=== PATIENT | female | born 1985 | race Caucasian/White ===

== ENCOUNTER 2023-04-14 19:31 | Observation (INO) ==
--- OUTSIDE RECORDS SUMMARY | 2023-04-14 19:37 | External Medical Summary | Continuity of Care Document ---
Author Name Unknown Organization [facility] [address] Address [address] [place] [id number] Care Team Providers Care Department Supervisor Name Role Phone Chiara Fortune Primary Care Physician [phone] [id number] Date[facility]s): 03/18/23 - 03/18/23 [facility] [address] [facility] [address] [place] [address], [address] [place] [address] [phone] Encounter Diagnosis 34 weeks gestation of (Discharge Diagnosis) - 03/18/23 Discharge Disposition: Home or Self Care Attending Physician: RYAN Hung Amy L Referring Physician: MD Tricia, Phong Gilbert Allergies, Adverse Reactions, Alerts No Known Allergies Immunizations Given and Recorded Vaccine Date Status Refusal Reason tetanus/diphtheria/pertuss, acel (Tdap) 02/07/23 G iven SARS-CoV-2 mRNA-1273 (6y+ bivalent) 02/06/22 Recor ded influenza virus vaccine, inactivated 02/02/21 Colt rded SARS-CoV-2 (COVID-19) mRNA BNT-162b2 vax 1 06/21/20 Recorded SARS-CoV-2 (COVID-19) mRNA BNT-162b2 vax 2 05/31/20 Recorded 1Result Comment: 2021-02-13: Historical information-source unspecified 2Result Comment: 2021-02-13: Historical information-source unspecified Medications aspirin 81 mg oral delayed release tablet Start: 03/18/23 13:25:00 EST, 1 tab, PO, Daily Start Date: 03/18/23 Status: Ordered enoxaparin 60 mg/0.6 mL injectable solution Start: 08/22/22 8:26:00 EDT, 60 mg =, subQ, q12h, Disp# 180 pen_needle, Refills: 3, Pharmacy: [facility] Start Date: 08/22/22 Stop Date: 08/17/23 Status: Ordered Flagyl 250 mg oral tablet Start: 03/07/23 15:05:00 EST, 2 tab, PO, q12h, Disp# 28, Pharmacy: [id number] Start Date: 03/07/23 Stop Date: 03/14/23 Status: Ordered Lasix 20 mg oral tablet Start: 12/20/22 15:11:00 EDT, 0.5 tab, PO, Daily, Disp# 30 tab, Refills: 3, Pharmacy: [id number] Start Date: 12/20/22 Status: Ordered Metoprolol Succinate ER 25 mg oral tablet, extended release Start: 02/09/23 12:15:00 EDT, See Instructions, Disp# 180 tab, Refills: 3, Take 1.5 tablets by mouth every evening (37.5 mg PO qPM), Pharmacy: [id number] Start Date: 02/09/23 Status: Ordered 1 Plus 1 oral tablet Start: 11/16/20 8:14:00 EDT, 1 tab, PO, Daily Start Date: 11/16/20 Status: Ordered Vitamin D2 Start: 12/10/18 15:57:00 EDT, 2 gummies, PO, Daily Start Date: 12/10/18 Status: Ordered Problem List Condition Confirmation Course Effective Dates Status H ealth Status Informant Junctional rhythm Confirmed Active Pacemaker Confirmed Active Cardiomyopathy Confirmed Active Complete heart block Confirmed Active History of complete heart block Confirmed Active History of TIA (transient ischemic attack) Confirmed Active Urine frequency Confirmed Active Iron deficiency anemia due to chronic blood loss Confirmed Active 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 Chronic anticoagulation Confirmed Active Spontaneous Confirmed Active Advanced maternal age in multigravida Confirmed Active Paroxysmal atrial fibrillation Confirmed Active Preop examination Confirmed Active Encounter for preconception consultation Confirmed Active Anticoagulation management encounter Confirmed Active Confirmed 07/22/22 Active Pulmonary hypertension Confirmed Active Right ventricular dilation Confirmed Active 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 Confirmed Active Urgency of urination Confirmed Active Septate uterus Confirmed Active PVC (premature ventricular contraction) Confirmed Active Diagnosis Diagnosis Type Effective Dates Health Status Cl inical Service Informant 34 weeks gestation of Discharge Diagnosis 03/18/23 Procedures Procedure Date Related Diagnosis Body Site Status Shave biopsy 1 09/15/20 Completed Cardioversion 2 10/01/19 Completed Pacemaker catheter, device 05/2019 Completed D&C - Dilatation and curettage 12/21/17 Completed 12/11/17 Completed [place] tooth extraction 2007 C ompleted uterine septum removal Co mpleted 1pelvic abdomen 2Underlying rhythm Afib with V Pacing Attempted CV with 200 joules x3 in sync biphasic mode without nondenominational of NSR Procedure aborted after three attempts Social History Social History Type Response Smoking Status Never smoked cigaret petra Sex Female Implantable Device List Procedure Provider Procedure Date Device Type Site Unknown Unknown 03/16/20 Unknown Unknown Device Identifier Serial Number Lot or Batch Number Manufacturing Date Expiration Date Distinct Identification Code MRI Safety Implantable Status Assigning Authority Unknown Unknown [id number] Unknown 02/20/22 Unknown Unknown Active Edink roderick Note * MD Stan, Livia Phillips: VERIFY, PERFORM Event Display: Report Authored Date: SERVICE(S) PROVIDED: Limited 97750 INDICATIONS: 34 weeks gestation of Z3A.34 Maternal cardiac disease growth restriction [employer] MANAGER: Technique: N/A EVALUATION: Num Of Fetuses: 1 Heart Rate(bpm): 138 Cardiac Activity: Present Presentation: Cephalic Placenta: Posterior Amniotic Fluid GUILLERMO FV: Within normal limits Largest Pocket(cm) 7.2 GESTATIONAL AGE: LMP: 34w 1d Date: 07/22/22 EVY: 04/28/23 Best: 34w 1d Det. By: LMP (07/22/22) EVY: 04/28/23 CERVIX UTERUS ADNEXA: Cervix Poorly seen due to late gestational age Uterus Previoiusly described uterine synechia not appreciated today. IMPRESSION: Reviewed: Normal AFV. Livia Pierce MD Electronically Signed Final Report 03/18/2023 12:20 pm Patient Care team information Care Team Personnel Name: MD Vishal, Vipin Rodríguez Position: Physician Member Role: Lifetime Relationship Address: Address: [address] [place] [id number] [place] Name: DO Fortune Kristen M Position: Physician - Family Med Member Role: Primary Care Provider Address: Address: [address] [place] [address] [place] Name: RYAN Bergman Stacey L Position: Nurse Pract - Cardiology Member Role: Lifetime Relationship Address: Address: [address] [place] [address] [place] Name: MD Bhatt Jansie Position: Physician - Anesthesiologist Member Role: Lifetime Relationship Address: Address: [address] [place] [id number] [place] Care Team Related Persons Name: REGINA LARRY Name: RACHEL DAVIES
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
--- OUTSIDE RECORDS SUMMARY | 2023-04-14 19:37 | External Medical Summary | Continuity of Care Document ---
Author Name Unknown Organization [place] [id number] [address] Address [address] [place] [address] [address] [place] [phone] Care Team Providers Care Divinity Professor Name Role Phone Chiara Fortune Primary Care Physician [phone] [facility] [id number] Date(s): 02/07/23 - [facility]07/23 [facility] [facility] Obstetrics and Gynecology [address] [place] [address], [address] [place] [address] [phone] Encounter Diagnosis Vaginal discharge in (Discharge Diagnosis) - 02/07/23 28 weeks gestation of (Discharge Diagnosis) - 02/07/23 Cardiomyopathy(Discharge Diagnosis) - 02/07/23 Discharge Disposition: Home or Self Care Attending Physician: MD Pierce Lauren A Referring Physician: MD Tricia, Phong Gilbert Allergies, Adverse Reactions, Alerts No Known Allergies Assessment and Plan Extracted from: Title:MFM Clinic Note Author:MD Sunil, Elias Ferraro Date:02/07/23 Patient is a 37yo at 28w4d with complicated by LV noncompaction cardiomyopathy, severe tricuspid regurgitation 1. 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 Repeat monthly - [employer] genetic testing in 2019 showed LMNA 2.Junctional rhythm with underlying atrial fibrillation s/p dual chamber pacemaker -Medtronic pacemaker in place, planned interrogation for 02/22/23 3.History ofTIA due to A fib -Continue Lovenox 60 mg BID 4. L subclavian DVT, chronic - Continue Lovenox 60mg BID for therapeutic anticoagulation -Uptitrate as needed according to weight gain in (1mg/kg BID) -On Eliquis outside of 5. History of delivery x 1 -Secondary to malpresentation -Planning for repeat delivery 6. History of GHTN in previous -Continue Aspirin 81 mg daily 7. 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 Iron deficiency anemia, resolved - Following with Dr. Rodgers -Most recently hemoglobin 11.0 02/05/23 9. AMA -Low risk NIPT, XY 10. History of growth restriction in previous -EFW 22% on ultrasound today. Next growth ultrasound scheduled for 03/07/23 11. 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 12. Routine care - 1hr GCT 77 -TDAP administered today GBS: unknown, to be collected at 36-37 weeks gestation Contraception: Levonorgestrel IUD at the time of delivery Delivery planning:Repeat deliveryandMirena IUDat 39 weeks, or sooner if any maternal or indications arise. Plan to stop Lovenox 24h prior to procedure 13. Vaginal discharge -Genital culture pending, will make patient aware of results when available and treat accordingly Extracted from: Title:Cardiology Office Visit Note Author:Vladimir García Amanda Date:02/07/23 Ms. Larry is a 37 yo F w ith a history of noncompaction cardiomyopathy (LMNA mutation of unknown clinical significance)and a junctional heart rhythm s/p dual chamber pacemaker placement who presents for follow up in the Cardio-Obstetrics clinic. She is a at 28+4 weeks' gestation (EVY 04/28/23). Ms. Larry continues to be stable. She had some episodes of NSVT on her cardiac device interrogation that were self limiting. We increased her beta mirlande dose but unfortunately she is not able to tolerate much of a chance due to fatigue and lightheadedness (likely also low BPs at baseline that may be affected by the increase). I discussed the NSVT episodes with Drs. Vega (ACHD/ Cardio-OB), Shane (primary home theater installer), and Tori (EP) and it is the consensus to try the increase in BB and continue monitoring, with another device check scheduled for 02/22. If she has further episodes of NSVT, especially those that would be longer or associated with symptoms of presyncope or syncope, she may require a Life Vest for the remainder of . We also discussed Ms. Larry's case at our monthly high risk Cardio-OB conference on 02/06, and the plan is for her to have an Anesthesia consult, SICU admission, planned CVC and A line, and delivery in the main OR. PACHD will be consulted while she is admitted for L&D. In the interim, we will continue to see her monthly with an echocardiogram ahead of her visit and keep in touch with her closelyto assess any new symptomsor concerns she may have. After delivery, she will need a referral to our Advanced Heart Failure colleagues for discussion of herLMNA mutation, given that she has several phenotypicallyconcordant cardiac features with classiclamin cardiomyopathy, desite her mutation of unknown clinical significance. Plan summary: - Reduce BB to 6.25 mg qAM and 25 mg qPM - If she is unable to tolerate this, stay with 25 mg qPM as previously tolerated - Repeat device interrogation 02/22/23 - Echo and return visit in 1 month. I will need to see her as an add-on 03/07 given that I am on inpatient service at that time - Delivery planning per M team, anticipate 39 weeks I saw an examined the patient today. I spent a total of45 minutes in care for the patient today. This includes review of data, formulation ofand coordination of care plan, and actual care provided to the patient. Greater than 50% of this time was spent in debb-vm-[id number] time with the patient in the clinic visit, where I explained in detail and counseledthe patient regarding his/ her/ theircurrent diagnoses, results of testing done thus far, andmanagement plan. Candy García MD [facility] Vessel Specialistgaming commissioner Adult Congenital Heart Disease and Cardio-Obstetrics Division of Cardiology, [facility] [place] Immunizations Given and Recorded Vaccine Date Status Refusal Reason tetanus/diphtheria/pertuss, acel (Tdap) 02/07/23 G iven SARS-CoV-2 mRNA-1273 (6y+ bivalent) 02/06/22 Recor ded influenza virus vaccine, inactivated 02/02/21 Colt rded SARS-CoV-2 (COVID-19) mRNA BNT-162b2 vax 1 06/21/20 Recorded SARS-CoV-2 (COVID-19) mRNA BNT-162b2 vax 2 05/31/20 Recorded 1Result Comment: 2021-02-13: Historical information-source unspecified 2Result Comment: 2021-02-13: Historical information-source unspecified Medications enoxaparin 60 mg/0.6 mL injectable solution Start: 08/22/22 8:26:00 EDT, 60 mg =, subQ, q12h, Disp# 180 pen_needle, Refills: 3, Pharmacy: [facility] Start Date: 08/22/22 Stop Date: 08/17/23 Status: Ordered Lasix 20 mg oral tablet Start: 12/20/22 15:11:00 EDT, 0.5 tab, PO, Daily, Disp# 30 tab, Refills: 3, Pharmacy: [id number] Start Date: 12/20/22 Status: Ordered Metoprolol Succinate ER 25 mg oral tablet, extended release Start: 02/09/23 12:15:00 EDT, See Instructions, Disp# 180 tab, Refills: 3, Take 1.5 tablets by mouth every evening (37.5 mg PO qPM), Pharmacy: [id number] Start Date: 02/09/23 Status: Ordered 1 Plus 1 oral tablet Start: 11/16/20 8:14:00 EDT, 1 tab, PO, Daily Start Date: 11/16/20 Status: Ordered Vitamin D2 Start: 12/10/18 15:57:00 EDT, See Instructions, 2 gummies daily Start Date: 12/10/18 Status: Ordered Mental Status 02/07/23 Barriers to Learning one year None evide nt Mandatory Health Literacy Documentation Yes Health Literacy Communication Barriers N ever Primary Language Equatorial Guinean Problem List Condition Confirmation Course Effective Dates [...] Diagnosis Diagnosis Type Effective Dates Health Status Clinical Service Informant 28 weeks gestation of Discharge Diagnosis 02/07/23 Vaginal discharge in Discharge Diagnosis 02/07/23 Non-Specified Cardiomyopathy Discharge Diagnosis 02/07/23 Non-Specified Procedures Procedure Date Related Diagnosis Body Site Status Shave biopsy 1 09/15/20 Completed Cardioversion 2 10/01/19 Completed Pacemaker catheter, device 05/2019 Completed D&C - Dilatation and curettage 12/21/17 Completed 12/11/17 Completed [place] tooth extraction 2007 C ompleted uterine septum removal Co mpleted 1pelvic abdomen 2Underlying rhythm Afib with V Pacing Attempted CV with 200 joules x3 in sync biphasic mode without spiritism of NSR Procedure aborted after three attempts Results Laboratory List Name Date Urine Protein/Glucose POC Outpt 02/07/23 Most recent to oldest [Reference Range]: 1 Glucose Urine Dipstick Ref Range [negati ve] (02/07/23 11:16 AM) Protein Urine Dipstick Ref Range [negati ve] (02/07/23 11:16 AM) U Protein Negative 1 (02/07/23 11:16 AM) U Gluc Negative (02/07/23 11:16 AM) 1Result Comment: Performed at: [facility]etrics [facility]necology, [address], [address], [place] [address] Orders for Microbiology Reports Name Date Fungus Culture, Vaginal w Smear (CULTURE ,FUNGUS(VAG)) 02/07/23 Gram Smear Only (GRAM SMEAR ONLY) Microbiology Reports TEST:Fungus.Culture, Vaginal STATUS:Unauthenticated BODY SITE: SOURCE:Vaginal COLLECTED DATE/TIME:02/07/23 6:00 PM Culture NO FUNGUS ISOLATED AFTER 1 DAY TEST:Gram.Smr Only STATUS:Auth (Verified) BODY SITE: SOURCE:Vaginal COLLECTED DATE/TIME:02/07/23 6:00 PM Status FINAL 02/07/2023 Vital Signs Most recent to oldest [Reference Range]: 1 Height 164.4 cm (02/07/23 11:17 AM) Patient Weight 61.0 kg (02/07/23 11:17 AM) Body Mass Index 22.57 kg/m2 (02/07/23 11:17 AM) Blood Pressure 117/77mmHg (02/07/23 11:17 AM) Cuff Pulse Pressure 40 mmHg (02/07/23 11:17 AM) BP Location # 1 Left Arm (02/07/23 11:17 AM) Social History Social History Type Response Smoking Status Never smoked cigaret petra Sex Female Implantable Device List Procedure Provider Procedure Date Device Type Site Unknown Unknown 03/16/20 Unknown Unknown Device Identifier Serial Number Lot or Batch Number Manufacturing Date Expiration Date Distinct Identification Code MRI Safety Implantable Status Assigning Authority Unknown Unknown [id number] Unknown 02/20/22 Unknown Unknown Active Unk nown MFM Outpt Note * MD Stan, Livia Phillips: MODIFY MD Stan, Livia Phillips: MODIFY, MODIFY Event Display: MFM Outpt Note Authored Date: [id number] Chief Complaint Return Cardio-Obstetrics visit at 28w4d History of Present Illness Anjali Larry is a 37 yo at 28w4d by LMP (07/22/22) consistent with 1TUS (performed at 9 weeks gestation)with EVY 04/28/23 who presents today for a routine visit in Cardio-Obstetrics clinic. Overall, she feels well. Reports some drowsiness with her increased dose of Metoprolol. She is currently taking Metoprolol 12.5 mg in the AM and 25 mg at night. Reports that the drowsiness is worse after her morning dose. Otherwise denies shortness of breath, orthopnea or chest pain. Reports intermittent palpitations which she reports is unchanged from previous. She had a repeat echocardiogram yesterday which was stable from previous. Denies regular contractions, vaginal bleeding or leaking of fluid. Reports movement. Reports an increased amount of vaginal discharge over the last week. Reports that it is yellow/green in color. Denies associated pruritus or odor. Denies concern for STIs. issues: 1. 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 h/o TIA due to A fib 4. L subclavian DVT, chronic 5. h/o CS 6. h/o gHTN in G1 7. h/o uterine septum resection 8. Iron deficiency anemia 9. AMA Visit Vital Signs/Measurements Systolic Blood Kcuzxlxo184 mmHg Diastolic Blood Qwbyuays98 mmHg Patient Ajobii49.0 kg Urine POC U ProteinNegative U GlucNegative Review of Systems As above, otherwise negative Physical Exam Vitals & Measurements BP:117/77 HT:164.4cm WT:61.0kg WT:61.000kg(Dosing) BMI:22.57 General: well appearing female in NAD Pulm: breathing comfortably on room air Pelvic: normal appearing external genitalia. Cervix closed appearing with small ectropion. Moderateamount of yellow discharge. Genital culture collected. Ext: symmetric bilaterally, no significant edema Assessment/Plan Patient is a 37yo at 28w4d with complicated by LV noncompaction cardiomyopathy, severe tricuspid regurgitation 1. 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 Repeat monthly - [employer] genetic testing in 2019 showed LMNA 2.Junctional rhythm with underlying atrial fibrillation s/p dual chamber pacemaker -Medtronic pacemaker in place, planned interrogation for 02/22/23 3.History ofTIA due to A fib -Continue Lovenox 60 mg BID 4. L subclavian DVT, chronic - Continue Lovenox 60mg BID for therapeutic anticoagulation -Uptitrate as needed according to weight gain in (1mg/kg BID) -On Eliquis outside of 5. History of delivery x 1 -Secondary to malpresentation -Planning for repeat delivery 6. History of GHTN in previous -Continue Aspirin 81 mg daily 7. 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 Iron deficiency anemia, resolved - Following with Dr. Rodgers -Most recently hemoglobin 11.0 02/05/23 9. AMA -Low risk NIPT, XY 10. History of growth restriction in previous -EFW 22% on ultrasound today. Next growth ultrasound scheduled for 03/07/23 11. 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 12. Routine care - 1hr GCT 77 -TDAP administered today GBS: unknown, to be collected at 36-37 weeks gestation Contraception: Levonorgestrel IUD at the time of delivery Delivery planning:Repeat deliveryandMirena IUDat 39 weeks, or sooner if any maternal or indications arise. Plan to stop Lovenox 24h prior to procedure 13. Vaginal discharge -Genital culture pending, will make patient aware of results when available and treat accordingly Delivery Plan Plan for RLTCS and Levonorgestrel IUD placement at 39 weeks gestation unless a clinical indication arises sooner. Follow Up -Follow up visit 02/18/23 -Follow up visit and growth ultrasound 03/07/23, please TigerText Dr. Candy García when patient is roomed as she plans to come see patient as well The patient was discussed and examined with Dr. Pierec who agrees with the assessment and plan. Lencho Barber MD PGY-6 Maternal- Medicine Fellow attending I saw & evaluated Anjali Larry along with MFM fellow Dr Barber and home theater installer Dr García. Worsening drowsiness/fatigue with the increase in metoprolol, so Dr García recommended AM 6.25 mg and PM 25 mg--if still symptomatic stop AM dose altogether. Continue LDA, LMWH. She can do NSTs in [place] rather than coming here, but we will increase visit frequency to [id number] now. She's getting her flu shot tomorros. LMP/EGA/EVY Gestational Age (EGA) and EVY * Note: EGA calculated as of 02/07/2023 EVY:04/28/2023EGA*:28 weeks 4 days Type:AuthoritativeMethod Date:07/22/2022 Method:Last Menstrual Period(07/22/2022) Confirmation:Confirmed Description:-- Comments:-- Entered by:JUAN LUIS Martinez Christine on 10/16/2022 Other EVY Calculations for this : No additional EVY calculations have been recorded for this OB History History(1,0,1,1) # 1 Baby 1 Outcome Date:2017 Outcome or Result: Gest Age:37 weeks Outcome:Live Sex:FemaleWt:1941 g [facility] Baby 1 Outcome Date:2021 Outcome or Result:Spontaneous Gest Age:-- Outcome: Sex:-- Problem List/Past Medical History Ongoing Advanced maternal age in multigravida Anticoagulation management [...] (05/2019)D&C - Dilatation and curettage (12/21/2017) (12/11/2017) [place] tooth extraction (2007)uterine septum removal Medications acetaminophen, 1000 mg= 2 tab, PO, ONCE, PRN aprepitant(Emend), 40 mg= 1 cap, PO, ONCE enoxaparin(enoxaparin 60 mg/0.6 mL injectable solution), 60 mg, subQ, q12h, 3 refills ergocalciferol(Vitamin D2), See Instructions furosemide(Lasix 20 mg oral tablet), 10 mg= 0.5 tab, PO, Daily, 3 refills metoprolol(Metoprolol Succinate ER 25 mg oral tablet, extended release), 25 mg= 1 tab, PO, bid, 3 refills multivitamin, ( 1 Plus 1 [...] MGM and PGF. Health Status Family Member(s) Electronic Signature on File Electronically Reviewed/Signed by: Lencho Barber MD Author Signature Dt/Tm:02/07/2023 01:04 PM Resident Division of Women's Health Electronically Reviewed/Signed by: Lencho Barber MD Cosigner Signature Dt/Tm: 02/07/2023 01:06 PM Resident Division of Women's Health Electronically Reviewed/Signed by: Livia Pierce MD Cosigner Signature Dt/Tm: 02/07/2023 03:13 PM Division of Maternal Medicine [facility] Cardiology Outpatient Note * MD García Amanda: PERFORM Event Display: Cardiology Outpt Note Authored Date: Primary Care Provider DO Fortune Kristen M Referring Provider MD Clarke William M Reason for Consultation Cardiomyopathy, Chief Complaint return M ob visit & C-OB....28weeks & 4days...boy History of Present Illness Ms. Larry is a 37 yo F with a history of noncompaction cardiomyopathy and a junctional heart rhythm s/p dual chamber pacemaker placement who presents for follow up in the Cardio-Obstetrics clinic. She is a at 28+4 weeks' gestation (EVY 04/28/23). Ms. Larry is a longtime patient of in [place] - please see his initial note from 12/10/2018 for an in- depthreview of her extensive cardiac history. 11/08/22- Wefir saw Ms. Larry in the Cardio-OB clinic, at which time she reported feeling overall well with only complaints of some occasional palpitations that improved with routine exercise.Her echo showed a drop in her EF from 60 to 50% with some increased RA and RV dilation which was presumed due to HD effects of on top of her existing LVNC. We made no changes to her plan and asked for her to self monitor for symptoms closely and follow up in 1 month with another echo. 12/06/22- She returned for a second visit, at which point she reported feeling slightly more fatigued and that she had stopped running for exercise. She attributed her fatigue to FARIBA - getting IV ironinfusions. She also reported slightly more palpitations and her metoprolol was increased from 12.5 to 25qPM prior to that visit. 12/11/22- We discussed Ms. Larry in our PACHD surgical conference with Dr. Lynn joining. Etiology of her HF thought to be potentially severe TR/ RV dysfunction leading to LV dysfunction vs. beginning of dilated CM. Recommended discussion with AHF andICU level admission for delivery (for CVC and invasive hemodynamic monitoring).I spoke to Dr. Bruner after this conference call, and hewasmore suspicious of anLV cardiomyopathy etiology, perhaps related to her LMNA mutation. He was in agreement with close surveillance and careful medical management throughout , with full AHFconsultation after delivery. At this time, the group did not feel strongly that she needs to move down closer to [place] in the late second/ early third trimester or have any MCS on standby (e.g., delivery in a hybrid OR, pre-emptive cannulation for ECMO) for her delivery as long as she continues to do well clinically for the remainder of her leading up to delivery 12/20/22- Saw Dr. Lynn locally in [place], noted some leg swelling, was prescribed lasix 10 mg daily and advised to try compression stockings. She was also referred back to device clinic to see if increasing the sensitivity of her device would help with some of her exertional symptoms.She went to [place] for a work trip shortly after this, early December. In the interim since I last saw her, Ms. Larry had a device interrogation which showed two self-limited episodes of NSVT. Her EP physician, Dr. Valle, recommended increasing her BB and we increased her from metoprolol succinate 25 mg qPM to 25 mg BID. Unfortunately, she could not tolerate this due to fatigue and dizziness, so we reduced her to metop succinate 12.5 qAM and 25 qPM. She reports she is doing "just okay" on this dose. She is still slightly fatigued and lightheaded though has nothad any presyncopal or syncopal episodes. She denies significant palpitations, CP, SOB, VELASQUEZ, orthopnea/ PND or leg swelling. She is still working and plans to work up until her delivery. She stopped r unning but mostly because of discomfort with her growing abdomen- she is still walking a lot and onher feet all day without much difficulty. She had a echo done last month which was normal. Pastmedical history: 1. Accelerated hypertension in the third trimester of her first . 2. Cardiac MRI concerning for ventricular noncompaction (preserved LV function), although her right ventricle is markedly dilated with severe tricuspid regurgitation of unclear etiology. - Genetic testing 05/2019with LMNA gene variant of unknown significance: [id number] ([id number]) 3. Junctional rhythm with underlying atrial fibrillation status post dual- chamber pacemaker (Medtronic MRI compatible) 05/2019. 4. TIA secondary to underlying atrial fibrillation. 5. Significantly abnormal right ventricle, right atrium and left atrium with severe tricuspid regurgitation secondary to mal-coaptation and prominent trabeculation of the RV and LV. 6. Status post emergency for at the time what was thought to be pre- eclampsia. 7. Status post surgery for a septated uterus and placement of an IUD 02/2020 to reduce her LOOM INSPECTOR bleeding. 8. Significant anemia secondary to LOOM INSPECTOR bleeding and secondary iron deficiency. 9. Findings consistent with a partially recanalized chronic DVT involving the left subclavian, 02/09/20, at the site of her pacemaker [1] Social history: denies smoking,ETOH, drug use. 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 Physical Exam Vitals & Measurements BP:117/77 HT:164.4cm WT:61.0kg WT:61.000kg(Dosing) BMI:22.57 General: Well appearing female sitting in examination room in no acute distress. Sheis awake, alert, and oriented. HEENT:Extraocular muscles are intact bilateral.Neck is supple.No masses.No carotid bruits were appreciated on auscultation. Lungs:Clear to auscultation bilateral without focal wheezes or crackles. Cardiovascular:Regular rate and rhythm.There are no rubs orgallops.Soft systolic murmurLSB.Normal sounding S2. Jugular venous pulsation is observed at level of neck with patient sitting upright. Abdomen:Gravid Extremities:No clubbing, cyanosis, or edema.Radial pulses are 2+ bilateral. Skin:No rashes, excoriations, ulcerations, wounds. Musculoskeletal: Normal gait, hand air twist operator +5/5 bilaterally. Neuro:Cranial nerves II-XII grossly intact.No focal deficits were noted. Psychiatric:Normal mood and affect. Diagnostic Results Echocardiogram 02/06/23 1. Mildly dilated left ventricle for BSA. 2. Normal LV systolic function with no regional wall motion abnormalities. 3. Ejection fraction as calculated by Biplane Simpsons method is 55-60%. 4. Global endocardial peak longitudinal strain is -20%. 5. LV septal flattening in diastole consistent with right heart volume overload. 6. No left ventricular hypertrophy. 7. Heavily trabeculated left ventricle consistent with LV non-compaction. 8. Severely dilated left atrium. 9. Moderately dilated right ventricle with normal systolic function. 10. Markedly dilated right atrium. 11. Malcoaptation of the tricuspid valve leaflets secondary to annular dilation. 12. Severe tricuspid regurgitation with hepatic vein systolic flow reversal. 13. Moderate mitral regurgitation. 14. Mildly elevated pulmonary artery pressures, estimated PASP is 39 mmHg. 15. Estimated pulmonary arterial mean pressure is elevated (32 mmHg). 16. Compared to the prior study of a month ago, there is no change. [2] Echocardiogram 01/07/23 Summary 1. Mildly dilated left ventricle. 2. Normal LV systolic function with no regional wall motion abnormalities. 3. Ejection fraction as calculated by Biplane Simpsons method is 55%. 4. Global endocardial peak longitudinal strain is -19%. 5. LV septal flattening in diastole c/w right heart volume overload. 6. No left ventricular hypertrophy. 7. Heavily trabeculated left ventricle, consistent with LV non-compaction. 8. Moderately dilated right ventricle. 9. TAPSE is normal, 1.7 cm. Normal RV function. 10. Severely dilated left atrium. 11. Markedly dilated right atrium. 12. Moderate mitral regurgitation. 13. Malcoaptation of the tricuspid valve leaflets secondary to annular dilation. 14. Severe tricuspid regurgitation. 15. Hepatic vein systolic flow reversal, secondary to severe tricuspid valve regurgitation. 16. Normal estimated pulmonary artery pressures, estimated PASP is 27 mmHg. 17. Estimated pulmonary arterial mean pressure is elevated (30 mmHg). 18. Compared to the previous study performed 12/03/2022, the RV may be slightly larger but otherwise there is no significant change. [2] Echocardiogram 11/29/2022 1. Normal left ventricular size. 2. Mild global LV hypokinesis with mildly reduced LV systolic function. 3. Ejection fraction as calculated by Biplane Simpsons method is 50%. 4. Abnormal septal motion with flattening is systole and diastole c/w RV pressure and volume overload. 5. No left ventricular hypertrophy. 6. Heavily trabeculated left ventricle, consistent with LV non-compaction. 7. Normal E/e' ratio (8). 8. Moderately dilated right ventricle with preserved systolic function. 9. TAPSE is normal, 2.0 cm. 10. Severely dilated left atrium. 11. Markedly dilated right atrium. 12. Moderate mitral regurgitation. 13. Malcoaptation of the tricuspid valve leaflets secondary to annular dilation. 14. Severe tricuspid regurgitation. 15. Normal estimated pulmonary artery pressures, estimated PASP 32 mmHg. 16. Estimated pulmonary arterial mean pressure 33 mmHg. 17. Compared to the previous study performed 11/02/2022, there is no significant change. [2] Echocardiogram 11/02/2022 Summary 1. Normal left ventricular size. 2. Abnormal septal motion with flattening is systole and diastole c/w RV pressure and Volume overload. 3. Mild global LV hypokinesis with mildly reduced LV systolic function. 4. Ejection fraction as calculated by Biplane Simpsons method is 50%. 5. No left ventricular hypertrophy. 6. Heavily trabeculated left ventricle, consistent with LV non-compaction. 7. Normal E/e' ratio (8). 8. Moderately dilated right ventricle with normal systolic function. 9. TAPSE is normal, 1.8 cm. 10. Device lead noted in right ventricle. 11. Moderately dilated left atrium. 12. Markedly dilated right atrium. 13. Mild to moderate mitral regurgitation. 14. Malcoaptation of the tricuspid valve leaflets secondary to annular dilation. 15. Severe tricuspid regurgitation. 16. Normal estimated pulmonary artery pressures, estimated PASP 26 mmHg. 17. Estimated pulmonary arterial mean pressure 24 mmHg. 18. Compared to the previous study performed 08/03/2020, the LV ejection fraction has slightly worsened and the right ventricle (RV 4C 4.3 cm to 5.0 cm) and right atrium are more dilated. [1] Echocardiogram 08/03/2020 Normal LV size and systolic function with no regional wall motion abnormalities. Abnormal septal motion, consistent with pacemaker. Biplane ejection fraction is 60%. No left ventricular hypertrophy. Heavily trabeculated left ventricle, consistent with LV non-compaction. Normal E/e' ratio (7). Moderately dilated left atrium. Dilated right atrium. Dilate right ventricle with normal systolic function. TAPSE is 1.9 cm. Pacemaker lead visualized in the RV attached to the ventricular septum. Normal inferior vena cava dimensions and inspiratory collapse. Severe tricuspid regurgitation. Mild pulmonary hypertension (PASP is 36 mmHg). Mild mitral regurgitation. Compared to the previous study performed 10/16/2019, there is no significant change. [2] [1] (12/03/2022 16:51 EDT Echo TransTHORacic TTE Complete) Cardiac MRI 03/31/2019 SUMMARY: 1.Mild LV dilation with normal wall motion and mass; the EF is 72%. There is noncompaction present. There is increased T2 signal compatible with edema. There is no evidence of fibrosis. 2.Severe RV dilation with normal wall motion and wall thickness; the EF is 60%. 3.Biatrial dilation. 4.Findings compatible with significant tricuspid regurgitation. 5.Splenic masses as described (cysts?) 6.Bradycardia [1] (01/07/2023 10:33 EDT Echo TransTHORacic TTE Complete) [2] (02/06/2023 09:36 EDT Echo TransTHORacic TTE Complete) Assessment/Plan Ms. 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 She is a at 28+4 weeks' gestation (EVY 04/28/23). Ms. Larry continues to be stable. She had some episodes of NSVT on her cardiac device interrogation that were self limiting. We increased her beta mirlande dose but unfortunately she is not able to tolerate much of a chance due to fatigue and lightheadedness (likely also low BPs at baseline that may be affected by the increase). I discussed the NSVT episodes with Drs. Vega (ACHD/ Cardio-OB), Shane (primary home theater installer), and Tori (EP) and it is the consensus to try the increase in BBand continue monitoring, with another device check scheduled for 02/22. If she has further episodes of NSVT, especially those that would be longer or associated with symptoms of presyncope or syncope,she may require a Life Vest for the remainder of . We also discussed Ms. Larry's case at our monthly high risk Cardio-OB conference on 02/06, and the plan is for her to have an Anesthesia consult, SICU admission, planned CVC and A line, and delivery in the main OR. PACHD will be consulted while she is admitted for L&D. In the interim, we will continue to see her monthly with an ec hocardiogram ahead of her visit and keep in touch with her closelyto assess any new symptomsor concerns she may have. After delivery, she will need a referral to our Advanced Heart Failure colleagues for discussion of herLMNA mutation, given that she has several phenotypicallyconcordant cardiac features with classiclamin cardiomyopathy, desite her mutation of unknown clinical significance. Plan summary: - Reduce BB to 6.25 mg qAM and 25 mg qPM - If she is unable to tolerate this, stay with 25 mg qPM as previously tolerated - Repeat device interrogation 02/22/23 - Echo and return visit in 1 month. I will need to see her as an add-on 03/07 given that I am on inpatient service at that time - Delivery planning per [facility] team, anticipate 39 weeks I saw an examined the patient today. I spent a total of45 minutes in care for the patient today. This includes review of data, formulation ofand coordination of care plan, and actual care provided to the patient. Greater than 50% of this time was spent in [id number] time with the patient in the clinic visit, where I explained in detail and counseledthe patient regarding his/ her/ theircurrent diagnoses, results of testing done thus far, andmanagement plan. Candy García MD [facility] Vessel Specialistgaming commissioner Adult Congenital Heart Disease and Cardio-Obstetrics Division of Cardiology, [facility] [place] Problem List/Past Medical History Ongoing Advanced maternal age in multigravida Anticoagulation management [...] (05/2019)D&C - Dilatation and curettage (12/21/2017) (12/11/2017) [place] tooth extraction (2007)uterine septum removal Medications acetaminophen, 1000 mg= 2 tab, PO, ONCE, PRN aprepitant(Emend), 40 mg= 1 cap, PO, ONCE enoxaparin(enoxaparin 60 mg/0.6 mL injectable solution), 60 mg, subQ, q12h, 3 refills ergocalciferol(Vitamin D2), See Instructions furosemide(Lasix 20 mg oral tablet), 10 mg= 0.5 tab, PO, Daily, 3 refills metoprolol(Metoprolol Succinate ER 25 mg oral tablet, extended release), 25 mg= 1 tab, PO, bid, 3 refills multivitamin, ( 1 Plus 1 [...] MGM and PGF. Health Status Family Member(s) [1]Cardiology Office Visit Note; MD García Amanda 01/10/2023 17:29 EDT [2]Cardiology Office Visit Note; MD García Amanda 01/10/2023 17:29 EDT Electronic Signature on File Electronically Reviewed/Signed by: Candy García M.D. Author Signature Dt/Tm:02/09/2023 12:12 PM [facility] [place] AC Note * MD Tricia, Phong Gilbert: VERIFY, PERFORM Event Display: Report Authored Date: [id number] SERVICE(S) PROVIDED: Follow-up, single fetus [id number] INDICATIONS: 28 weeks gestation of Z3A.28 For growth Maternal heart condition FGR in prior Polyhydramnios in the third trimester 02-07- [id number] 23 SAP BODS DEVELOPER: Technique: N/A EVALUATION: Num Of Fetuses: 1 Heart Rate(bpm): 160 Cardiac Activity: Present Presentation: Breech Placenta: Posterior, fundal Amniotic Fluid GUILLERMO FV: Mild Polyhydramnios (8-11.9 cm) Largest Pocket(cm) 8.9 Comment: 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 Age: 28w 4d 37 % CI: 70.98 % 70 - 86 FL/HC: 18.0 % 19.6 - 20.8 HC: 268.9 mm G. Age: 29w 2d 40 % HC/AC: 1.08 0.99 - 1.21 AC: 248.2 mm G. Age: 29w 0d 58 % FL/BPD: 68.2 % 71 - 87 FL: 48.5 mm G. Age: 26w 2d 1.3 % FL/AC: 19.5 % 20 - 24 HUM: 49.1 mm G. Age: 29w 0d 50 % Est. FW: 1177 gm 2 lb 10 oz 22 % GESTATIONAL AGE: LMP: 28w 4d Date: 07/22/22 EVY: 01/07/24 U/S Today: 28w 2d EVY: 04/30/23 Best: 28w 4d Det. By: LMP (07/22/22) EVY: 04/28/23 -------- ANATOMY: -------- Cranium: Appears WNL Stomach: On left, appears WNL Ventricles: Appears WNL Kidneys: Appear WNL Heart: [place] to left Bladder: Appears WNL Diaphragm: Appears WNL CERVIX UTERUS ADNEXA: Cervix Poorly seen due to late gestational age IMPRESSION: The estimated weight of 1177 grams is at the 22 %ile. There is polyhydramnios with a deepest vertical pocket of 8.9 . The estimated weight of 1177 grams is at the 22 %ile. 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 The patient has a visit in Cardio-Ob clinic to follow. Phong Clarke MD Electronically Signed Final Report 02/07/2023 10:55 am Patient Care team information Care Team Personnel Name: MD Vishal, Vipin Rodríguez Position: Physician Member Role: Lifetime Relationship Address: Address: [address] [place] [address] Name: DO Fortune Kristen M Position: Physician - Family Med Member Role: Primary Care Provider Address: Address: [address] [address] [place] Name: RYAN Bergman Stacey L Position: Nurse Pract - Cardiology Member Role: Lifetime Relationship Address: Address: [address] [place] [address] [place] Name: MD Bhatt Jansie Position: Physician - Anesthesiologist Member Role: Lifetime Relationship Address: Address: [address] [place] [address] [place] Care Team Related Persons Name: REGINA LARRY Name: RACHEL DAVIES
--- OUTSIDE RECORDS SUMMARY | 2023-04-14 19:37 | External Medical Summary | Continuity of Care Document ---
Author Name Unknown Organization [facility] Address [address] [place] [id number] Care Team Providers Care Hotbed Transfer Operator Name Role Phone Devika Chiara M Primary Care Physician [phone] Encounter [facility] [id number] Date(s): 03/25/23 - 03/25/23 [facility] [place] [facility] [address] [facility] [address] [place] [phone] Encounter Diagnosis Iron deficiency anemia(Discharge Diagnosis) - 03/25/23 Discharge Disposition: Home or Self Care Attending Physician: MD Rodgers Peter H Referring Physician: MD Rodgers Peter H Allergies, Adverse Reactions, Alerts No Known Allergies Functional Status 03/25/23 Gait Steady Immunizations Given and Recorded Vaccine Date Status [...] Disp# 180 pen_needle, Refills: 3, [facility]acy: [facility] Start Date: 08/22/22 Stop Date: 08/17/23 Status: Ordered Lasix 20 mg oral tablet Start: 12/20/22 15:11:00 EDT, 0.5 tab, PO, Daily, Disp# 30 tab, Refills: 3, PRN ONLY, Pharmacy: [id number] Start Date: 12/20/22 Status: Ordered Metoprolol Succinate ER 25 mg oral tablet, extended release Start: 02/09/23 12:15:00 EDT, See Instructions, Disp# 180 tab, Refills: 3, Take 1.5 tablets by mouth every evening (37.5 mg PO qPM), Pharmacy: [id number] Start Date: 02/09/23 Status: Ordered 1 Plus 1 oral tablet Start: 11/16/20 8:14:00 EDT, 1 tab, PO, Daily Start Date: 11/16/20 Status: Ordered Vitamin B12 Start: 03/22/23 14:56:00 EST Start Date: 03/22/23 Status: Ordered Vitamin D2 Start: 12/10/18 15:57:00 EDT, 2 gummies, PO, Daily Start Date: 12/10/18 Status: Ordered Mental Status 03/25/23 Barriers to Learning one year None evide nt Mandatory Health Literacy Documentation Yes Communication Barrier Present No Health Literacy Communication Barriers N ever Primary Language Belarusian Problem List Condition Confirmation Course Effective Dates [...] Effective Dates Health Status Clinical Service Informant Iron deficiency anemia Discharge Diagnosis 03/25/23 Non-Specified Procedures Procedure Date Related Diagnosis Body Site Status Shave biopsy 1 09/15/20 Completed Cardioversion 2 10/01/19 Completed Pacemaker catheter, device 05/2019 Completed D&C - Dilatation and curettage 12/21/17 Completed 12/11/17 Completed [place] tooth extraction 2007 C ompleted uterine septum removal Co mpleted 1pelvic abdomen 2Underlying rhythm Afib with V Pacing Attempted CV with 200 joules x3 in sync biphasic mode without jew of NSR Procedure aborted after three attempts Vital Signs Most recent to oldest [Reference Range]: 1 2 Patient Weight 63.3 kg (03/25/23 8:40 AM) Temperature [36.5-37.9 DegC] 36.8 DegC (03/25/23 11:00 AM) 36.0 DegC *LOW* (03/25/23 8:40 AM) Heart Rate 60 bpm (03/25/23 11:00 AM) 89 bpm (03/25/23 8:40 AM) Respiratory Rate 18 br/min (03/25/23 11:00 AM) 18 br/min (03/25/23 8:40 AM) Blood Pressure 125/87mmHg (03/25/23 11:00 AM) 120/82mmHg (03/25/23 8:40 AM) BP Location # 1 Left Arm (03/25/23 8:40 AM) Social History Social History Type Response Smoking Status Never smoked cigaret petra Sex Female Implantable Device List Procedure Provider Procedure Date Device Type Site Unknown Unknown 03/16/20 Unknown Unknown Device Identifier Serial Number Lot or Batch Number Manufacturing Date Expiration Date Distinct Identification Code MRI Safety Implantable Status Assigning Authority Unknown Unknown [id number] Unknown 02/20/22 Unknown Unknown Active Unk antionen Patient Care team information Care Team Personnel Name: MD Vishal, Vipin Rodríguez Position: Physician Member Role: Lifetime Relationship Address: Address: [address] [place] [address] [place] Name: Murtaza Grubbs Kimberly Position: Pharmacist BCMA Member Role: Pharmacy - Lifetime Address: Address: [place] [address] [place] Name: DO Fortune Kristen M Position: Physician - Family Med Member Role: Primary Care Provider Address: Address: [address] [facility] [address] [place] [address] [place] Name: RYAN Bergman Stacey L Position: Nurse Pract - Cardiology Member Role: Lifetime Relationship Address: Address: [address] [place] [address] [place] Name: MD Bhatt Jansie Position: Physician - Anesthesiologist Member Role: Lifetime Relationship Address: Address: [address] [place] [address] [place] [address] [place] Care Team Related Persons Name: REGINA LARRY Name: RACHEL DAVIES
--- OUTSIDE RECORDS SUMMARY | 2023-04-14 19:37 | External Medical Summary | Continuity of Care Document ---
Author Name Unknown Organization [facility] [address] Address [address] [facility] [address] [place] [id number] Care Team Providers Care Deicer Tester Name Role Phone Chiara Fortune Primary Care Physician [phone] [id number]/18/23 - 03/18/23 [facility] [address] [facility] [address] [place] [address], [address] [place] [address] [phone] Encounter Diagnosis 34 weeks gestation of (Discharge [...] 2 tab, PO, q12h, Disp# 28, Pharmacy: [id number] Start Date: 03/07/23 Stop Date: 03/14/23 Status: Ordered Lasix 20 mg oral tablet Start: 12/20/22 15:11:00 EDT, 0.5 tab, PO, Daily, Disp# 30 tab, Refills: 3, Pharmacy: [id number] Start Date: 12/20/22 Status: Ordered Metoprolol Succinate ER 25 mg oral tablet, extended release Start: 02/09/23 12:15:00 EDT, See Instructions, Disp# 180 tab, Refills: 3, Take 1.5 tablets by mouth every evening (37.5 mg PO qPM), Pharmacy: [id number] Start Date: 02/09/23 Status: Ordered 1 Plus 1 oral tablet Start: 11/16/20 8:14:00 EDT, 1 tab, PO, Daily Start Date: 11/16/20 Status: Ordered Vitamin D2 Start: 12/10/18 15:57:00 EDT, 2 gummies, PO, Daily Start Date: 12/10/18 Status: Ordered Mental Status 03/18/23 Barriers to Learning one year None evide nt Mandatory Health Literacy Documentation Yes Health Literacy Communication Barriers N ever Primary Language French Problem List Condition Confirmation Course Effective Dates [...] Dilatation and curettage 12/21/17 Completed 12/11/17 Completed [place] tooth extraction 2007 C ompleted uterine septum removal Co mpleted 1pelvic abdomen 2Underlying rhythm Afib with V Pacing Attempted CV with 200 joules x3 in sync biphasic mode without shinto of NSR Procedure aborted after three attempts Vital Signs Most recent to oldest [Reference Range]: 1 Patient Weight 63.2 kg (03/18/23 11:14 AM) Blood Pressure 124/81mmHg (03/18/23 11:14 AM) Social History Social History Type Response Smoking Status Never smoked cigaret petra Sex Female Implantable Device List Procedure Provider Procedure Date Device Type Site Unknown Unknown 03/16/20 Unknown Unknown Device Identifier Serial Number Lot or Batch Number Manufacturing Date Expiration Date Distinct Identification Code MRI Safety Implantable Status Assigning Authority Unknown Unknown [id number] Unknown 02/20/22 Unknown Unknown Active Unk nown Patient Care team information Care Team Personnel Name: MD Vishal, Vipin Rodríguez Position: Physician Member Role: Lifetime Relationship Address: Address: [address] [place] [address] [place] Name: DO Fortune Kristen M Position: Physician - Family Med Member Role: Primary Care Provider Address: Address: [address] [place] [address] [place] Name: RYAN Bergman Stacey L Position: Nurse Pract - Cardiology Member Role: Lifetime Relationship Address: Address: [address] [place] [address] [place] Name: MD Bhatt Jansie Position: Physician - Anesthesiologist Member Role: Lifetime Relationship Address: Address: [address] [place] [address] [place] Care Team Related Persons Name: REGINA LARRY Name: RACHEL DAVIES
--- OUTSIDE RECORDS SUMMARY | 2023-04-14 19:37 | External Medical Summary | Continuity of Care Document ---
Author Name Unknown Organization [facility] [address] [place] [address] [place] [phone] Care Team Providers Care Store Grocery Merchandiser Name Role Phone Chiara Fortune Primary Care Physician [phone] [facility] [id number] Date(s): 02/22/23 - 02/22/23 [facility] [address] [facility] [place] - [facility] [address], [address] [place] [address] [phone] Discharge Disposition: Home or Self Care Attending Physician: MD Tori, Rose Gilbert Allergies, Adverse Reactions, Alerts No Known [...] Daily, Disp# 30 tab, Refills: 3, Pharmacy: [id number] Start Date: 12/20/22 Status: Ordered Metoprolol Succinate ER 25 mg oral tablet, extended release Start: 02/09/23 12:15:00 EDT, See Instructions, Disp# 180 tab, Refills: 3, Take 1.5 tablets by mouth every evening (37.5 mg PO qPM), Pharmacy: [id number] Start Date: 02/09/23 Status: Ordered 1 Plus 1 oral tablet Start: 11/16/20 8:14:00 EDT, 1 tab, PO, Daily Start Date: 11/16/20 Status: Ordered Vitamin D2 Start: 12/10/18 15:57:00 EDT, See Instructions, 2 gummies daily Start Date: 12/10/18 Status: Ordered Problem List [...] Active PVC (premature ventricular contraction) Confirmed Active Procedures Procedure Date Related Diagnosis Body Site Status Shave biopsy 1 09/15/20 Completed Cardioversion 2 10/01/19 Completed Pacemaker catheter, device 05/2019 Completed D&C - Dilatation and curettage 12/21/17 Completed 12/11/17 Completed [place] tooth extraction 2007 C ompleted uterine septum removal Co mpleted 1pelvic abdomen 2Underlying rhythm Afib with V Pacing Attempted CV with 200 joules x3 in sync biphasic mode without mandaen of NSR Procedure aborted after three attempts Social History Social History Type Response Smoking Status Never smoked cigaret petra Sex Female Implantable Device List Procedure Provider Procedure Date Device Type Site Unknown Unknown 03/16/20 Unknown Unknown Device Identifier Serial Number Lot or Batch Number Manufacturing Date Expiration Date Distinct Identification Code MRI Safety Implantable Status Assigning Authority Unknown Unknown [id number] Unknown 02/20/22 Unknown Unknown Active Edink roderick Patient Care team information Care Team Personnel Name: MD Rodgers Peter H Position: Physician Member Role: Lifetime Relationship Address: Address: [address] [place] [id number] [place] Name: DO Fortune Kristen M Position: Physician - Family Med Member Role: Primary Care Provider Address: Address: [address] [place] [address] [place] Name: RYAN Bergman Stacey L Position: Nurse Pract - Cardiology Member Role: Lifetime Relationship Address: Address: [address] [place] [address] [place] Name: MD Bhatt Jansie Position: Physician - Anesthesiologist Member Role: Lifetime Relationship Address: Address: [address] [place] [address] [place] Care Team Related Persons Name: REGINA LARRY Name: RACHEL DAVIES
--- OUTSIDE RECORDS SUMMARY | 2023-04-14 19:37 | External Medical Summary | Continuity of Care Document ---
Author Name Unknown Organization [place] [address] [address] K Address [address] [place], [place] [id number] Care Team Providers Care Wire Winding Machine Tender Name Role Phone Chiara Fortune Primary Care Physician [phone] Encounter [facility] [id number] Date(s): 02/06/23 - 02/06/[address], [address] [place] [address] [phone] Discharge Disposition: Home or Self Care Attending Physician: MD García Amanda Referring Physician: MD García Amanda Allergies, Adverse Reactions, Alerts No Known Allergies [...] Daily, Disp# 30 tab, Refills: 3, Pharmacy: [id number] Start Date: 12/20/22 Status: Ordered Metoprolol Succinate ER 25 mg oral tablet, extended release Start: 01/24/23 12:55:00 EDT, 1 tab, PO, bid, Disp# 180 tab, Refills: 3, take half tab in the AM and 1 tab in the evening, Pharmacy: [id number] Start Date: 01/24/23 Status: Ordered 1 Plus 1 oral tablet [...] Dilatation and curettage 12/21/17 Completed 12/11/17 Completed [place] tooth extraction 2007 C ompleted uterine septum removal Co mpleted 1pelvic abdomen 2Underlying rhythm Afib with V Pacing Attempted CV with 200 joules x3 in sync biphasic mode without jain of NSR Procedure aborted after three attempts Results Radiology Reports * Exam Date Time Procedure Performing Provider Status 02/06/23 9:36 AM Echo TransTHORacic TTE Complete Steel e, Liza; Final Notes: (Echo TransTHORacic TTE Complete) Reason For Exam: LV non compaction cardiomyopathy, Echo TransTHORacic TTE Complete Report Signatures Finalized by Dr. Sai Lynn MD on 02/06/2023 12:44 PM [place] Act 112: Yes - Discussed with patient Summary 1. Mildly dilated left ventricle for BSA. [...] a month ago, there is no change. Patient Info Name: CINDY LARRY Age: 37 years : 1985 Gender: Female Ht: 160 cm Wt: 59 kg BSA: 1.63 m2 HR: 87 bpm BP: 112 / 60 mmHg Heart Rhythm: Sinus Rhythm Technical Quality: Excellent Exam Date: 02/06/2023 8:57 AM Exam Location: [facility] Patient Status: Outpatient Staff Ordering Physician: Candy García Invas Tech: Liza Alejandra RDCS, RVT Attending Physician: Candy García (acai) Study Info CPT 08398 - 73969 - Indications - - LV Non-compaction I429 - Cardiomyopathy, unspecified Procedure(s) * A complete two-dimensional, color flow and Doppler transthoracic echocardiogram was performed. * Strain Imaging was added to further interrogate the severity of disease. Exam Type: Cardiac Basic Left Atrium Severely dilated left atrium. Right Atrium Markedly dilated right atrium. Device lead noted in RA. Atrial Septum Appears intact (negative bubble study performed 01/12/2019). Hepatic Veins Hepatic vein systolic flow reversal, secondary to severe tricuspid valve regurgitation. Pericardium/Pleural No pericardial effusion. Inferior Vena Cava Dilated IVC with reduced (less than 50%) collapse. Estimated right atrial pressure is 15 mmHg. Aorta Normal aortic root, ascending aorta and aortic arch. Left Ventricular Outflow Tract Name Value Normal LVOT 2D LVOT Diameter 1.9 cm LVOT Doppler LVOT Peak Velocity 1.08 m/s LVOT Peak Gradient 5 mmHg LVOT Mean Gradient 2 mmHg LVOT VTI 17.35 cm LVOT Stroke Volume 49.57 ml LVOT Stroke Volume Index 0.03 l/m2 LVOT Cardiac Output 4.31 l/min LVOT Cardiac Index 2.65 L/min/m2 Pulmonic Valve Name Value Normal PV 2D RVOT Diameter (2D) 2.2 cm 1.7-2.7 RVOT Doppler RVOT Peak Velocity 0.57 m/s RVOT Peak Gradient 1 mmHg PV Doppler PV Peak Gradient 3 mmHg PV Regurgitation Doppler OK Peak Velocity 2.08 m/s Mitral Valve Name Value Normal MV Doppler MV PHT 62 ms MV Diastolic Function MV E Peak Velocity 0.89 m/s <=0.50 MV A Peak Velocity 0.44 m/s MV E/A 2.02 <=0.80 MV Decel Time 215 ms MV Annular TDI MV Septal s' Velocity 6.57 cm/s MV Septal e' Velocity 7.62 cm/s >=7.00 MV E/e' (Septal) 11.7 <=8.0 MV Lateral s' Velocity 11.69 cm/s MV Lateral e' Velocity 23.25 cm/s >=10.00 MV E/e' (Lateral) 3.84 <=8.00 MV e' Average 15.44 MV E/e' (Average) 7.77 <=14.00 Tricuspid Valve Name Value Normal TV Regurgitation Doppler TR Peak Velocity 2.45 m/s <=2.80 TR Peak Gradient 24 mmHg Estimated PAP/RSVP RA Pressure 15 mmHg <=5 PA Systolic Pressure 39 mmHg <40 PA Mean Pressure (OK Velocity) 32 mmHg TV Diastolic Function TV E Peak Velocity 0.77 m/s TV A Peak Velocity 0.56 m/s TV E/A 1.36 0.80-2.00 TV Decel Time 148 ms >=120 TV Annular TDI TV Lateral Crissy s' Velocity 11.9 cm/s 9.5-18.7 TV Lateral Crissy e' Velocity 13.6 cm/s <7.8 TV E/e' 5.64 2.00-6.00 Aorta Name Value Normal Ascending Aorta Sinus of Valsalva Diameter 3.0 cm 2.7-3.3 Sinus of Valsalva Index 1.86 cm/m2 1.60-2.00 Prox Asc Ao Diameter 2.5 cm 2.3-3.1 Prox Asc Ao Diameter Index 1.52 cm/m2 1.30-1.90 Thoracic Aorta Ao Arch Diameter 2.5 cm Desc Ao Peak Velocity 1.45 m/s Desc Ao Peak Gradient 8 mmHg Venous Name Value Normal IVC/SVC IVC Diameter (Insp 2D) 2.0 cm IVC Diameter (Exp 2D) 2.6 cm <=2.1 IVC Diameter Percent Change (2D) 25 % >=50 Aortic Valve Name Value Normal AV Doppler AV Peak Velocity 1.61 m/s <2.00 AV Peak Gradient 10 mmHg AV Area (Cont Eq Eleuterio) 1.9 cm2 AV Area Index (Cont Eq Eleuterio) 1.18 cm2/m2 AV V1/V2 Ratio 0.67 AV Regurgitation 2D LVOT Area 2.9 cm2 Ventricles Name Value Normal LV Dimensions 2D/MM IVS Diastolic Thickness (2D) 0.9 cm 0.6-0.9 LVID Diastole (2D) 4.7 cm 3.3-5.1 LVIW Diastolic Thickness (2D) 0.9 cm 0.6-0.9 LVID Systole (2D) 3.5 cm 2.2-3.5 LVOT Diameter 1.9 cm LV Mass (2D Cubed) 147.24 g 67.00-162.00 LV Mass Index (2D Cubed) 0.01 g/cm2 0.00-0.01 Relative Wall Thickness (2D) 0.39 LV Fractional Shortening/Ejection Fraction 2D/MM LV Fractional Shortening (2D) 25 % 27-45 LV Diastolic Volume (4C MOD) 93 ml LV Diastolic Volume (2C MOD) 118 ml LV Diastolic Volume (BP MOD) 104 ml 46-106 LV Diastolic Volume Index (BP MOD) 64.01 ml/m2 29.00-61.00 LV Systolic Volume (BP MOD) 44 ml 14-42 LV Systolic Volume Index (BP MOD) 26.95 ml/m2 8.00-24.00 LV EF (BP MOD) 60 % 58-69 LV SV (BP MOD) 60.24 ml RV Dimensions 2D/MM RV Basal Diastolic Dimension 5.1 cm 2.5-4.1 RV Mid-Cavity Diastolic Dimension 4.5 cm 1.9-3.5 RV Diastolic Area (4C) 32.7 cm2 8.0-20.0 RV Systolic Area (4C) 18.1 cm2 3.0-11.0 TAPSE 1.5 cm >=1.7 RV Fractional Shortening 2D RV FAC (4C) 44 % >=35 Atria Name Value Normal LA Dimensions LA Area (4C) 25.7 cm2 LA Length (4C) 6.0 cm LA Area (2C) 23.3 cm2 LA Length (2C) 5.8 cm LA Volume (4C A-L) 93.00 ml LA Volume (2C A-L) 79.26 ml LA Volume (BP A-L) 88 ml 22-52 LA Volume Index (BP A-L) 53.87 ml/m2 <=34.00 RA Dimensions RA Area (4C) 29.2 cm2 <=18.0 Left Ventricle Mildly dilated left ventricle for BSA. Normal LV systolic function with no regional wall motion abnormalities. Ejection fraction as calculated by Biplane Simpsons method is 55-60%. Global endocardial peak longitudinal strain is -20%. LV septal flattening in diastole consistent with right heart volume overload. No left ventricular hypertrophy. Heavily trabeculated left ventricle consistent with LV non-compaction. Right Ventricle Moderately dilated right ventricle with normal systolic function. Device lead noted in right ventricle. Aortic Valve Normal, tricuspid aortic valve. Pulmonic Valve Structurally unremarkable pulmonic valve with no significant flow abnormalities. Estimated pulmonary arterial mean pressure is elevated (32 mmHg). Mitral Valve Structurally normal mitral valve. Moderate mitral regurgitation. Tricuspid Valve Malcoaptation of the tricuspid valve leaflets secondary to annular dilation. Severe tricuspid regurgitation with hepatic vein systolic flow reversal. Mildly elevated pulmonary artery pressures, estimated PASP is 39 mmHg. Final Signed by:DO Lynn Jason D Signed (Electronic Signature):02/06/2023 8:57 a Social History Social History Type Response Smoking Status Never smoked cigaret petra Sex Female Implantable Device List Procedure Provider Procedure Date Device Type Site Unknown Unknown 03/16/20 Unknown Unknown Device Identifier Serial Number Lot or Batch Number Manufacturing Date Expiration Date Distinct Identification Code MRI Safety Implantable Status Assigning Authority Unknown Unknown [id number] Unknown 02/20/22 Unknown Unknown Active Jamee vaughn Patient Care team information Care Team Personnel Name: MD Rodgers Peter H Position: Physician Member Role: Lifetime Relationship Address: Address: [address] [place] [address] Name: DO Fortune Kristen M Position: Physician - Family Med Member Role: Primary Care Provider Address: Address: [address] [facility] [address] [place] [address] [place] Name: RYAN Bergman Stacey L Position: Nurse Pract - Cardiology Member Role: Lifetime Relationship Address: Address: [address] [facility] [address] [place], [place] [address] [place] Name: MD Bhatt Jansie Position: Physician - Anesthesiologist Member Role: Lifetime Relationship Address: Address: [address] [place] [address] [place] Care Team Related Persons Name: REGINA LARRY Name: RACHEL DAVIES
--- OUTSIDE RECORDS SUMMARY | 2023-04-14 19:37 | External Medical Summary | Continuity of Care Document ---
Author Name Unknown Organization [address] [place] [address] [place] [address] [address] [place] [id number] Care Team Providers Care Electronic Installer Name Role Phone Chiara Fortune Primary Care Physician [phone] [facility] [id number] Date(s): 04/08/23 - 04/08/[address] [place] [address] [place] [address] [address] [place] [phone] Discharge Disposition: Home or Self Care Attending [...] 30 tab, Refills: 3, PRN ONLY, Pharmacy: [id number] Start Date: 12/20/22 Status: Ordered Metoprolol Succinate ER 25 mg oral tablet, extended release Start: 02/09/23 12:15:00 EDT, See Instructions, Disp# 180 tab, Refills: 3, Take 1.5 tablets by mouth every evening (37.5 mg PO qPM), Pharmacy: [id number] Start Date: 02/09/23 Status: [...] Procedure Date Related Diagnosis Body Site Status DELIVERY ONLY 04/10/23 Co mpleted Shave biopsy 1 09/15/20 Completed Cardioversion 2 10/01/19 Completed Pacemaker catheter, device 05/2019 Completed D&C - Dilatation and curettage 12/21/17 Completed 12/11/17 Completed [place] tooth extraction 2007 C ompleted uterine septum removal Co mpleted 1pelvic abdomen 2Underlying rhythm Afib with V Pacing Attempted CV with 200 joules x3 in sync biphasic mode without taoist of NSR Procedure aborted after three attempts Results Laboratory List Name Date Blood Type/Antibody Screen (for possible transfusion) (TYPE AND SCREEN) 04/08/23 Complete Blood Count (CBC) 04/08/23 Treponemal Ab Screen (TREPONEMAL AB SCRE EN) 04/08/23 Most recent to oldest [Reference Range]: 1 ABO/Rh O POSITIVE *Unknown* (04/08/23 12:23 PM) Antibody Scr NEGATIVE *Unknown* (04/08/23 12:23 PM) Expires at 0600AM on 04/11/2023 *Unknown* (04/08/23 12:23 PM) # Units 2 (04/08/23 12:23 PM) R Number NRQ *Unknown* (04/08/23 12:23 PM) Treponemal Ab Screen [NR] NONREACTIVE *Unknown* (04/08/23 12:23 PM) MPV [9.0-12.2 fL] 12.3 fL *HI* (04/08/23 12:23 PM) RDW [11.5-14.2 %] 15.3 % *HI* (04/08/23 12:23 PM) B Comments Second specimen for ABRH confirmation requested from: Powerchart message 04/08/23 [id number] *Unknown* (04/08/23 12:23 PM) Component RED CELLS *Unknown* (04/08/23 12:23 PM) Hct [35-44 %] 38.0 % (04/08/23 12:23 PM) Hgb [11.7-15.0 g/dL] 12.5 g/dL (04/08/23 12:23 PM) MCH [28-33 pg] 31.4 pg (04/08/23 12:23 PM) MCHC [32-36 g/dL] 32.9 g/dL (04/08/23 12:23 PM) MCV [81-96 fL] 95.5 fL (04/08/23 12:23 PM) Plts [150-350 K/uL] 211 K/uL (04/08/23 12:23 PM) RBC [3.90-5.00 M/uL] 3.98 M/uL (04/08/23 12:23 PM) WBC [4.0-10.4 K/uL] 11.81 K/uL *HI* (04/08/23 12:23 PM) Social History Social History Type Response Smoking Status Never smoked cigaret petra Sex Female Implantable Device List Procedure Provider Procedure Date Device Type Site Unknown Unknown 03/16/20 Unknown Unknown Device Identifier Serial Number Lot or Batch Number Manufacturing Date Expiration Date Distinct Identification Code MRI Safety Implantable Status Assigning Authority Unknown Unknown [id number] Unknown 02/20/22 Unknown Unknown Active Unk nown Patient Care team information Care Team Personnel Name: MD Wendi, Maurilio Position: Resident Member Role: Lifetime Relationship Address: Address: [address] [place] [address] [place] Name: MD Vishal, Vipin Rodríguez Position: Physician Member Role: Lifetime Relationship Address: Address: [address] [place] [address] [place] Name: Murtaza Grubbs Kimberly Position: Pharmacist BCMA Member Role: Pharmacy - Lifetime Address: Address: [address] [address] [place] Name: DO Fortune Kristen M Position: Physician - Family Med Member Role: Primary Care Provider Address: Address: [address] [place] [address] [place] Name: RYAN Bergman Stacey L Position: Nurse Pract - Cardiology Member Role: Lifetime Relationship Address: Address: [address] [place] [address] [place] Name: MD Bhatt Jansie Position: Physician - Anesthesiologist Member Role: Lifetime Relationship Address: Address: [address] [place] [address] [place] Name: MD Farr Sonia J Position: Physician - Anesthesiologist Member Role: Lifetime Relationship Address: Address: [address] [place] [address] [place] Care Team Related Persons Name: DIONTE LARRY Address: home [address] [place], [place] [phone] Name: REGINA LARRY Name: RACHEL DAVIES
--- OUTSIDE RECORDS SUMMARY | 2023-04-14 19:37 | External Medical Summary | Continuity of Care Document ---
Author Name Unknown Organization [place] [address] [address] Address [address] [facility] [address] [place] [id number] Care Team Providers Care Computational Scientist Name Role Phone Chiara Fortune Primary Care Physician [phone] Encounter [facility] [id number] Date(s): 02/26/23 - 02/26/23 [facility] [address] [facility] [address] [place] [address], [address] [place] [address] [phone] Encounter Diagnosis (Discharge Diagnosis) - 02/26/23 Discharge Disposition: Home or Self Care Attending Physician: MD Kathryn, Afia Sheehan Allergies, Adverse Reactions, Alerts No Known Allergies [...] Daily, Disp# 30 tab, Refills: 3, Pharmacy: [id number] Start Date: 12/20/22 Status: Ordered Metoprolol Succinate ER 25 mg oral tablet, extended release Start: 02/09/23 12:15:00 EDT, See Instructions, Disp# 180 tab, Refills: 3, Take 1.5 tablets by mouth every evening (37.5 mg PO qPM), Pharmacy: [id number] Start Date: 02/09/23 [...] Diagnosis Diagnosis Type Effective Dates Health Status Clini cathleen Service Informant Discharge Diagnosis 02/26/23 Non-Specified Procedures Procedure Date Related Diagnosis Body Site Status Shave biopsy 1 09/15/20 Completed Cardioversion 2 10/01/19 Completed Pacemaker catheter, device 05/2019 Completed D&C - Dilatation and curettage 12/21/17 Completed 12/11/17 Completed [place] tooth extraction 2007 C ompleted uterine septum removal Co mpleted 1pelvic abdomen 2Underlying rhythm Afib with V Pacing Attempted CV with 200 joules x3 in sync biphasic mode without religion of NSR Procedure aborted after three attempts Social History Social History Type Response Smoking Status Never smoked cigaret petra Sex Female Implantable Device List Procedure Provider Procedure Date Device Type Site Unknown Unknown 03/16/20 Unknown Unknown Device Identifier Serial Number Lot or Batch Number Manufacturing Date Expiration Date Distinct Identification Code MRI Safety Implantable Status Assigning Authority Unknown Unknown [id number] Unknown 02/20/22 Unknown Unknown Active Unk nown Patient Care team information Care Team Personnel Name: MD Vishal, Vipin Rodríguez Position: Physician Member Role: Lifetime Relationship Address: Address: [address] [place] [address] [place] Name: DO Fortune Kristen M Position: Physician - Family Med Member Role: Primary Care Provider Address: Address: [address] [place] [address] [place] Name: RYAN Bergman Stacey L Position: Nurse Pract - Cardiology Member Role: Lifetime Relationship Address: Address: [address] [place] [address] [place] Name: MD Bhatt Jansie Position: Physician - Anesthesiologist Member Role: Lifetime Relationship Address: Address: [address] [place] [address] [place] Care Team Related Persons Name: REGINA LARRY Name: RACHEL DAVIES
--- OUTSIDE RECORDS SUMMARY | 2023-04-14 19:37 | External Medical Summary | Continuity of Care Document ---
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 Chronic atrial fibrillation 6. Genetic testing with multiple genes of undetermined significance but a concern forLAMINdisease She actually looks well. She appears well-perfused. She does not have any significant shortness of breath with the exception of walking upstairs. She notes she feels significantly better compared to last November when she hadworsening lower extremity edema and VELASQUEZ. As you remember we did increase her heart rate at that pointgiven the fact that her cardiac output is fixed as she ispacemaker dependent. It would appear with a higher heart rate of 80 bpm we have been able to increase her cardiac output and improve her perfusion. She has not needed any doses of diuretics since the summer. Her lower extremity edema has improved. She remains on 37 and half milligrams of Toprol and was intolerant of higher doses due to fatigue and lightheadedness. She has a planned scheduled for April 10. She is being closely followed by maternal- medicine with twice weekly testing due to the baby being small. She continues to be followed by adult congenital heart diseaseand the cardio OB team. She notes she was having some emotional stress around this . I discussed with her the first time around she did not realize how sick she was and this time around she had close monitoring and support in order to get her through this as safely as possible. We discussed that the reason she is delivering at [facility] is that everything that might be necessary for her or the baby is available to keep them both safe. I will see her in 3 months time. I would repeat her echo 3 months after delivery to reassess her right heart. She inquired with regards to whether we should adjust her pacer settings after she delivers and we will have to determine how she feels. Additionally, when she is stable and feeling welland is3 to 6 months out from her delivery, I would have her see the heart failure team or someone who specializes in cardio genetics. I discussed with her that if she has any issues in the interim to let us know. She remains on twice daily dosing of Lovenox given her history of a prior stroke and atrial fibrillation. This is already been scheduled to be held 24 hours prior to her . Immunizations Given and Recorded Vaccine Date Status [...] 30 tab, Refills: 3, PRN ONLY, Pharmacy: [id number] Start Date: 12/20/22 Status: Ordered Metoprolol Succinate ER 25 mg oral tablet, extended release Start: 02/09/23 12:15:00 EDT, See Instructions, Disp# 180 tab, Refills: 3, Take 1.5 tablets by mouth every evening (37.5 mg PO qPM), Pharmacy: [id number] Start Date: 02/09/23 [...] Effective Dates Health Status Clinical Service Informant Left ventricular non-compaction cardiomyopathy Discharge Diagnosis 03/22/23 Paroxysmal atrial fibrillation Discharge Diagnosis 03/22/23 Cardiomyopathy Discharge Diagnosis 03/22/23 Complete heart block Discharge Diagnosis 03/22/23 History of TIA (transient ischemic attack) Discharge Diagnosis 03/22/23 Procedures Procedure Date Related Diagnosis Body Site Status Shave biopsy 1 09/15/20 Completed Cardioversion 2 10/01/19 Completed Pacemaker catheter, device 05/2019 Completed D&C - Dilatation and curettage 12/21/17 Completed 12/11/17 Completed [place] tooth extraction 2007 C ompleted uterine septum [...] Safety Implantable Status Assigning Authority Unknown Unknown [id number] Unknown 02/20/22 Unknown Unknown Active Unk nown Cardiology Outpatient Note * DO Lynn Jason D: PERFORM Event Display: Cardiology Outpt Note Authored Date: [id number] Primary Care Provider DO Fortune Kristen M Chief Complaint 3 month f/u History of Present Illness She is feeling well. She denies any shortness of breath on the flat. She does have shortness ofbreath climbing stairs. She denies any orthopnea. She does note she is having insomnia associated with . With compression stockings her lower extremity edema is improved. She has notneeded any diuretics. She is unaware of any palpitations or fluttering. She denies any orthostatic symptoms or falls. She notes her appetites been very good and she denies significant early satiety. Review of Systems PAST MEDICAL HISTORY: 1. Accelerated hypertension in the third trimester of her first . 2. Cardiac MRI concerning for ventricular noncompaction (preserved LV function), although her right ventricle is markedly dilated with severe tricuspid regurgitation of unclear etiology. 3. 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 8. Significant anemia secondary to MANAGER [employer]ATION[employer] bleeding and secondary iron deficiency. 9. 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 She is in no acute distress. She is awell-appearing female, looks her stated age. She did not appear short of breath talking in sentences. HEENT: 2+ carotid upstrokes, no evidence of carotid bruits. Jugular venous pressure appearednormal. Sclerae was anicteric. Hearing is normal. Lungs: Clear to auscultation bilaterally,no rales, rhonchi or wheezing. Heart: Regular rate and rhythm. No appreciable murmurs or rubs. Extremities: No clubbing or cyanosiswithtrace to mild LE edema with compression stockingsPsychiatric: Affect appeared appropriate. Diagnostic Results Finalized by Dr. Sai Lynn MD on 03/20/2023 Summary 1. Normal LV size and systolic function with no regional wall motion abnormalities. 2. Ejection fraction as calculated by Biplane Simpsons method is 55-60%. 3. Global endocardial peak longitudinal strain is -19%. 4. LV septal flattening in diastole, consistent with right heart volume overload. 5. No left ventricular hypertrophy. 6. Heavily trabeculated left ventricle consistent with LV non-compaction. 7. Moderately dilated right ventricle with normal systolic function. 8. Right ventricular fractional area change is normal, 42 %. 9. Severely dilated left atrium. 10. Markedly dilated right atrium. 11. Mild to moderate mitral regurgitation. 12. Malcoaptation of the tricuspid valve leaflets secondary to annular dilation. 13. Severe tricuspid regurgitation with hepatic vein systolic flow reversal. 14. Mildly to moderately elevated pulmonary artery pressures, estimated PASP is 44 mmHg. 15. Estimated pulmonary arterial mean pressure is elevated (32 mmHg). 16. Compared to the previous study performed 02/06/2023, there is no significant change. Assessment/Plan 1.Cardiomyopathy 2.Complete heart block 3.History of TIA (transient ischemic attack) 4.Left ventricular non-compaction cardiomyopathy 5. Chronic atrial fibrillation 6. Genetic testing with multiple genes of undetermined significance but a concern forLAMINdisease She actually looks well. She appears well-perfused. She does not have any significant shortnessof breath with the exception of walking upstairs. She notes she feels significantly better compared to last November when she hadworsening lower extremity edema and VELASQUEZ. As you remember we did increase her heart rate at that pointgiven the fact that her cardiac output is fixed as she ispacemaker dependent. It would appear with a higher heart rate of 80 bpm we have been able to increase her cardiac output and improve her perfusion. She has not needed any doses of diuretics since the summer. Her lower extremity edema has improved. She remains on 37 and half milligrams of Toprol and was intolerant of higher doses due to fatigue and lightheadedness. She has a planned scheduled for April 10. She is being closely followed by maternal- medicine with twice weekly testing due to the baby being small. She continues to be followedby adult congenital heart diseaseand the cardio OB team. She notes she was having some emotional stress around this . I discussed with her the first time around she did not realize how sick she was and this time around she had close monitoring and support in order to get her through this as safely as possible. We discussed that thereason she is delivering at [facility] is that everything that might be necessary for her or the baby is available to keep them both safe. I will see her in 3 months time. I would repeat her echo 3 months after delivery to reassess her right heart. She inquired with regards to whether we should adjust her pacer settings after she delivers and we will have to determine how she feels. Additionally, when she is stable and feeling we lland is3 to 6 months out from her delivery, I would have her see the heart failure team or someone who specializes in cardio genetics. I discussed with her that if she has any issues in the interim to let us know. She remains on twice daily dosing of Lovenox given her history of a prior stroke and atrial fibrillation. This is already been scheduled to be held 24 hours prior to her . Problem List/Past Medical History Ongoing Advanced maternal [...] (05/2019)D&C - Dilatation and curettage (12/21/2017) (12/11/2017) [place] tooth extraction (2007)uterine septum removal Medications acetaminophen, [...] Status Family Member(s) Electronic Signature on File CC: Chiara Fortune DO [address] [address] CC: Candy García M.D. [address] [facility] [address] [facility] [id number] CC: Mirna Vega [address] [facility] [address] 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 [facility] [place] [address] [facility], [address] [place] [address] JDF Patient Care team information Care Team Personnel Name: MD Vishal, Vipin Rodríguez Position: Physician Member Role: Lifetime Relationship Address: Address: [address] [place] [address] [place] Name: DO Fortune Kristen M Position: Physician - Family Med Member Role: Primary Care Provider Address: Address: [address] [place] [address] [place] Name: RYAN Bergman Stacey L Position: Nurse Pract - Cardiology Member Role: Lifetime Relationship Address: Address: [address] [place] [phone] [place] Name: MD Bhatt Jansie Position: Physician - Anesthesiologist Member Role: Lifetime Relationship Address: Address: [address] [place] [address] [place] Care Team Related Persons Name: REGINA LARRY Name: RACHEL DAVIES
--- OUTSIDE RECORDS SUMMARY | 2023-04-14 19:37 | External Medical Summary | Continuity of Care Document ---
Author Name Unknown Organization [place] [address] [address] Address [address] [place] [phone] Care Team Providers Care Well Services Operator Name Role Phone Chiara Fortune Primary Care Physician [phone] Encounter [facility] [id number] Date(s): 03/19/23 - 03/19/23 [facility] [address], [address] [place] [address] [phone] Discharge Disposition: Home or Self Care Attending [...] Daily, Disp# 30 tab, Refills: 3, Pharmacy: [id number] Start Date: 12/20/22 Status: Ordered Metoprolol Succinate ER 25 mg oral tablet, extended release Start: 02/09/23 12:15:00 EDT, See Instructions, Disp# 180 tab, Refills: 3, Take 1.5 tablets by mouth every evening (37.5 mg PO qPM), Pharmacy: [id number] Start Date: 02/09/23 [...] Dilatation and curettage 12/21/17 Completed 12/11/17 Completed [place] tooth extraction 2007 C ompleted uterine septum removal Co mpleted 1pelvic abdomen 2Underlying rhythm Afib with V Pacing Attempted CV with 200 joules x3 in sync biphasic mode without confucianist of NSR Procedure aborted after three attempts Results Radiology Reports * Exam Date Time Procedure Performing Provider Status 03/19/23 1:47 PM Echo TransTHORacic TTE Complete Liza Butcher; Final Notes: (Echo TransTHORacic TTE Complete) Reason For Exam: cardiomyopathy Echo TransTHORacic TTE Complete Report Signatures Finalized by Dr. Sai Lynn MD on 03/20/2023 06:01 PM [place] Act 112: No-No further action needed Summary 1. Normal LV size and systolic [...] performed 02/06/2023, there is no significant change. Patient Info Name: CINDY LARRY Age: 37 years : 1985 Gender: Female Ht: 160 cm Wt: 61 kg BSA: 1.66 m2 HR: 86 bpm BP: 126 / 76 mmHg Heart Rhythm: Sinus Rhythm Technical Quality: Excellent Exam Date: 03/19/2023 1:15 PM Exam Location: [facility] Patient Status: Outpatient Staff Ordering Physician: Candy García Laborer Road: Liza Alejandra RDCS, RVT Attending Physician: Candy García (acai) Study Info CPT 35115 - Indications I429 - Cardiomyopathy, unspecified Procedure(s) * A complete two-dimensional, color flow and Doppler transthoracic echocardiogram was performed. Exam Type: Cardiac Basic Left Ventricle Normal LV size and systolic function with no regional wall motion abnormalities. Ejection fraction as calculated by Biplane Simpsons method is 55-60%. Global endocardial peak longitudinal strain is -19%. LV septal flattening in diastole, consistent with right heart volume overload. No left ventricular hypertrophy. Heavily trabeculated left ventricle consistent with LV non-compaction. Right Ventricle Moderately dilated right ventricle with normal systolic function. TAPSE is 1.6 cm. Right ventricular fractional area change is normal, 42 %. Device lead noted in right ventricle. Left Atrium Severely dilated left atrium. Right Atrium Markedly dilated right atrium. Device lead noted in RA. Atrial Septum Appears intact (negative bubble study performed 01/12/2019). Aortic Valve Normal, tricuspid aortic valve. Pulmonic Valve Structurally unremarkable pulmonic valve with no significant flow abnormalities. Estimated pulmonary arterial mean pressure is elevated (32 mmHg). Mitral Valve Structurally normal mitral valve. Mild to moderate mitral regurgitation. Tricuspid Valve Malcoaptation of the tricuspid valve leaflets secondary to annular dilation. Severe tricuspid regurgitation with hepatic vein systolic flow reversal. Mildly to moderately elevated pulmonary artery pressures, estimated PASP is 44 mmHg. Hepatic Veins Dilated hepatic veins. Hepatic vein systolic flow reversal, secondary to severe tricuspid valve regurgitation. Pericardium/Pleural No pericardial effusion. Inferior Vena Cava Dilated IVC with reduced (less than 50%) collapse. Estimated right atrial pressure is 15 mmHg. Aorta Normal aortic root, ascending aorta and aortic arch. Left Ventricular Outflow Tract Name Value Normal LVOT 2D LVOT Diameter 2.1 cm LVOT Doppler LVOT Peak Velocity 0.98 m/s LVOT Peak Gradient 4 mmHg LVOT Mean Gradient 2 mmHg LVOT VTI 16.01 cm LVOT Stroke Volume 54.93 ml LVOT Stroke Volume Index 0.03 l/m2 LVOT Cardiac Output 4.72 l/min LVOT Cardiac Index 2.85 L/min/m2 Pulmonic Valve Name Value Normal PV 2D RVOT Diameter (2D) 2.1 cm 1.7-2.7 RVOT Doppler RVOT Peak Velocity 0.60 m/s PV Doppler PV Peak Velocity 0.81 m/s PV Regurgitation Doppler NC Peak Velocity 2.05 m/s Mitral Valve Name Value Normal MV Doppler MV PHT 64 ms MV Diastolic Function MV E Peak Velocity 0.78 m/s <=0.50 MV Decel Time 222 ms MV Annular TDI MV Septal s' Velocity 6.81 cm/s MV Septal e' Velocity 7.54 cm/s >=7.00 MV E/e' (Septal) 10.4 <=8.0 MV Lateral s' Velocity 13.55 cm/s MV Lateral e' Velocity 20.02 cm/s >=10.00 MV E/e' (Lateral) 3.90 <=8.00 MV e' Average 13.78 MV E/e' (Average) 7.13 <=14.00 Tricuspid Valve Name Value Normal TV Regurgitation Doppler TR Peak Velocity 2.70 m/s <=2.80 TR Peak Gradient 21 mmHg Estimated PAP/RSVP RA Pressure 15 mmHg <=5 PA Systolic Pressure 44 mmHg <40 PA Mean Pressure (NC Velocity) 32 mmHg TV Diastolic Function TV E Peak Velocity 0.76 m/s TV A Peak Velocity 0.49 m/s TV E/A 1.55 0.80-2.00 TV Decel Time 137 ms >=120 TV Annular TDI TV Lateral Crissy s' Velocity 11.6 cm/s 9.5-18.7 TV Lateral Crissy e' Velocity 14.8 cm/s <7.8 TV E/e' 5.15 2.00-6.00 Aorta Name Value Normal Ascending Aorta Sinus of Valsalva Diameter 3.0 cm 2.7-3.3 Sinus of Valsalva Index 1.83 cm/m2 1.60-2.00 Prox Asc Ao Diameter 2.8 cm 2.3-3.1 Prox Asc Ao Diameter Index 1.72 cm/m2 1.30-1.90 Thoracic Aorta Ao Arch Diameter 2.5 cm Desc Ao Peak Velocity 1.38 m/s Desc Ao Peak Gradient 8 mmHg Venous Name Value Normal IVC/SVC IVC Diameter (Insp 2D) 1.3 cm IVC Diameter (Exp 2D) 2.3 cm <=2.1 IVC Diameter Percent Change (2D) 43 % >=50 Aortic Valve Name Value Normal AV Doppler AV Peak Velocity 1.48 m/s <2.00 AV Peak Gradient 9 mmHg AV Area (Cont Eq Eleuterio) 2.3 cm2 AV Area Index (Cont Eq Eleuterio) 1.36 cm2/m2 AV V1/V2 Ratio 0.66 AV Regurgitation 2D LVOT Area 3.4 cm2 Ventricles Name Value Normal LV Dimensions 2D/MM IVS Diastolic Thickness (2D) 0.9 cm 0.6-0.9 LVID Diastole (2D) 5.1 cm 3.3-5.1 LVIW Diastolic Thickness (2D) 0.9 cm 0.6-0.9 LVID Systole (2D) 3.9 cm 2.2-3.5 LVOT Diameter 2.1 cm LV Mass (2D Cubed) 170.56 g 67.00-162.00 LV Mass Index (2D Cubed) 0.01 g/cm2 0.00-0.01 Relative Wall Thickness (2D) 0.36 LV Fractional Shortening/Ejection Fraction 2D/MM LV Fractional Shortening (2D) 24 % 27-45 LV Diastolic Volume (4C MOD) 84 ml LV Diastolic Volume (2C MOD) 100 ml LV Diastolic Volume (BP MOD) 90 ml 46-106 LV Diastolic Volume Index (BP MOD) 54.15 ml/m2 29.00-61.00 LV Systolic Volume (BP MOD) 42 ml 14-42 LV Systolic Volume Index (BP MOD) 25.09 ml/m2 8.00-24.00 LV EF (BP MOD) 55 % 58-69 LV SV (BP MOD) 48.19 ml LV End Diastolic Volume (BP A-L) 91.89 ml LV End Systolic Volume (BP A-L) 37.21 ml LV EF (BP A-L) 60 % RV Dimensions 2D/MM RV Basal Diastolic Dimension 5.0 cm 2.5-4.1 RV Mid-Cavity Diastolic Dimension 4.1 cm 1.9-3.5 RV Diastolic Area (4C) 29.7 cm2 8.0-20.0 RV Systolic Area (4C) 17.3 cm2 3.0-11.0 TAPSE 1.6 cm >=1.7 RV Fractional Shortening 2D RV FAC (4C) 42 % >=35 Atria Name Value Normal LA Dimensions LA Area (4C) 24.5 cm2 LA Length (4C) 6.0 cm LA Area (2C) 25.0 cm2 LA Length (2C) 5.9 cm LA Volume (4C A-L) 84.53 ml LA Volume (2C A-L) 90.11 ml LA Volume (BP A-L) 88 ml 22-52 LA Volume Index (BP A-L) 53.23 ml/m2 <=34.00 RA Dimensions RA Area (4C) 28.1 cm2 <=18.0 Final Signed by:DO Lynn Jason D Signed (Electronic Signature):03/19/2023 1:15 p Social History Social History Type Response Smoking Status Never smoked cigaret petra Sex Female Implantable Device List Procedure Provider Procedure Date Device Type Site Unknown Unknown 03/16/20 Unknown Unknown Device Identifier Serial Number Lot or Batch Number Manufacturing Date Expiration Date Distinct Identification Code MRI Safety Implantable Status Assigning Authority Unknown Unknown [id number] Unknown 02/20/22 Unknown Unknown Active Unk nown Patient Care team information Care Team Personnel Name: MD Vishal, Vipin Rodríguez Position: Physician Member Role: Lifetime Relationship Address: Address: [address] [place] [id number] [place] Name: DO Fortune Kristen M Position: Physician - Family Med Member Role: Primary Care Provider Address: Address: [address] [place] [address] [place] Name: RYAN Bergman Stacey L Position: Nurse Pract - Cardiology Member Role: Lifetime Relationship Address: Address: [address] [place] [address] Name: MD Bhatt Jansie Position: Physician - Anesthesiologist Member Role: Lifetime Relationship Address: Address: [address] [place] [address] Care Team Related Persons Name: REGINA LARRY Name: RACHEL DAVIES
--- OUTSIDE RECORDS SUMMARY | 2023-04-14 19:37 | External Medical Summary | Continuity of Care Document ---
Author Name Unknown Organization [facility] [address] Address [address] [place], [place] [id number] Care Team Providers Care Leaf Stripper Name Role Phone Chiara Fortune Primary Care Physician [phone] Encounter [facility] [id number] Date(s): 01/16/23 - 01/16/23 [facility] [address] [facility] [address] [facility] [address] [facility] [address] [place], [place] [phone] Encounter Diagnosis Encounter for general adult medical examination without abnormal findings(Final) - Body mass index [BMI] 20.0-20.9, adult(Final) - 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) - Presence of cardiac pacemaker(Final) - Discharge Disposition: Home or Self Care Attending Physician: DO Fortune Kristen M Referring Physician: DO Fortune Kristen M Allergies, Adverse Reactions, Alerts No Known Allergies Immunizations Given and Recorded Vaccine Date Status Refusal Reason SARS-CoV-2 mRNA-1273 (6y+ bivalent) 02/06/22 Recor ded [...] Daily, Disp# 30 tab, Refills: 3, Pharmacy: [id number] Start Date: 12/20/22 Status: Ordered Metoprolol Succinate ER 25 mg oral tablet, extended release Start: 12/05/22 11:12:00 EDT, 1 tab, PO, Daily, Disp# 30 tab, Refills: 11, Pharmacy: [id number] Start Date: 12/05/22 Status: Ordered 1 Plus 1 oral tablet [...] Dilatation and curettage 12/21/17 Completed 12/11/17 Completed [place] tooth extraction 2007 C ompleted uterine septum removal Co mpleted 1pelvic abdomen 2Underlying rhythm Afib with V Pacing Attempted CV with 200 joules x3 in sync biphasic mode without yarsanism of NSR Procedure aborted after three attempts Results Laboratory List Name Date Occult Blood, Stool, Diagnostic (STOOL O CCULT BLOOD DIAGNOSTIC) 01/16/23 Most recent to oldest [Reference Range]: 1 Occult Bld, Stool, Diagnostic [NEG] NEGA TIVE 1 *Unknown* (01/16/23 9:11 AM) 1Result Comment: Testing Performed By: Dept of Pathology [facility] [address], [address], [place] [address] Social History Social History Type Response Smoking Status Never smoked cigaret petra Sex Female Implantable Device List Procedure Provider Procedure Date Device Type Site Unknown Unknown 03/16/20 Unknown Unknown Device Identifier Serial Number Lot or Batch Number Manufacturing Date Expiration Date Distinct Identification Code MRI Safety Implantable Status Assigning Authority Unknown Unknown [id number] Unknown 02/20/22 Unknown Unknown Active Unk antionen Patient Care team information Care Team Personnel Name: DO Fortune Kristen M Position: Physician - Family Med Member Role: Primary Care Provider Address: Address: [address] [place] [address] [address] [place] [address] [place] Name: RYAN Bergman Stacey L Position: Nurse Pract - Cardiology Member Role: Lifetime Relationship Address: Address: [address] [place] [address] [place] Name: MD Bhatt Jansie Position: Physician - Anesthesiologist Member Role: Lifetime Relationship Address: Address: [address] [place] [address] Care Team Related Persons Name: REGINA LARRY Name: RACHEL DAVIES
--- OUTSIDE RECORDS SUMMARY | 2023-04-14 19:37 | External Medical Summary | Continuity of Care Document ---
Author Name Unknown Organization [facility] [address] Address [address] [facility] [address] [place] [id number] Care Team Providers Care Sap Business [employer] Consultant Name Role Phone Chiara Fortune Primary Care Physician [phone] [id number] Date(s): 03/25/23 - 03/25/23 [facility] [address] [facility] Obstetrics and Gynecology [address] [place] [address], [address] [place] [address] [phone] Encounter Diagnosis 35 weeks gestation of (Discharge Diagnosis) - 03/25/23 Discharge Disposition: Home or [...] q12h, Disp# 180 pen_needle, Refills: 3, Pharmacy: [facility] Start Date: 08/22/22 Stop Date: 08/17/23 Status: Ordered Lasix 20 mg oral tablet Start: 12/20/22 15:11:00 EDT, 0.5 tab, PO, Daily, Disp# 30 tab, Refills: 3, PRN ONLY, Pharmacy: [id number] Start Date: 12/20/22 Status: Ordered Metoprolol Succinate ER 25 mg oral tablet, extended release Start: 02/09/23 12:15:00 EDT, See Instructions, Disp# 180 tab, Refills: 3, Take 1.5 tablets by mouth every evening (37.5 mg PO qPM), Pharmacy: [id number] Start Date: 02/09/23 Status: [...] Literacy Communication Barriers N ever Primary Language Senegalese Problem List Condition Confirmation Course Effective Dates [...] Dates Health Status Cl inical Service Informant 35 weeks gestation of Discharge Diagnosis 03/25/23 Procedures Procedure Date Related Diagnosis Body Site Status Shave biopsy 1 09/15/20 Completed Cardioversion 2 10/01/19 Completed Pacemaker catheter, device 05/2019 Completed D&C - Dilatation and curettage 12/21/17 Completed 12/11/17 Completed [place] tooth extraction 2007 C ompleted uterine septum removal Co mpleted 1pelvic abdomen 2Underlying rhythm Afib with V Pacing Attempted CV with 200 joules x3 in sync biphasic mode without druze of NSR Procedure aborted after three attempts Results Laboratory List Name Date Urine Protein/Glucose POC Outpt 03/25/23 Most recent to oldest [Reference Range]: 1 Glucose Urine Dipstick Ref Range [negati ve] (03/25/23 2:32 PM) Protein Urine Dipstick Ref Range [negati ve] (03/25/23 2:32 PM) U Protein Negative 1 (03/25/23 2:32 PM) U Gluc Negative (03/25/23 2:32 PM) 1Result Comment: Performed at: [facility] Obstetrics and Gynecology, [address] [facility], [address], [place] [address] Vital Signs Most recent to oldest [Reference Range]: 1 Patient Weight 63.4 kg (03/25/23 1:39 PM) Blood Pressure 116/80mmHg (03/25/23 1:39 PM) Cuff Pulse Pressure 36 mmHg (03/25/23 1:39 PM) Social History Social History Type Response Smoking Status Never smoked cigaret petra Sex Female Implantable Device List Procedure Provider Procedure Date Device Type Site Unknown Unknown 03/16/20 Unknown Unknown Device Identifier Serial Number Lot or Batch Number Manufacturing Date Expiration Date Distinct Identification Code MRI Safety Implantable Status Assigning Authority Unknown Unknown [id number] Unknown 02/20/22 Unknown Unknown Active Edink antionen Note * MD Jovani, Tiffanie Witt: VERIFY, PERFORM Event Display: Report Authored Date: [id number] SERVICE(S) PROVIDED: Limited 22049 INDICATIONS: 35 weeks gestation of Z3A.35 Maternal cardiac disease growth restriction AMA Antepartum testing METAL DRESSER: Technique: N/A EVALUATION: Num Of Fetuses: 1 Heart Rate(bpm): 155 Cardiac Activity: Present Presentation: Cephalic Placenta: Posterior Amniotic Fluid GUILLERMO FV: Subjectively within normal limits Largest Pocket(cm) 6.6 GESTATIONAL AGE: LMP: 35w 1d Date: 07/22/22 EVY: 04/28/23 Best: 35w 1d Det. By: LMP (07/22/22) EVY: 04/28/23 -------- ANATOMY: -------- Heart: [place] to left CERVIX UTERUS ADNEXA: Cervix Not adequately visualized IMPRESSION: Single live intrauterine with cardiac activity demonstrated. Normal deepest vertical pocket of amniotic fluid. RECOMMENDATIONS: Continue antepartum testing as currently scheduled. The patient is scheduled for delivery on 04/10/23. Tiffanie Hahn MD Electronically Signed Final Report 03/25/2023 03:08 pm Patient Care team information Care Team Personnel Name: MD Vishal, Vipin Rodríguez Position: Physician Member Role: Lifetime Relationship Address: Address: [address] [place] [address] Name: Murtaza Grubbs Kimberly Position: Pharmacist [facility] Member Role: Pharmacy - Lifetime Address: Address: [facility] [address] [place] [address] [place] Name: DO Fortune Kristen M Position: Physician - Family Med Member Role: Primary Care Provider Address: Address: [address] [place] [address] [place] [address] [place] Name: RYAN Bergman Stacey L Position: Nurse Pract - Cardiology Member Role: Lifetime Relationship Address: Address: [address] [place] [address] [place] Name: MD Bhatt Jansie Position: Physician - Anesthesiologist Member Role: Lifetime Relationship Address: Address: [address] [place] [address] Care Team Related Persons Name: REGINA LARRY Name: RACHEL DAVIES
--- OUTSIDE RECORDS SUMMARY | 2023-04-14 19:37 | External Medical Summary | Continuity of Care Document ---
Author Name Unknown Organization [facility] [address] Address [address] [facility] [address] [place] [id number] Care Team Providers Care Basket Person Name Role Phone Chiara Fortune Primary Care Physician [phone] [id number] Date(s): 04/01/23 - 04/01/23 [facility] [address] [facility] Obstetrics and Gynecology [address] [place] [address], [address] [place] [address] [phone] Encounter Diagnosis HRP (high risk )(Discharge Diagnosis) - 04/01/23 36 weeks gestation of (Discharge Diagnosis) - 04/01/23 Discharge Disposition: Home or Self Care Attending Physician: MD Laureen, Seralexander H Referring Physician: MD Tricia, Phong Gilbert Allergies, [...] 30 tab, Refills: 3, PRN ONLY, Pharmacy: [id number] Start Date: 12/20/22 Status: Ordered Metoprolol Succinate ER 25 mg oral tablet, extended release Start: 02/09/23 12:15:00 EDT, See Instructions, Disp# 180 tab, Refills: 3, Take 1.5 tablets by mouth every evening (37.5 mg PO qPM), Pharmacy: [id number] Start Date: 02/09/23 Status: Ordered 1 Plus 1 oral tablet Start: 11/16/20 8:14:00 EDT, 1 tab, PO, Daily Start Date: 11/16/20 Status: Ordered Vitamin B12 Start: 03/22/23 14:56:00 EST Start Date: 03/22/23 Status: Ordered Vitamin D2 Start: 12/10/18 15:57:00 EDT, 2 gummies, PO, Daily Start Date: 12/10/18 Status: Ordered Mental Status 04/01/23 Barriers to Learning one year None evide nt Mandatory Health Literacy Documentation Yes Health Literacy Communication Barriers N ever Primary Language Congolese Problem List Condition Confirmation Course Effective Dates [...] Dates Health Status Cl inical Service Informant HRP (high risk ) Discharge Diagnosis 04/01/23 Non-Specified 36 weeks gestation of Discharge Diagnosis 04/01/23 Procedures Procedure Date Related Diagnosis Body Site Status Shave biopsy 1 09/15/20 Completed Cardioversion 2 10/01/19 Completed Pacemaker catheter, device 05/2019 Completed D&C - Dilatation and curettage 12/21/17 Completed 12/11/17 Completed [place] tooth extraction 2007 C ompleted uterine septum removal Co mpleted 1pelvic abdomen 2Underlying rhythm Afib with V Pacing Attempted CV with 200 joules x3 in sync biphasic mode without muslim of NSR Procedure aborted after three attempts Vital Signs Most recent to oldest [Reference Range]: 1 Patient Weight 63.8 kg (04/01/23 10:46 AM) Blood Pressure 130/84mmHg (04/01/23 10:46 AM) Social History Social History Type Response Smoking Status Never smoked cigaret petra Sex Female Implantable Device List Procedure Provider Procedure Date Device Type Site Unknown Unknown 03/16/20 Unknown Unknown Device Identifier Serial Number Lot or Batch Number Manufacturing Date Expiration Date Distinct Identification Code MRI Safety Implantable Status Assigning Authority Unknown Unknown [id number] Unknown 02/20/22 Unknown Unknown Active Jamee vaughn Note * MD Laureen, Serdar H: VERIFY, PERFORM Event Display: Report Authored Date: [id number] SERVICE(S) PROVIDED: Limited [id number] INDICATIONS: 36 weeks gestation of Z3A.36 cardiac disease: noncompaction cardiomyopathy, RV dilation, arrhythmia s.p.PM AMA Antepartum testing Previous CS Prev mild polyhydramnios (normal today) BRAKE TESTER: Technique: N/A EVALUATION: Num Of Fetuses: 1 Heart Rate(bpm): 143 Cardiac Activity: Present Presentation: Cephalic Placenta: Posterior Right Lateral Amniotic Fluid GUILLERMO FV: Within normal limits Largest Pocket(cm) 7.2 OB HISTORY: : 3 Term: 1 Thaddeus: 0 SAB: 1 TOP: - Ectopic: - Livin GESTATIONAL AGE: LMP: 36w 1d Date: 07/22/22 EVY: 04/28/23 Best: 36w 1d Det. By: LMP (07/22/22) EVY: 04/28/23 CERVIX UTERUS ADNEXA: Cervix Poorly seen due to late gestational age IMPRESSION: Normal amniotic fluid volume. Flo Garduno MD Electronically Signed Final Report 04/01/2023 11:29 am Patient Care team information Care Team Personnel Name: MD Wendi, Maurilio Position: Resident Member Role: Lifetime Relationship Address: Address: [address] [place] [address] [place] Name: MD Vishal, Vipin Rodríguez Position: Physician Member Role: Lifetime Relationship Address: Address: [address] [place] [address] [place] Name: Murtaza Grubbs Kimberly Position: Pharmacist [facility] Member Role: Pharmacy - Lifetime Address: Address: [address] [address] [place] Name: DO Fortune Kristen M Position: Physician - Family Med Member Role: Primary Care Provider Address: Address: [address] [place] [address] [place] Name: RYAN Bergman Stacey L Position: Nurse Pract - Cardiology Member Role: Lifetime Relationship Address: Address: [address] [place] [address] Name: MD Nova, Sara Position: Physician - Anesthesiologist Member Role: Lifetime Relationship Address: Address: [address] [place] [address] [place] [address] [place] Care Team Related Persons Name: REGINA LARRY Name: RACHEL DAVIES
--- OUTSIDE RECORDS SUMMARY | 2023-04-14 19:37 | External Medical Summary | Continuity of Care Document ---
Author Name Unknown Organization [facility] [address] [place] [address] ED[place] SHELL [id number] Care Team Providers Care Hardware Engineering Manager Name Role Phone Chiara Fortune Primary Care Physician [phone] [id number] Date(s): 03/18/23 - 03/18/23 [facility] [address] [facility] Anesthesia Clinic [address], [address], [address] [place] [address] Encounter Diagnosis (Discharge Diagnosis) - 03/18/23 Discharge Disposition: Home or Self Care Attending Physician: MD Linn Selina N Allergies, Adverse Reactions, Alerts No Known Allergies Immunizations Given and Recorded Vaccine Date Status Refusal Reason tetanus/diphtheria/pertuss, acel (Tdap) 02/07/23 G iven SARS-CoV-2 mRNA-1273 (6y+ bivalent) 02/06/22 Recor ded influenza virus vaccine, inactivated 02/02/21 Clot rded SARS-CoV-2 (COVID-19) mRNA BNT-162b2 vax 1 [...] 2 tab, PO, q12h, Disp# 28, Pharmacy: [id number] Start Date: 03/07/23 Stop Date: 03/14/23 Status: Ordered Lasix 20 mg oral tablet Start: 12/20/22 15:11:00 EDT, 0.5 tab, PO, Daily, Disp# 30 tab, Refills: 3, Pharmacy: [id number] Start Date: 12/20/22 Status: Ordered Metoprolol Succinate ER 25 mg oral tablet, extended release Start: 02/09/23 12:15:00 EDT, See Instructions, Disp# 180 tab, Refills: 3, Take 1.5 tablets by mouth every evening (37.5 mg PO qPM), Pharmacy: [id number] Start Date: 02/09/23 Status: Ordered [...] Literacy Communication Barriers N ever Primary Language Slovak Problem List Condition Confirmation Course Effective Dates [...] Status Clini cathleen Service Informant Discharge Diagnosis 03/18/23 Non-Specified Procedures Procedure Date Related Diagnosis Body Site Status Shave biopsy 1 09/15/20 Completed Cardioversion 2 10/01/19 Completed Pacemaker catheter, device 05/2019 Completed D&C - Dilatation and curettage 12/21/17 Completed 12/11/17 Completed [place] tooth extraction 2007 C ompleted uterine septum removal Co mpleted 1pelvic abdomen 2Underlying rhythm Afib with V Pacing Attempted CV with 200 joules x3 in sync biphasic mode without latter-day of NSR Procedure aborted after three attempts Vital Signs Most recent to oldest [Reference Range]: 1 Height 164 cm (03/18/23 1:26 PM) Patient Weight 63 kg (03/18/23 1:26 PM) Body Mass Index 23.42 kg/m2 (03/18/23 1:26 PM) Temperature [36.5-37.9 DegC] 36.8 DegC (03/18/23 1:26 PM) Heart Rate 84 bpm (03/18/23 1:26 PM) Respiratory Rate 18 br/min (03/18/23 1:26 PM) Blood Pressure 126/76mmHg (03/18/23 1:26 PM) Mean Blood Pressure 87 mmHg (03/18/23 1:26 PM) Cuff Pulse Pressure 50 mmHg (03/18/23 1:26 PM) Social History Social History Type Response Smoking Status Never smoked cigaret petra Sex Female Implantable Device List Procedure Provider Procedure Date Device Type Site Unknown Unknown 03/16/20 Unknown Unknown Device Identifier Serial Number Lot or Batch Number Manufacturing Date Expiration Date Distinct Identification Code MRI Safety Implantable Status Assigning Authority Unknown Unknown [id number] Unknown 02/20/22 Unknown Unknown Active Unk nown Anes H&P * MD Kaveh, Ila N: SIGN MD Kaveh, Ila Lopez: SIGN, VERIFY MD Kaveh, Ila Lopez: VERIFY, SIGN MD Shay, Tj: MODIFY, SIGN MD Shay, Tj: SIGN Event Display: Anes H&P Authored Date: [id number] Patient: CINDY LARRY Age: 37 years Sex: Female : 1985 Associated Diagnoses: None Author: RYAN Carson, Jonelle Aragon Preoperative Information Anesthesia Preop Info: Procedure: Section Date: 04/10/23 06:00 Surgeons: MD Zee Susan E Diagnosis: Previous Section . History of Present Illness 37yo , EVY with complicated by LV noncompaction cardiomyopathy, severe tricuspid regurgitation, Junctional rhythm with underlying atrial fibrillation s/p dual chamber pacemaker, h/o TIA in setting of Afib, chronic L. subclavian DVT for which she is on Lovenox. Prior . Now scheduled for above in the main OR Anesthesia History PONV: Yes, following prior . History of Motion Sickness: Denies. Patient Complications: Negative. Family History of Anesthesia Problems: Negative. Functional Capacity 1-3 METS = Poor: Walks slowly, Stairs slowly, Activity limited by, pelvic pain. Symptoms: Denies SOB/CP. Medical History Cardiovascular: F/b [facility] Cardiology, See studies or note below. Hypertension: Beta Beto, Well controlled. Valves: severe TR, moderate MR per 02/06/23 Echo. Heart failure (noncompaction cardiomyopathy): Preserved EF, Last EF 55-60% per 02/06/23 Echo. Dysrhythmia: A-fib, S/P cardioversion (unsuccessful 09/2019), Rate controlled, + beta beto, Pacemaker. Medical Devices: Pacemaker (Medtronic Butler XT, SN: [id number]. Implanted 05/26/19), See [employer]hoc form for pacemaker clinic recommendations. Pulmonary: COVID vaccine completed + boosters. Hematologic: Anemia: No transfusions. Clots: H/O DVT (chronic L. subclavian), Last event 2017, several months post- , Lovenox. Neurologic: TIA: Date 2019, No residuals, Aspirin. Health Status Allergies: Allergic Reactions (Selected) NKA. Histories Procedure History: Shave biopsy (SNOMED CT 127588314) on 09/15/2020 at 35 Years. Comments: 09/15/2020 16:18 GAVINO Sharif LPN, Edith L pelvic abdomen Cardioversion (SNOMED CT 886708949) on 10/01/2019 at 34 Years. Comments: 10/02/2019 08:57 GAVINO Rocha LPN, Lindsey Underlying rhythm Afib with V Pacing Attempted CV with 200 joules x3 in sync biphasic mode without latter-day of NSR Procedure aborted after three attempts Pacemaker catheter, device (SNOMED CT 6793725651) in the month of 05/2019 at 34 Years. D&C - Dilatation and curettage (SNOMED CT 5366344049) on 12/21/2017 at 32 Years. (SNOMED CT 874893544) on 12/11/2017 at 32 Years. [place] tooth extraction (SNOMED CT 03572566) in 2007 at 22 Years. uterine septum removal (SNOMED CT 702632299).. 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 Never smoked cigarettes Other Tobacco Use: Never used other tobacco products Alcohol: Denies Recreational Drugs: Denies . Physical Examination VS/Measurements: 03/18/2023 13:26 Temp: 36.8 Pulse: 84 BP: 126/76 MAP: 87 RR: 18 SPO2: 100 FIO2: Wt(kg): 63.0 BMI: 23 Height(cm): 164 . General: Alert, Oriented, No distress. Airway: Mallampati classification: II (soft palate, fauces, uvula visible). Hyomental Distance: 30-40mm. Mouth: Within normal limits. Teeth: Within normal limits. Head: Normocephalic. Neck: Supple, Good extension, No masses. Trachea: Midline. Respiratory: CTA bilaterally, No wheezes. Cardiovascular: Heart: RRR, No murmurs. Edema: None. Gastrointestinal: Gravid. Musculoskeletal: Normal strength. Neurologic: No focal deficits. Assessment and Plan Medications: Pre-Surgery Medication Instructions All diet and medication instructions will be provided by the Maternal- Medicine service. aspirin (aspirin 81 mg oral delayed release tablet) 1 tab by mouth once daily . _ enoxaparin (enoxaparin 60 mg/0.6 mL injectable solution) 60 mg subcutaneously every 12 hours . _ ergocalciferol (Vitamin D2) 2 gummies by mouth once daily . _ furosemide (Lasix 20 mg oral tablet) 0.5 tab by mouth once daily . _ metoprolol (Metoprolol Succinate ER 25 mg oral tablet, extended release) See Instructions .Take 1.5 tablets by mouth every evening (37.5 mg PO qPM) _ metroNIDAZOLE (Flagyl 250 mg oral tablet) 2 tab by mouth every 12 hours . not taking multivitamin, ( 1 Plus 1 oral tablet) 1 tab by mouth once daily . _ . Does patient use aspirin?: Yes. Does patient use beta blockers?: Yes. Does patient use SHELBY- I/ARB drugs?: No. Does patient use narcotic analgesics for chronic pain? (>1 month AND >30mg morphine or equivalent daily): No. Anesthesiologist Assessment and Plan ASA Classification: Class III. Anesthetic Plan: Anesthetic technique discussed: Neuraxial, GA if needed. Special monitoring discussed: Arterial line. Risks discussed: Nausea-vomiting, Headache, Sore throat, Dental injury, Allergic reaction, Serious complications, Discussed risk of bleeding and infection for neuraxial anesthetic and need to hold anticoagulation 24 hours before the procedure. Also discussed risk of bleeding and heart-related complications after delivery. Review / Management Laboratory Results: Lab results 03/11/2023 08:43 EST WBC Count-Quest 8.4 Thousand/uL Hemoglobin Refl 11.0 g/dL LOW Hematocrit Refl 34.9 % LOW RBC Refl 3.64 Million/uL LOW MCV Refl 95.9 fL MCHC (QST) 31.5 g/dL LOW MCH Refl 30.2 pg RDW Refl 13.7 % Platelet Count 197 Thousand/uL MPV-Quest 11.3 fL Myelocytes-Quest 2 % HI Metamyelocytes-Quest 1 % HI . Ordered Today: Pacemaker Clinic consulted today. EKG: Not indicated. Diagnostics: Cardio-OB note History of Present Illness Ms. Larry is a 37 yo F with a history of noncompaction cardiomyopathy and a junctional heart rhythm s/p dual chamber pacemaker placement who presents for follow up in the Cardio-Obstetrics clinic. She is a at 32+4 weeks' gestation (EVY 04/28/23). Ms. Larry is a longtime patient of Dr. Mendoza in [place] - please see his initial note from 12/10/2018 for an in-depth review of her extensive cardiac history. 11/08/22- We first saw Ms. Larry in the Cardio-OB clinic, at which time she reported feeling overall well with only complaints of some occasional palpitations that improved with routine exercise. Her echo showed a drop in her EF from 60 to 50% with some increased RA and RV dilation which was presumed due to HD effects of on top of her existing LVNC. We made no changes to her plan andasked for her to self monitor for symptoms closely and follow up in 1 month with another echo. 12/06/22- She returned for a second visit, at which point she reported feeling slightly more fatigued and that she had stopped running for exercise. She attributed her fatigue to FARIBA - getting IV ironinfusions. She also reported slightly more palpitations and her metoprolol succinate was increased from 12.5 to 25 qPM prior to that visit. 12/11/22- We discussed Ms. Larry in our PACHD surgical conference with Dr. Lynn joining. Etiology of her HF thought to be potentially severe TR/ RV dysfunction leading to LV dysfunction vs. beginning of dilated CM. Recommended discussion with AHF and ICU level admission for delivery (for CVC and invasive hemodynamic monitoring). I spoke to Dr. 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 He was in agreement with close surveillance and careful medical management throughout , with full AHF consultation after delivery. At this time, the group did not feel strongly that she needs to move down closer to [place] in the late second/ early third trimester or have any MCS on standby (e.g., delivery in a hybrid OR, pre-emptive cannulation for ECMO) for her delivery as long as she continues to do well clinically for the remainder of her leading up to delivery 12/20/22- Saw Dr. Lynn locally in [place], noted some leg swelling, was prescribed lasix 10 mg daily and advised to try compression stockings. She was also referred back to device clinic to see if increasing the sensitivity of her device would help with some of her exertional symptoms. She went to [place] for a work trip shortly after this, early December, and was able to walk around and be on her feet most of the day, did not need lasix. 01/10/23- follow up with device clinic, interrogation showed 2 episodes of NSVT. Discussed possible life vest with her EP Dr. Valle, who felt that increasing her BB and re-monitoring would be next best step. Her beta beto was inc to metop succinate 25 BID but she could not tolerate this dose due to fatigue and orthostasis. After much titration, decided to settle on metop 37.5 mg qPM 02/07/23- echo on 01/15 structurally normal In the interim, Ms. Larry reports that she has been tolerating the metop 37.5 qPM dose okay. She still notices the effect of increased BB during the day but denies orthostasis. She also reports her palpitations are under good control with this dose. Her device interrogation 02/22 showed one episode of NSVT (very brief, 1 second at 194 bpm) on 02/07. She denies correlating symptoms. Assessment/Plan Ms. 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 She is a at 32+4 weeks' gestation (EVY 04/28/23). Today at her visit, a delivery plan was made for Ms. Larry to deliver between 37-38 weeks' (between 04/07 and 04/14/23) gestation in light of her new diagnosis of IUGR. In reviewing dates with Ms. Larry, it is likely that 04/10/23 will be her admission date for planned [id number], andshzenaida will plan to come down to the [place] area the day prior as well as stop her lovenox 24 hours prior to admission in anticipation of spinal anesthesia. Given that our next Cardio-OB clinic is 04/11, she will likely not be seen in clinic unless she decides to change the date of her admission. Kyle have an outpatient follow up scheduled locally with Dr. Lynn on 03/22, and I will order an echo to be done prior to her visit with him so we can evaluate her cardiac function within 1 month of delivery. At this time, our plan is for an Anesthesia consult, SICU admission, planned CVC (+/- A line), and delivery in the main OR, which will require some planning with MFM and Anesthesia. PACHD will be consulted while she is admitted for L&D. 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 Electronically Reviewed/Signed by: Candy García M.D. Author Signature Dt/Tm:03/13/2023 06:10 PM [facility] [place] Echo TransTHORacic TTE Complete 02/06/23 Summary 1. Mildly dilated left ventricle for [...] a month ago, there is no change. . Orders placed for day of surgery: None. Pending issues: None. Patient Education Patient Education: A[facility] ([facility]. Electronic Signature on File Electronically Reviewed/Signed by: Jonelle Carson, JOSSUE, RYAN Author Signature Dt/Tm:03/18/2023 01:44 PM [facility] Reviewed/Signed by: Tj Day MD Cosigner Signature Dt/Tm: 03/18/2023 02:07 PM Resident Department of Anesthesia Electronically Reviewed/Signed by: Ila Linn MD Cosigner Signature Dt/Tm: 03/18/2023 03:30 PM Department of Anesthesia NWE Patient Care team information Care Team Personnel Name: MD Rodgers Peter H Position: Physician Member Role: Lifetime Relationship Address: Address: [address] [place] [id number] [place] Name: DO Fortune Kristen M Position: Physician - Family Med Member Role: Primary Care Provider Address: Address: [address] [address] [place] Name: RYAN Bergman Stacey L Position: Nurse Pract - Cardiology Member Role: Lifetime Relationship Address: Address: [address] [place] [address] Name: MD Nova, Sara Position: Physician - Anesthesiologist Member Role: Lifetime Relationship Address: Address: [address] [place], [place] [address] [address] [place] Care Team Related Persons Name: REGINA LARRY Name: RACHEL DAVIES
--- OUTSIDE RECORDS SUMMARY | 2023-04-14 19:37 | External Medical Summary | Continuity of Care Document ---
Author Name Unknown Organization [place] [address] Е[address]ЕНА STEWART Address [address] [place] [address] [address] [place] [id number] Care Team Providers Care Work Adjustment Instructor Name Role Phone Chiara Fortune Primary Care Physician [phone] Encounter [facility] [id number] Date(s): 02/18/23 [facility]18/[facility] Obstetrics and Gynecology [address] [place] [address], [address] [place] [address] [phone] Encounter Diagnosis (Discharge Diagnosis) - 02/18/23 Discharge Disposition: Home or Self Care Attending Physician: MD Pierce Lauren A Referring Physician: RYAN Hung Amy L Allergies, Adverse Reactions, Alerts No Known Allergies Assessment and Plan Extracted from: Title:MFM Clinic Note Author:MD Wendi, Maurilio Kilpatrick ate:02/18/23 Patient is a 37yo at 30w1d with complicated by LV noncompaction cardiomyopathy, severe [...] -Secondary to malpresentation -Planning for repeat delivery (has not been scheduled as of yet) 6. History of GHTN in previous -Continue [...] today. Next growth ultrasound scheduled for 03/07/23 - will start weekly testing with NST/BPP at 32 weeks 11. 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 Vaginal discharge -Genital culture - negative for yeast and BV Delivery Plan Plan for RLTCS and Levonorgestrel IUD placement at 39 weeks gestation unless a clinical indication arises sooner. Follow Up -Follow up visit and growth ultrasound 03/07/23, please TigerText Dr. Candy García when patient is roomed as she plans to come see patient as well [2] - will start weekly testing with NST/BPP at 32 weeks (due to patient logistics) Maurilio Adame MD FACOG attending I discussed care with fellow at the time of this visit. Agree. Note that we have offered Dr. Larry once-weekly BPP testing (including NST plus ultrasound parameters ) rather than the common twice-weekly testing schedule default at [facility], since travel here is time-consuming. Immunizations Given and Recorded Vaccine Date Status [...] q12h, Disp# 180 pen_needle, Refills: 3, Pharmacy: [facility] Start Date: 08/22/22 Stop Date: 08/17/23 Status: Ordered Lasix 20 mg oral tablet Start: 12/20/22 15:11:00 EDT, 0.5 tab, PO, Daily, Disp# 30 tab, Refills: 3, Pharmacy: [id number] Start Date: 12/20/22 Status: Ordered Metoprolol Succinate ER 25 mg oral tablet, extended release Start: 02/09/23 12:15:00 EDT, See Instructions, Disp# 180 tab, Refills: 3, Take 1.5 tablets by mouth every evening (37.5 mg PO qPM), Pharmacy: [id number] Start Date: 02/09/23 Status: Ordered 1 Plus 1 oral tablet Start: 11/16/20 8:14:00 EDT, 1 tab, PO, Daily Start Date: 11/16/20 Status: Ordered Vitamin D2 Start: 12/10/18 15:57:00 EDT, See Instructions, 2 gummies daily Start Date: 12/10/18 Status: Ordered Mental Status 02/18/23 Barriers to Learning one year None evide nt Mandatory Health Literacy Documentation Yes Health Literacy Communication Barriers N ever Primary Language American Problem List Condition Confirmation Course Effective Dates [...] Status Clini cathleen Service Informant Discharge Diagnosis 02/18/23 Non-Specified Procedures Procedure Date Related Diagnosis Body Site Status Shave biopsy 1 09/15/20 Completed Cardioversion 2 10/01/19 Completed Pacemaker catheter, device 05/2019 Completed D&C - Dilatation and curettage 12/21/17 Completed 12/11/17 Completed [place] tooth extraction 2007 C ompleted uterine septum removal Co mpleted 1pelvic abdomen 2Underlying rhythm Afib with V Pacing Attempted CV with 200 joules x3 in sync biphasic mode without oriental orthodox of NSR Procedure aborted after three attempts Vital Signs Most recent to oldest [Reference Range]: 1 2 Height 164.4 cm (02/18/23 10:48 AM) Patient Weight 62.3 kg (02/18/23 10:48 AM) Body Mass Index 23.05 kg/m2 (02/18/23 10:48 AM) Blood Pressure 122/74mmHg (02/18/23 11:05 AM) 137/87mmHg (02/18/23 10:48 AM) Cuff Pulse Pressure 50 mmHg (02/18/23 10:48 AM) Social History Social History Type Response Smoking Status Never smoked cigaret petra Sex Female Implantable Device List Procedure Provider Procedure Date Device Type Site Unknown Unknown 03/16/20 Unknown Unknown Device Identifier Serial Number Lot or Batch Number Manufacturing Date Expiration Date Distinct Identification Code MRI Safety Implantable Status Assigning Authority Unknown Unknown [id number] Unknown 02/20/22 Unknown Unknown Active Unk nown MFM Outpt Note * MD Stan, Livia Phillips: MODIFY MD Pierce Lauren A: MODIFY, MODIFY Event Display: MFM Outpt Note Authored Date: History of Present Illness Patient doing well at this time Denies any complaints No obstetric concerns Endorses good movement No chest pain shortness of breath or palpitation No change in swelling No change in exercise tolerance issues: 1. 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 h/o TIA due to A fib 4. L subclavian DVT, chronic 5. h/o CS 6. h/o gHTN in G1 7. h/o uterine septum resection 8. Iron deficiency anemia 9. AMA [1] Review of Systems Vaginal Bleeding: [No] Contractions: [No] Leaking Fluid: [No] Movement: [Yes] Physical Exam Patient appears well, no distress, alert and oriented Breathing comfortably, lungs are clear Regular rate and rhythm Abdomen soft nontender gravid Lower extremityno significant edema +FHT by doppler, normal Assessment/Plan Patient is a 37yo at 30w1d with complicated by LV noncompaction cardiomyopathy, severe [...] -Secondary to malpresentation -Planning for repeat delivery (has not been scheduled as of yet) 6. History of GHTN in previous -Continue [...] today. Next growth ultrasound scheduled for 03/07/23 - will start weekly testing with NST/BPP at 32 weeks 11. 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 Vaginal discharge -Genital culture - negative for yeast and BV Delivery Plan Plan for RLTCS and Levonorgestrel IUD placement at 39 weeks gestation unless a clinical indication arises sooner. Follow Up -Follow up visit and growth ultrasound 03/07/23, please TigerText Dr. Candy García when patient isroomed as she plans to come see patient as well [2] - will start weekly testing with NST/BPP at 32 weeks (due to patient logistics) Maurilio Adame MD FACOG attending I discussed care with fellow at the time of this visit. Agree. Note that we have offered Dr. Larry once-weekly BPP testing (including NST plus ultrasound parameters ) rather than the common twice-weekly testing schedule default at [facility], since travel here is time-consuming. LMP/EGA/EVY Gestational Age (EGA) and EVY * Note: EGA calculated as of 02/18/2023 EVY:04/28/2023EGA*:30 weeks 1 day Type:AuthoritativeMethodDate:07/22/2022 Method:Last Menstrual Period(07/22/2022) Confirmation:Confirmed Description:-- Comments:-- Entered by:JUAN LUIS Martinez Christine on 10/16/2022 Other EVY Calculations for this : No additional EVY calculations have been recorded for this OB History History(1,0,1,1) # 1 Baby 1 Outcome Date:2017 Outcome or Result: Gest Age:37 weeks Outcome:Live Sex:FemaleWt:1941 g Hospital:[facility] Baby 1 Outcome Date:2021 Outcome [...] (05/2019)D&C - Dilatation and curettage (12/21/2017) (12/11/2017) [place] tooth extraction (2007)uterine septum removal Medications acetaminophen, [...] MGM and PGF. Health Status Family Member(s) [1][facility] Clinic Note; MD Sunil, Lencho Ferraro 02/07/2023 13:02 EDT [2][facility] Clinic Note; MD Sunil, Lencho Ferraro 02/07/2023 13:02 EDT Electronic Signature on File Electronically Reviewed/Signed by: Maurilio Adame MD Author Signature Dt/Tm:02/18/2023 11:43 AM Resident Division of Maternal Medicine Electronically Reviewed/Signed by: Livia Pierce MD Cosigner Signature Dt/Tm: 02/18/2023 02:23 PM Division of Maternal Medicine [facility] Patient Care team information Care Team Personnel Name: MD Vishal, Vipin Rodríguez Position: Physician Member Role: Lifetime Relationship Address: Address: [address] [place] [id number] [place] Name: DO Fortune Kristen M Position: Physician - Family Med Member Role: Primary Care Provider Address: Address: [address] [place] [id number] [place] Name: RYAN Bergman Stacey L Position: Nurse Pract - Cardiology Member Role: Lifetime Relationship Address: Address: [address] [place] [address] [place] Name: MD Bhatt Jansie Position: Physician - Anesthesiologist Member Role: Lifetime Relationship Address: Address: [address] [place] [phone] [place] Care Team Related Persons Name: REGINA LARRY Name: RACHEL DAVIES
--- OUTSIDE RECORDS SUMMARY | 2023-04-14 19:37 | External Medical Summary | Continuity of Care Document ---
Author Name Unknown Organization [facility] [address] TE Address [address] [place] [address] [address] [place] [id number] Care Team Providers Care Account Executive Name Role Phone Chiara Fortune Primary Care Physician [phone] [facility] [id number] Date(s): 03/28/23 - 03/28/[facility] [facility] Obstetrics and Gynecology [address] [place] [address], [address] [place] [address] [phone] Encounter Diagnosis High-risk (Discharge Diagnosis) - 03/28/23 35 weeks gestation of (Discharge Diagnosis) - 03/28/23 Vaginal discharge(Discharge Diagnosis) - 03/28/23 Discharge Disposition: Home or Self Care Attending Physician: RYAN Hung Amy L Referring Physician: MD Tricia, Phong Gilbert Allergies, Adverse Reactions, Alerts No Known Allergies Assessment and Plan Extracted from: Title:MFm return Office Visi t with Testing Author:RYAN Hung Amy L Date:03/28/23 37yo at 35w4d with E DC of 04/28/2023. 1. 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 García recommendations: CardioObstetrics Plan Documentation Anjali Larry WHO Maternal Class: III EVY: scheduled 04/10/23 Date of evaluation 03/07/23 EVY scheduled 04/10/23 Cardiac Diagnosis noncompaction cardiomyopathy (LMNA mutation of unknown clinical significance) junctional rhythm s/p dual chamber pacemaker NSVT EF 50% Severe tricuspid regurgitation PACHD Consult? YES Cardiac Meds Metoprolol succinate 37.5 mg qPM Anticoagulation (Y/N) YES- on therapeutic Lovenox, will need to stop 24h prior to scheduled Location of L/D Main OR recommended Anesthesia Consult? YES- recommend consultation with Cardiothoracic Anesthesia in addition to OB Anesthesia Telemetry indicated? YES Invasive hemodynamic CV monitoring indicated (CVC, A line, etc)? YES- needs CVC and SICU bed CVC can be placed intra-operatively (in OR, ahead of her ) She will need a SICU bed with CVC and telemetry monitoring for at least 24h post-delivery Operative delivery indications (from CV perspective)? Assisted second stage? Recommend delivery in Main OR and admission to SICU afterward concerns? IUGR Next appointment/testin03/22/[address] Lynn Last Echo: 02/06/23- EF 55-60%, severe TR, RV dilation with normal function, estimated PASP 39 mm Hg Last CMRI: 03/2019- see results above Last Holter: Device interrogation 02/22/23- one episode brief NSVT Other Please see updated Cardio-OB plan closer to time of delivery as recommendations may change pending ongoing clinical assessment Candy García MD [facility] Food Safety Specialistsalesperson driver Division of Cardiology, [facility] [3] 2.H/o FGR - 03/28/2023 with normal EFW [...] Flu shot completed. Reviewed RSV vaccine. GBS: collected 03/28/2023. Contraception: Levonorgestrel IUD at the time of delivery Delivery planning:Repeat deliveryandMirena IUDat 39 weeks, or sooner if any maternal or indications arise. Plan to stop Lovenox 24h prior to procedure -Boy, no to circ, Breast feeding and has pump. Servando Lomeli. Delivery Plan Given patient'sknown cardiac morbidity, and new finding of growth restrictionwe will planrepeat C-sectionfor 37 to 38 weeks gestational age. Ydrephmwx26/20/2023. Follow Up 2X weekly at this time until delivery. Arrival to D as follows as of 03/08/2023 emessage; poke to patient and she will be scheduled for on 04/10/23. Patient plans to stay local due to [address] and early arrival times for C- Sections. Pre-op Labs to be done at [facility]. Telemetry noted. [facility] SCHEDULING - Please schedule patient for education. Patient would like to be scheduled for 6 week Post appointment with Dr. Pierce.Please advise if okay. Immunizations Given and Recorded Vaccine Date Status [...] q12h, Disp# 180 pen_needle, Refills: 3, Pharmacy: [facility] Start Date: 08/22/22 Stop Date: 08/17/23 Status: Ordered Lasix 20 mg oral tablet Start: 12/20/22 15:11:00 EDT, 0.5 tab, PO, Daily, Disp# 30 tab, Refills: 3, PRN ONLY, Pharmacy: [id number] Start Date: 12/20/22 Status: Ordered Metoprolol Succinate ER 25 mg oral tablet, extended release Start: 02/09/23 12:15:00 EDT, See Instructions, Disp# 180 tab, Refills: 3, Take 1.5 tablets by mouth every evening (37.5 mg PO qPM), Pharmacy: [id number] Start Date: 02/09/23 Status: Ordered 1 Plus 1 oral tablet Start: 11/16/20 8:14:00 EDT, 1 tab, PO, Daily Start Date: 11/16/20 Status: Ordered Vitamin B12 Start: 03/22/23 14:56:00 EST Start Date: 03/22/23 Status: Ordered Vitamin D2 Start: 12/10/18 15:57:00 EDT, 2 gummies, PO, Daily Start Date: 12/10/18 Status: Ordered Mental Status 03/28/23 Barriers to Learning one year None evide nt Mandatory Health Literacy Documentation Yes Health Literacy Communication Barriers N ever Primary Language Mongolian Problem List Condition Confirmation Course Effective Dates [...] Dates Health Status Cl inical Service Informant High-risk Discharge Diagnosis 03/28/23 Non-Specified 35 weeks gestation of Discharge Diagnosis 03/28/23 Vaginal discharge Discharge Diagnosis 03/28/23 Procedures Procedure Date Related Diagnosis Body Site Status Shave biopsy 1 09/15/20 Completed Cardioversion 2 10/01/19 Completed Pacemaker catheter, device 05/2019 Completed D&C - Dilatation and curettage 12/21/17 Completed 12/11/17 Completed [place] tooth extraction 2007 C ompleted uterine septum removal Co mpleted 1pelvic abdomen 2Underlying rhythm Afib with V Pacing Attempted CV with 200 joules x3 in sync biphasic mode without religious of NSR Procedure aborted after three attempts Results Laboratory List Name Date Urine Protein/Glucose POC Outpt 03/28/23 Most recent to oldest [Reference Range]: 1 Glucose Urine Dipstick Ref Range [negati ve] (03/28/23 3:21 PM) Protein Urine Dipstick Ref Range [negati ve] (03/28/23 3:21 PM) U Protein Negative 1 (03/28/23 3:21 PM) U Gluc Negative (03/28/23 3:21 PM) 1Result Comment: Performed at: [facility] Obstetrics and Gynecology, [address] [place] [address], [address], [place] [address] Orders for Microbiology Reports Name Date Fungus Culture, Vaginal w Smear (CULTURE ,FUNGUS(VAG)) 03/28/23 Gram Smear Only (GRAM SMEAR ONLY) 3 Group B Strep Screen (Molecular) (GRP B STREP SC (MOL)) 03/28/23 Microbiology Reports TEST:Fungus.Culture, Vaginal STATUS:Unauthenticated BODY SITE: SOURCE:Vaginal COLLECTED DATE/TIME:03/28/23 3:07 PM Culture NO FUNGUS ISOLATED AFTER 1 DAY TEST:Gram.Smr Only STATUS:Auth (Verified) BODY SITE: SOURCE:Vaginal COLLECTED DATE/TIME:03/28/23 3:07 PM Status FINAL 03/28/2023 TEST:Group B Strep Screen (Molecular) STATUS:Auth (Verified) BODY SITE: SOURCE:Genital COLLECTED DATE/TIME:03/28/23 3:01 PM Status FINAL 03/30/2023 Vital Signs Most recent to oldest [Reference Range]: 1 Patient Weight 62.8 kg (03/28/23 1:20 PM) Blood Pressure 124/78mmHg (03/28/23 1:24 PM) Social History Social History Type Response Smoking Status Never smoked cigaret petra Sex Female Implantable Device List Procedure Provider Procedure Date Device Type Site Unknown Unknown 03/16/20 Unknown Unknown Device Identifier Serial Number Lot or Batch Number Manufacturing Date Expiration Date Distinct Identification Code MRI Safety Implantable Status Assigning Authority Unknown Unknown [id number] Unknown 02/20/22 Unknown Unknown Active Unk nown Obstetrics Outpt Note * RYAN Hung Amy L: MODIFY, MODIFY, MODIFY, MODIFY, PERFORM Event Display: Obstetrics Outpt Note Authored Date: [id number] Chief Complaint 37 wks History of Present Illness [facility] return appt at [facility]. Patient concerns/questions:still with vaginal discharge with change in odor. Denies vaginal itching or burning. Also with tail bone pain but not irregular contractions or cramping. States good movement for gestational age. ROS: Denies any vaginal bleeding, leakage of fluid, pain, worsening swelling, SOB, fever, or concerning uterine cramping. Reviewed medications,refills, ultrasound with copy of report given to patient, pp decisions, and patient's upcoming schedule. Visit Baby A Activity:Present per patient Vital Signs/Measurements Systolic Blood Aguiroxi492 mmHg Diastolic Blood Wopwzbmi71 mmHg Patient Zvtmny90.8 kg Patient alert, calm, and in no apparent distress. FH35 cm. Abdomen soft and nontender. Thompson swelling. External genitalia no lesions or odor. Vaginal discharge normal clear mucus discharge. GBS collected and sent. GS/FC sent. Cervix checknot needed.Director Selection And Administration Belle Leung CMA. OB History History(1,0,1,1) # 1 Baby 1 Outcome Date:2017 Outcome or Result: Gest Age:37 weeks Outcome:Live Sex:FemaleWt:1941 g Hospital:[facility] Baby 1 Outcome Date:2021 Outcome or Result:Spontaneous Gest Age:-- Outcome: Sex:-- Physical Exam Vitals & Measurements BP:124/78 WT:62.800kg(Dosing) WT:62.8kg Testing Testing Type: Non-Stress test Baby A - FHR Baseline: 125 bpm Baby A - NST End Time: 03/28/23 13:39:00 Baby A - NST Start Time: 03/28/23 13:17:00 Baby A - NST Total Time: 22 minute Indications for Testing: IUGR, documented less than 10th percentile, Maternal medical condition, Other: pulmonary HTN, h/o TIA, AMA Ordered Frequency for Testin times per week Reading Provider: RYAN Hung Amy L Testing Results/Interpretation Baby A NST Non-Stress Test Interpretation:Reactive Images * Final Report * Report SERVICE(S) PROVIDED: Follow-up, single fetus [id number] INDICATIONS: 35 weeks gestation of Z3A.35 cardiac disease: noncompaction cardiomyopathy, RV dilation, arrhythmia s.p.PM AMA Antepartum testing 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 Normalizing growth (>10th percentile now). Mild hydramnios. Livia Pierce MD Electronically Signed Final Report 03/28/2023 02:34 pm Result Type:MFM US Date of Service:March 28, 2023 14:16 EST Authorization Status:Final Subject:MFM Ultrasound Author or Import Date:MD Pierce Lauren A on March 28, 2023 14:34 EST Encounter info:[id number], [facility] [place], 03/28/2023 - Contributor system:[facility] [1] Assessment/Plan 37yo at 35w4d with EDC of 04/28/2023. 1. 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 García recommendations: CardioObstetrics Plan Documentation Anjali Larry WHO Maternal Class: III EVY: scheduled 04/10/23 Date of evaluation 03/07/23 EVY scheduled 04/10/23 Cardiac Diagnosis noncompaction cardiomyopathy (LMNA mutation of unknown clinical significance) junctional rhythm s/p dual chamber pacemaker NSVT EF 50% Severe tricuspid regurgitation PACHD Consult? YES Cardiac Meds Metoprolol succinate 37.5 mg qPM Anticoagulation (Y/N) YES- on therapeutic Lovenox, will need to stop 24h prior to scheduled Location of L/D Main OR recommended Anesthesia Consult? YES- recommend consultation with Cardiothoracic Anesthesia in addition to OB Anesthesia Telemetry indicated? YES Invasive hemodynamic CV monitoring indicated (CVC, A line, etc)? YES- needs CVC and SICU bed CVC can be placed intra-operatively (in OR, ahead of her ) She will need a SICU bed with CVC and telemetry monitoring for at least 24h post-delivery Operative delivery indications (from CV perspective)? Assisted second stage? Recommend delivery in Main OR and admission to SICU afterward concerns? IUGR Next appointment/testin03/22/[address] Lynn Last Echo: 02/06/23- EF 55-60%, severe TR, RV dilation with normal function, estimated PASP 39 mm Hg Last CMRI: 03/2019- see results above Last Holter: Device interrogation 02/22/23- one episode brief NSVT Other Please see updated Cardio-OB plan closer to time of delivery as recommendations may change pending ongoing clinical assessment Candy García MD [facility] Food Safety Specialistsalesperson driver Division of Cardiology, [facility] [3] 2.H/o FGR - 03/28/2023 with normal EFW [...] Flu shot completed. Reviewed RSV vaccine. GBS: collected 03/28/2023. Contraception: Levonorgestrel IUD at the time of delivery Delivery planning:Repeat deliveryandMirena IUDat 39 weeks, or sooner if any maternal or indications arise. Plan to stop Lovenox 24h prior to procedure -Boy, no to circ, Breast feeding and has pump. Servando Lomeli. Delivery Plan Given patient'sknown cardiac morbidity, and new finding of growth restrictionwe will planrepeat C-sectionfor 37 to 38 weeks gestational age. Pegejwlyq90/20/2023. Follow Up 2X weekly at this time until delivery. Arrival to +D as follows as of 03/08/2023 emessage; poke to patient and she will be scheduled for on 04/10/23. Patient plans to stay local due to [address] and early arrival times for C-Sections. Pre-op Labs to be done at [facility]. Telemetry noted. [facility] SCHEDULING - Please schedule patient for education. Patient would like to be scheduled for 6 week Post appointment with Dr. Pierce.Please advise if okay. LMP/EGA/EVY Gestational Age (EGA) and EVY * Note: EGA calculated as of 03/28/2023 EVY:04/28/2023EGA*:35 weeks 4 days Type:AuthoritativeMethod Date:07/22/2022 Method:Last Menstrual [...] (05/2019)D&C - Dilatation and curettage (12/21/2017) (12/11/2017) [place] tooth extraction (2007)uterine septum removal Medications acetaminophen, [...] PCR: NEGATIVE Gluc 1 Hr Outside: 77 Hgb Outside: 11 Hgb-PIT:10.3 g/dLLow Neisseria gonorrhoeae, by PCR: NEGATIVE Platelets Outside: 190 Plts-PIT: 220 thou/mcL [1]MFM Ultrasound; MD Pierce Lauren A 03/28/2023 14:16 EST Electronic Signature on File Electronically Reviewed/Signed by: RYAN Linn Author Signature Dt/Tm:03/28/2023 03:23 PM Division of Maternal- Medicine [facility] [address], [address] [place] [address] Electronically Reviewed/Signed by: RYAN Linn Cosigner Signature Dt/Tm: 03/28/2023 03:26 PM Division of Maternal- Medicine [facility] [address], [address] [place] [address] ALS Note * MD Pierce Lauren A: VERIFY, PERFORM Event Display: Report Authored Date: [id number] SERVICE(S) PROVIDED: Follow-up, single fetus [address] INDICATIONS: 35 weeks gestation of Z3A.35 cardiac disease: noncompaction cardiomyopathy, RV dilation, arrhythmia s.p.PM AMA Antepartum testing 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 Normalizing growth (>10th percentile now). Mild hydramnios. Livia Pierce MD Electronically Signed Final Report 03/28/2023 02:34 pm Patient Care team information Care Team Personnel Name: MD Vishal, Vipin Rodríguez Position: Physician Member Role: Lifetime Relationship Address: Address: [address] [place] [address] [place] Name: Murtaza Grubbs Kimberly Position: Pharmacist BCMA Member Role: Pharmacy - Lifetime Address: Address: [facility] [address] [place] [address] [place] Name: DO Fortune Kristen M Position: Physician - Family Med Member Role: Primary Care Provider Address: Address: [address] [address] [place] Name: RYAN Bergman Stacey L Position: Nurse Pract - Cardiology Member Role: Lifetime Relationship Address: Address: [address] [facility] [place] [address] [place] Name: MD Bhatt Jansie Position: Physician - Anesthesiologist Member Role: Lifetime Relationship Address: Address: [address] [place] [address] [place] Care Team Related Persons Name: REGINA LARRY Name: RACHEL DAVIES
--- OUTSIDE RECORDS SUMMARY | 2023-04-14 19:37 | External Medical Summary | Continuity of Care Document ---
Author Name Unknown Organization [place] [address] [address] Address [address] [place] [address] [address] [place] [id number] Care Team Providers Care Financial Brokers Name Role Phone Devika Chiara M Primary Care Physician [phone] [facility]counter [facility] [id number] Date(s): 04/08/23 - 04/08/23 [place] [address] [address] [facility] Obstetrics and Gynecology [address] [place] [address], [address] [place] [address] [phone] Encounter Diagnosis HRP (high risk )(Discharge Diagnosis) - 04/08/23 Discharge Disposition: Home or Self Care Attending Physician: MD Laureen, Flo Rodríguez Referring Physician: MD Tricia, Phong Gilbert Allergies, [...] 30 tab, Refills: 3, PRN ONLY, Pharmacy: [id number] Start Date: 12/20/22 Status: Ordered Metoprolol Succinate ER 25 mg oral tablet, extended release Start: 02/09/23 12:15:00 EDT, See Instructions, Disp# 180 tab, Refills: 3, Take 1.5 tablets by mouth every evening (37.5 mg PO qPM), Pharmacy: [id number] Start Date: 02/09/23 Status: Ordered 1 Plus 1 oral tablet Start: 11/16/20 8:14:00 EDT, 1 tab, PO, Daily Start Date: 11/16/20 Status: Ordered Vitamin B12 Start: 03/22/23 14:56:00 EST Start Date: 03/22/23 Status: Ordered Vitamin D2 Start: 12/10/18 15:57:00 EDT, 2 gummies, PO, Daily Start Date: 12/10/18 Status: Ordered Mental Status 04/08/23 Barriers to Learning one year None evide nt Mandatory Health Literacy Documentation Yes Health Literacy Communication Barriers N ever Primary Language Urdu Problem List Condition Confirmation Course Effective Dates [...] Informant HRP (high risk ) Discharge Diagnosis 04/08/23 Non-Specified Procedures Procedure Date Related Diagnosis Body Site Status DELIVERY ONLY 04/10/23 Co mpleted Shave biopsy 1 09/15/20 Completed Cardioversion 2 10/01/19 Completed Pacemaker catheter, device 05/2019 Completed D&C - Dilatation and curettage 12/21/17 Completed 12/11/17 Completed [place] tooth extraction 2007 C ompleted uterine septum removal Co mpleted 1pelvic abdomen 2Underlying rhythm Afib with V Pacing Attempted CV with 200 joules x3 in sync biphasic mode without latter day of NSR Procedure aborted after three attempts Vital Signs Most recent to oldest [Reference Range]: 1 Patient Weight 63.4 kg (04/08/23 10:44 AM) Blood Pressure 123/83mmHg (04/08/23 10:44 AM) Social History Social History Type Response Smoking Status Never smoked cigaret petra Sex Female Implantable Device List Procedure Provider Procedure Date Device Type Site Unknown Unknown 03/16/20 Unknown Unknown Device Identifier Serial Number Lot or Batch Number Manufacturing Date Expiration Date Distinct Identification Code MRI Safety Implantable Status Assigning Authority Unknown Unknown [id number] Unknown 02/20/22 Unknown Unknown Active Unk nown Note * MD Laureen, Serdar H: VERIFY, PERFORM Event Display: Report Authored Date: [id number] SERVICE(S) PROVIDED: [place] [employer] [id number] INDICATIONS: 37 weeks gestation of Z3A.37 cardiac disease: noncompaction cardiomyopathy, RV dilation, arrhythmia s.p.PM AMA Antepartum testing 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 Location: Intrauterine Heart Rate(bpm): 155 Cardiac Activity: Present Lie: Longitudinal Presentation: Cephalic Placenta: Posterior Right Lateral Amniotic Fluid GUILLERMO FV: Mild Polyhydramnios (8-11.9 cm) Largest Pocket(cm) 8 OB HISTORY: : 3 Term: 1 Thaddeus: 0 SAB: 1 TOP: - Ectopic: - Livin GESTATIONAL AGE: LMP: 37w 1d Date: 07/22/22 EVY: 04/28/23 Best: 37w 1d Det. By: LMP (07/22/22) EVY: 04/28/23 CERVIX UTERUS ADNEXA: Cervix Poorly seen due to late gestational age IMPRESSION: Previously seen Mild Polyhydramnios (8-11.9 cm) seen again. Flo Garduno MD Electronically Signed Final Report 04/08/2023 11:41 am Patient Care team information Care Team Personnel Name: MD Wendi, Maurilio Position: Resident Member Role: Lifetime Relationship Address: Address: [address] [place] [address] [place] Name: MD Vishal, Vipin Rodríguez Position: Physician Member Role: Lifetime Relationship Address: Address: [address] [place] [address] [place] Name: Murtaza Grubbs Kimberly Position: Pharmacist BCMA Member Role: Pharmacy - Lifetime Address: Address: [address] [address] [place] Name: DO Fortune Kristen M Position: Physician - Family Med Member Role: Primary Care Provider Address: Address: [address] [place] [address] [place] Name: RYAN Bergman Stacey L Position: Nurse Pract - Cardiology Member Role: Lifetime Relationship Address: Address: [address] [place] [address] [place] Name: MD Bhatt Jansie Position: Physician - Anesthesiologist Member Role: Lifetime Relationship Address: Address: [address] [place] [address] [place] Name: MD Farr Sonia J Position: Physician - Anesthesiologist Member Role: Lifetime Relationship Address: Address: [address] [place] [address] [place] Care Team Related Persons Name: DIONTE LARRY Address: home [address] [facility] [place] [id number] Name: REGINA LARRY Name: RACHEL DAVIES
--- OUTSIDE RECORDS SUMMARY | 2023-04-14 19:38 | External Medical Summary | Continuity of Care Document ---
Author Name Unknown Organization [place] [address] [address] [facility] Address [address] [place] [phone] Care Team Providers Care Steel Chipper Name Role Phone ElijahsergQasimChiara Vladimir Primary Care Physician [phone] Encounter [facility] [id number] Date(s): 12/20/22 - 12/20/22 [facility] [address], [address] [place] [address] [phone] Encounter Diagnosis Anticoagulation management encounter(Discharge Diagnosis) - 12/20/22 Cardiomyopathy(Discharge Diagnosis) - 12/20/22 Complete heart block(Discharge Diagnosis) - 12/20/22 History of TIA (transient ischemic attack)(Discharge Diagnosis) - 12/20/22 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 Paroxysmal atrial fibrillation(Discharge Diagnosis) - 12/20/22 Pacemaker(Discharge Diagnosis) - 12/20/22 Discharge Disposition: Home or Self Care Attending Physician: DO Lynn Jason D Allergies, Adverse Reactions, Alerts No Known Allergies Assessment and Plan Extracted from: Title:Cardiology Office Visit Note Author:DO Lynn Jason D Date:12/20/22 1.Anticoagulation manageme nt encounter 2.Cardiomyopathy 3.Complete heart block 4.History of TIA (transient ischemic attack) 5.Left ventricular non-compaction cardiomyopathy 6.Pacemaker 7.Paroxysmal atrial fibrillation Anjali is being followed closely by the joint cardio OB program at [facility] on a monthly basis. As I discussed with Anjali we presented her last week at the adult congenital heart diseaseweekly conferencewith maternal- medicine. We did [id number] comparisons of her right ventricle and her left ventricle both pre and post pacemaker implantation as well as looked at her MRI which did not reveal any evidence of ARVC. There are concerns about her right ventricle and her RV size and RV function especially in light of the associated increased blood volume of . I am concerned that she now has pedal edema and some ankle swelling. She notes if she wears compression stockings it is pretty well controlled but if she is on her feet they do swell even more than what they were today. She will need an echocardiogram in 3 weeks time to reassess her RV size and function. At this point were doingour best to keep her safe and allow the baby to continue to "cook" long enough for safe delivery. I encouraged her to wear compression stockings on a regular basis. I did give her Lasix 10 mg as needed if she had worsening swelling. With her trip to [facility] we discussed the importance of a low-salt diet and daily weights and trying to avoid salt when she eats out. I will reach out to pacer clinic. if you look at her device settings she does appear to have a relatively blunted heart rate. She does complain of some increased shortness of breath when she first starts to do something like climbing a flight of stairs and I wonder if we increase the ramp and sensitivity of her device and therefore increase her HR and cardiac output we can help her feel better and potentially reduce her swelling. I discussed with her if she noted worsening symptoms to immediately let us know. She is scheduled to be seen in cardiology/ obclinic in about 3 weeks. Her echo will be completed the week prior. She remains on anticoagulation with bruising secondary to her Lovenox injections. She denies any skin breakdown at this point. I'll see her in 3 months but sooner if there are any issues. Immunizations Given and Recorded Vaccine Date Status Refusal Reason SARS-CoV-2 mRNA-1273 (6y+ bivalent) 02/06/22 Recor ded influenza virus vaccine, inactivated 02/02/21 Colt rded SARS-CoV-2 (COVID-19) mRNA BNT-162b2 vax 1 06/21/20 Recorded SARS-CoV-2 (COVID-19) mRNA BNT-162b2 vax 2 05/31/20 Recorded 1Result Comment: 2021-02-13: Historical information-source unspecified 2Result Comment: 2021-02-13: Historical information-source unspecified Medications enoxaparin 60 mg/0.6 mL injectable solution Start: 05/03/23 8:26:00 EDT, 50 mg =, subQ, q12h, Disp# 180 pen_needle, Refills: 3, Pharmacy: [facility] Start Date: 08/22/22 Stop Date: 08/17/23 Status: Ordered IV iron Start: 12/20/22 14:38:00 EDT, IV iron Start Date: 12/20/22 Status: Ordered Lasix 20 mg oral tablet Start: 12/20/22 15:11:00 EDT, 0.5 tab, PO, Daily, Disp# 30 tab, Refills: 3, Pharmacy: [id number] Start Date: 12/20/22 Status: Ordered Metoprolol Succinate ER 25 mg oral tablet, extended release Start: 12/05/22 11:12:00 EDT, 1 tab, PO, Daily, Disp# 30 tab, Refills: 11, Pharmacy: [id number] Start Date: 12/05/22 Status: [...] Effective Dates Health Status Clinical Service Informant Anticoagulation management encounter Discharge Diagnosis 12/20/22 Complete heart block Discharge Diagnosis 12/20/22 Left ventricular non-compaction cardiomyopathy Discharge Diagnosis 12/20/22 History of TIA (transient ischemic attack) Discharge Diagnosis 12/20/22 Pacemaker Discharge Diagnosis 12/20/22 Paroxysmal atrial fibrillation Discharge Diagnosis 12/20/22 Cardiomyopathy Discharge Diagnosis 12/20/22 Procedures Procedure Date Related Diagnosis Body Site Status Shave biopsy 1 09/15/20 Completed Cardioversion 2 10/01/19 Completed Pacemaker catheter, device 05/2019 Completed D&C - Dilatation and curettage 12/21/17 Completed 12/11/17 Completed [place] tooth extraction 2007 C ompleted uterine septum removal Co mpleted 1pelvic abdomen 2Underlying rhythm Afib with V Pacing Attempted CV with 200 joules x3 in sync biphasic mode without mormon of NSR Procedure aborted after three attempts Vital Signs Most recent to oldest [Reference Range]: 1 Patient Weight 58 kg (12/20/22 2:46 PM) Heart Rate 66 bpm (12/20/22 2:46 PM) Blood Pressure 110/64mmHg (12/20/22 2:46 PM) BP Location # 1 Right Arm (12/20/22 2:46 PM) Social History Social History Type Response Smoking Status Never smoked cigaret petra Sex Female Implantable Device List Procedure Provider Procedure Date Device Type Site Unknown Unknown 03/16/20 Unknown Unknown Device Identifier Serial Number Lot or Batch Number Manufacturing Date Expiration Date Distinct Identification Code MRI Safety Implantable Status Assigning Authority Unknown Unknown [id number] Unknown 02/20/22 Unknown Unknown Active Unk nown Cardiology Outpatient Note * DO Lynn Jason D: PERFORM Event Display: Cardiology Outpt Note Authored Date: [id number] Primary Care Provider DO Fortune Kristen M Chief Complaint general cards f/u History of Present Illness She denies any chest pain or chest pressure. She does note some shortness of breath climbing a flight of stairs but notes she can carry on a conversation and is not breathless at the top. She hasa 10-minute walk from her parking spot to her office and she can do this without having to stop. She does note that she has some swelling of the dorsum of her foot as well as from her ankle to her mid tibia which is new in the last month. She is also having rare palpitations but they feel stronger each is a skipped beat. She denies any sudden onset sudden offset of her heart racing. She has had no orthostatic symptoms or falls. She denies any orthopnea. She denies early satiety and notes she is eating small meals every 2 hours. She notes with her first child who had some delay in growth her belly really never got significantly larger with . She did not appear short of breath talking in sentences today. Review of Systems PAST MEDICAL HISTORY: 1. 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 8. 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 9. 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 Extremities: No clubbing or cyanosiswith mild pitting edema of feet and mild edema to mid tibia. Psychiatric: Affect appeared appropriate. Assessment/Plan 1.Anticoagulation management encounter 2.Cardiomyopathy 3.Complete heart block 4.History of TIA (transient ischemic attack) 5.Left ventricular non-compaction cardiomyopathy 6.Pacemaker 7.Paroxysmal atrial fibrillation Anjali is being followed closely by the joint cardio OB program at [facility] on a monthly basis. As I discussed with Anjali we presented her last week at the adult congenital heart diseaseweekly conferencewith maternal- medicine. We did zfec-[id number]-[id number] comparisons of her right v entricle and her left ventricle both pre and post pacemaker implantation as well as looked at her MRI which did not reveal any evidence of ARVC. There are concerns about her right ventricle and her RV size and RV function especially in light ofthe associated increased blood volume of . I am concerned that she now has pedal edema and some ankle swelling. She notes if she wears compression stockings it is pretty well controlled but if she is on her feet they do swell even more thanwhat they were today. She will need an echocardiogram in 3 weeks time to reassess her RV size and function. At this point were doingour best to keep her safe and allow the baby to continue to "cook" long enough for safe delivery. I encouraged her to wear compression stockings on a regular basis. I did give her Lasix 10 mg as needed if she had worsening swelling. With her trip to [facility] we discussed the importance of a low-salt diet and daily weights and trying to avoid salt when she eats out. I will reach out to pacer clinic. if you look at her device settings she does appear to have a relatively blunted heart rate. She does complain of some increased shortness of breath when she first starts to do something like climbing a flight of stairs and I wonder if we increase the ramp and sensitivity of her device and therefore increase her HR and cardiac output we can help her feel better and potentially reduce her swelling. I discussed with her if she noted worsening symptoms to immediately let us know. She is scheduledto be seen in cardiology/ obclinic in about 3 weeks. Her echo will be completed the week prior. She remains on anticoagulation with bruising secondary to her Lovenox injections. She denies any skin breakdown at this point. I'll see her in 3 months but sooner if there are any issues. Problem List/Past Medical History Ongoing Advanced maternal [...] (05/2019)D&C - Dilatation and curettage (12/21/2017) (12/11/2017) [place] tooth extraction (2007)uterine septum removal Medications acetaminophen, 1000 mg= 2 tab, PO, ONCE, PRN aprepitant(Emend), 40 mg= 1 cap, PO, ONCE enoxaparin(enoxaparin 60 mg/0.6 mL injectable solution), 50 mg, subQ, q12h, 3 refills ergocalciferol(Vitamin D2), See Instructions furosemide(Lasix 20 mg oral tablet), 10 mg= 0.5 tab, PO, Daily, 3 refills metoprolol(Metoprolol Succinate ER 25 mg oral tablet, extended release), 25 mg= 1 tab, PO, Daily, 11 refills multivitamin, ( 1 Plus 1 oral tablet), 1 tab, PO, Daily unknown medication(IV iron) Allergies NKA Social History Smoking Status Never [...] Signature on File CC: Chiara Fortune DO [address] [facility] [address] [facility] [id number] CC: Candy García M.D. 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 [facility] [place] [address], [address] [place] [address] JDF Patient Care team information Care Team Personnel Name: DO Fortune Kristen M Position: Physician - Family Med Member Role: Primary Care Provider Address: Address: [address] [facility] [address] [place] [address] [place] Name: RYAN Bergman Stacey L Position: Nurse Pract - Cardiology Member Role: Lifetime Relationship Address: Address: [address] [facility] [address] [place] [address] [place] Name: MD Bhatt Jansie Position: Physician - Anesthesiologist Member Role: Lifetime Relationship Address: Address: [address] [facility], [place] [address] [place] Care Team Related Persons Name: EWELINA LARRY Address: home [address], [phone] Name: REGINA LARRY Name: RACHEL DAVIES
--- OUTSIDE RECORDS SUMMARY | 2023-04-14 19:38 | External Medical Summary | Continuity of Care Document ---
Author Name Unknown Organization [facility] [place] [address] [address] Address [address] [place] [address] [address] [place] [id number] Care Team Providers Care Evp Head Of [employer] [place] Experience Strategy Name Role Phone Chiara Fortune Primary Care Physician [phone] [id number] Date(s): 12/06/22 - 12/06/22 [facility] Ob[facility]s [facility] Gyne[facility] [address] [place] [address], [address] [place] [address] [phone] Encounter Diagnosis 20 weeks gestation of (Discharge Diagnosis) - 12/06/22 Cardiomyopathy(Discharge Diagnosis) - 12/06/22 Discharge Disposition: Home or Self Care Attending Physician: MD Pierce Lauren A Referring Physician: MD Tricia, Phong Gilbert Allergies, Adverse Reactions, Alerts No Known Allergies Assessment and Plan Extracted from: Title:Cardiology Office Visit Note Author:Vladimir García Amanda Date:12/07/22 Ms. 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 She is a at 19+4 weeks' gestation (EVY 04/28/23) and a patient of Dr. Sai Lynn in [place]. Today at her visit, Ms. Larry reports overall feeling about the same as she did at her last visit with us a month ago. She still examines euvolemic and well perfused today. I am somewhat concerned about her report that she is feeling more fatigued with exertional intolerance that has caused her to stop running (previously jogging 3-4 times a week), which hasreportedly caused her to have some more palpitations. Reassuringly, she did increase her metoprolol succinate dose from 12.5 mg to 25 mg daily and reports no worsening symptoms of heart failure and low output state that would make me think she has marginal CO/CI, which is always a concern given her LVNC, borderline reduced EF, and appearance of a restrictive physiology on echo imaging.Giventhe lack of evidence for hemodynamic instability or worsening heart failure at present, I am not inclined to make any changes to her cardiac regimen today. However, I did advise Ms. Larry to keep track of her symptoms and let us know as soon as possible if she feels that she is doing worse in any way, as it may have implications on the need for further evaluation and treatment during her including but not limited to: invasive hemodynamic evaluation, hospitalization, andearlier delivery. I think it would be helpful to have a multidisciplinary conference discussion about her case at our [facility] surgical conference, where I will invite Dr. Lynn, our heart failure specialists, Dr. Valle (her EP), and our [facility] colleagues. Ms. Larry has had prior genetic testing with an LMNA variant of unknown significance that has not been reclassified as pathogenic as of 06/04/22 based on aClinvar search, though I think this would be important to discuss with our HF colleagues who may have further insight with respect togenetic cardiomyopathies. Plan summary: - [facility] surgical conference discussion 12/11/22 - Further recommendationsmay be madeafterconference discussion - Otherwise follow up in 1 month with another echo locally prior I saw an examined the patient today. I spent a total of60 minutes in care for the patient today. This includes review of data, formulation ofand coordination of care plan, and actual care provided to the patient. Greater than 50% of this time was spent in [id number]-[id number] time with the patient in the clinic visit, where I explained in detail and counseledthe patient regarding his/ her/ theircurrent diagnoses, results of testing done thus far, andmanagement plan. Candy García MD [facility] Fire Protection Engineerforest economics professor Adult Congenital Heart Disease and Cardio-Obstetrics Division of Cardiology, [facility] [place] Extracted from: Title:[facility] Cardio/OB Note Author:MD Wendi, Bronson i Date:12/06/22 37yo at 19w4d by LMP c/w early US Problem list: Left ventricular noncompaction cardiomyopathy, right heart dilation with severe tricuspid regurgitation, mild pulmonary hypertension, junctional rhythm with underlying a fib s/p dual chamber pacemaker, -Patient is followed outside of by Dr Lynn at [facility]. She was seen in Cardio-OB clinic with Dr García today (Please see her note from this date). Metoprolol recently increased from 12.5mg to 25mg XL daily for palpitations - pt tolerating dose well. 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 García could be a concerning mutation. She is worried that patient is at high risk for decompensation in 3rd trimester - ACHD team plans to discuss with heart failure team at upcoming conference for further reccs -Patient lives in [place] and had been cautioned in the past that it may make sense to relocate to [place] towards the end of the -monthly maternalechocardiogram at this time. Last 12/03 with EF 50% -anesthesia consult in the third trimester. findings (12/06) detailed anatomy overall not suggestive of malformation; we discussed with them the limits of US in anomaly detection - antepartum testing, beginning at 32 weeks if not earlier depending on growth - echo scheduled h/o TIA,recanalized chronic DVT of the left subclavian vein at the site of her pacemaker lead -Continue Lovenox 50mg Q12 (weight baseddosing --> may need adjustment with advancing ) elevated BP at one visit -patient monitors BP at home and reports SBP 130s or lower -continue close monitoring. Anemia -followed by Dr. Rodgers - recent Hb (11/09) 8.9 --> recieving IV iron infusions. h/o GHTN vs preeclampsia in her G1 -ASA 81mg daily h/o prior CD for breech -plan is for scheduled repeat CD s/p uterine septum removal -We recommend cervical length screening at the time of her anatomy scan AMA -cell free DNA low risk Genetic Testing: Cell free dnalow risk male. Carrier screening +Biotinidase deficiency, +Carnitine Palmitoyltransferase II Deficiency,+Homocystinuria, CBS related - (12/06) Dr. Pierce spoke to Stevan - carrier screening to be completed for FOB Partner Sumit Davies ( [birth year]76) had screening sent but the lab performed only the standard 12- or 14-panel carrier screen (which was all normal) rather than the specific conditions Anjali carries. I called the lab and they can perform the desired screening on the sample they still have--it will take up to 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 [see outside labrecords dated 10/17/21] There has been no additional information about this variant in the intervening 3 years. Third trimester blood workTBD. Flu shot not discussed today She asked whether she should get the next covid booster, but it isn't available yet. Tdap after 27 weeks. GBS-yet to be collected. CARE: sex:Boy. contraception:Patient considering BTL vs LARC vs partner vasectomy [place] feeding:to be discussed Breast pump prescription: Lead Php Developer: [1] Immunizations Given and Recorded Vaccine Date Status Refusal Reason SARS-CoV-2 mRNA-1273 (6y+ bivalent) 02/06/22 Recor ded influenza virus vaccine, inactivated 02/02/21 Colt rded SARS-CoV-2 (COVID-19) mRNA BNT-162b2 vax 1 06/21/20 Recorded SARS-CoV-2 (COVID-19) mRNA BNT-162b2 vax 2 05/31/20 Recorded 1Result Comment: 2021-02-13: Historical information-source unspecified 2Result Comment: 2021-02-13: Historical information-source unspecified Medications enoxaparin 60 mg/0.6 mL injectable solution Start: 08/22/22 8:26:00 EDT, 50 mg =, subQ, q12h, Disp# 180 pen_needle, Refills: 3, Pharmacy: [facility] Start Date: 08/22/22 Stop Date: 08/17/23 Status: Ordered Ferrex-150 Start: 11/16/20 8:14:00 EDT, 2 tab, PO, q48h Start Date: 11/16/20 Status: Ordered Metoprolol Succinate ER 25 mg oral tablet, extended release Start: 12/05/22 11:12:00 EDT, 1 tab, PO, Daily, Disp# 30 tab, Refills: 11, Pharmacy: [id number] Start Date: 12/05/22 Status: Ordered 1 Plus 1 oral tablet Start: 11/16/20 8:14:00 EDT, 1 tab, PO, Daily Start Date: 11/16/20 Status: Ordered Vitamin D2 Start: 12/10/18 15:57:00 EDT, See Instructions, 2 gummies daily Start Date: 12/10/18 Status: Ordered Mental Status 12/06/22 Barriers to Learning one year None evide nt Mandatory Health Literacy Documentation Yes Health Literacy Communication Barriers N ever Primary Language Albanian Problem List Condition Confirmation Course Effective Dates [...] Effective Dates Health Status Clinical Service Informant Cardiomyopathy Discharge Diagnosis 12/06/22 Non-Specified 20 weeks gestation of Discharge Diagnosis 12/06/22 Non-Specified Procedures Procedure Date Related Diagnosis Body Site Status Shave biopsy 1 09/15/20 Completed Cardioversion 2 10/01/19 Completed Pacemaker catheter, device 05/2019 Completed D&C - Dilatation and curettage 12/21/17 Completed 12/11/17 Completed [place] tooth extraction 2007 C ompleted uterine septum removal Co mpleted 1pelvic abdomen 2Underlying rhythm Afib with V Pacing Attempted CV with 200 joules x3 in sync biphasic mode without mu-ism of NSR Procedure aborted after three attempts Vital Signs Most recent to oldest [Reference Range]: 1 Height 162.5 cm (12/06/22 11:55 AM) Patient Weight 57.7 kg (12/06/22 11:55 AM) Body Mass Index 21.85 kg/m2 (12/06/22 11:55 AM) Blood Pressure 134/69mmHg (12/06/22 11:55 AM) Cuff Pulse Pressure 65 mmHg (12/06/22 11:55 AM) BP Location # 1 Left Arm (12/06/22 11:55 AM) Social History Social History Type Response Smoking Status Never smoked cigaret petra Sex Female Implantable Device List Procedure Provider Procedure Date Device Type Site Unknown Unknown 03/16/20 Unknown Unknown Device Identifier Serial Number Lot or Batch Number Manufacturing Date Expiration Date Distinct Identification Code MRI Safety Implantable Status Assigning Authority Unknown Unknown [id number] Unknown 02/20/22 Unknown Unknown Active Unk nown Cardiology Outpatient Note * MD Ricky, Candy: PERFORM Event Display: Cardiology Outpt Note Authored Date: [id number] Primary Care Provider DO Fortune Kristen M Referring Provider MD Tricia, Phong Gilbert Reason for Consultation LV noncompaction, Chief Complaint return [facility] ob visit...& cardio F/U...19weeks 7 4days...boy History of Present Illness Ms. Larry is a 37 yo F with a history of noncompaction cardiomyopathy and a junctional heart rhythm s/p dual chamber pacemaker placement who presents for follow up in the Cardio-Obstetrics clinic. She is a at 19+4 weeks' gestation (EVY 04/28/23). Ms. Larry is a longtime patient of 's in [place] - please see his initial note from 12/10/2018 for an in- depthreview of her extensive cardiac history. Wefirst saw Ms. Larry in the Cardio-OB clinic on 11/08/22, at which time she reported feeling overall [...] up in 1 month with another echo. She had this echo done in [place] a few days prior to today's visit, and results showed no significant interval change, with her EF still measuring 50% by Crain's biplane. Today at her visit, Ms. Larry notes that she feels slightly more fatigued with some exertional intolerance with running. She has been started on IV iron repletion for iron deficiency anemia and attributes her fatigue to this; she has stopped running as a result of her fatigue. As a result, she notes increased palpitations and has since increased her metoprolol from 12.5 mg daily to 25 mg daily. She reports no significant increase in fatigue, malaise, nausea or other discomfort on the increased dose of metoprolol. She otherwise denies CP/ lightheadedness/ dizziness/ syncope or near syncope. Pastmedical history: 1. Accelerated hypertension in the third trimester of her first . 2. Cardiac MRI concerning for ventricular noncompaction (preserved LV function), although her right ventricle is markedly dilated with severe tricuspid regurgitation of unclear etiology. - Genetic testing 05/2019with LMNA gene variant of unknown significance: [id number] ([id number]) 3. 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 8. 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 9. Findings consistent with a partially recanalized chronic DVT involving the left subclavian, 02/09/20, at the site of her pacemaker [1] Social history: denies smoking,ETOH, drug use. 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 Physical Exam Vitals & Measurements BP:134/69 HT:162.5cm WT:57.7kg WT:57.700kg(Dosing) BMI:21.85 General: Well appearing, thin femalesitting in examination room in no acute distress.She is awake, alert, and oriented. HEENT:Extraocular muscles are intact bilateral.Neck is supple.No masses.No carotid bruits were appreciated on auscultation. Lungs:Clear to auscultation bilateral without focal wheezes or crackles. Cardiovascular:Regular rate and rhythm.There are no murmurs, rubs orgallops.Normal sounding S2. Jugular venous pulsation is observed at level of clavicle with pt sitting upright. Abdomen:Gravid Extremities:No clubbing, cyanosis, or edema.Radial pulses are 2+ bilateral. Skin:No rashes, excoriations, ulcerations, wounds. 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 Neuro:Cranial nerves II-XII grossly intact.No focal deficits were noted. Psychiatric:Normal mood and affect. Diagnostic Results Echocardiogram 11/29/2022 1. Normal left ventricular size. [...] regurgitation. 5.Splenic masses as described (cysts?) 6.Bradycardia Assessment/Plan Ms. 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 She is a at 19+4 weeks' gestation (EVY 04/28/23) and a patient of Dr. Sai Lynn in [place]. Today at her visit, Ms. Larry reports overall feeling about the same as she did at her last visit with us a month ago. She still examines euvolemic and well perfused today. I am somewhat concerned about her report that she is feeling more fatigued with exertional intolerance that has caused herto stop running (previously jogging 3-4 times a week), which hasreportedly caused her to have some more palpitations. Reassuringly, she did increase her metoprolol succinate dose from 12.5 mg to 25mg daily and reports no worsening symptoms of heart failure and low output state that would make methink she has marginal CO/CI, which is always a concern given her LVNC, borderline reduced EF, and appearance of a restrictive physiology on echo imaging.Giventhe lack of evidence for hemodynamicinstability or worsening heart failure at present, I am not inclined to make any changes to her cardiac regimen today. However, I did advise Ms. Larry to keep track of her symptoms and let us know as soon as possible if she feels that she is doing worse in any way, as it may have implications on the need for further evaluation and treatment during her including but not limited to: invasive hemodynamic evaluation, hospitalization, andearlier delivery. I think it would be helpful to have a multidisciplinary conference discussion about her case at our [facility] surgical conference, where I will invite Dr. Lynn, our heart failure specialists, Dr. Valle (her EP), and our M colleagues. Ms. Larry has had prior genetic testing with an LMNA variant of unknown significance that has not been reclassified as pathogenic as of 06/04/22 based on aClinvar search, though I think thiswould be important to discuss with our HF colleagues who may have further insight with respect togenetic cardiomyopathies. Plan summary: - [facility] - Further recommendationsmay be madeafterconference discussion - Otherwise follow up in 1 month with another echo locally prior I saw an examined the patient today. I spent a total of60 minutes in care for the patient today. This includes review of data, formulation ofand coordination of care plan, and actual care provided to the patient. Greater than 50% of this time was spent in [id number] time with the patient in the clinic visit, where I explained in detail and counseledthe patient regarding his/ her/ theircurrent diagnoses, results of testing done thus far, andmanagement plan. Candy García MD [facility] Fire Protection Engineerforest economics professor Adult Congenital Heart Disease and Cardio-Obstetrics Division of Cardiology, [facility] [place] Problem List/Past Medical History Ongoing Advanced maternal [...] (05/2019)D&C - Dilatation and curettage (12/21/2017) (12/11/2017) [place] tooth extraction (2007)uterine septum removal Medications acetaminophen, 1000 mg= 2 tab, PO, ONCE, PRN aprepitant(Emend), 40 mg= 1 cap, PO, ONCE enoxaparin(enoxaparin 60 mg/0.6 mL injectable solution), 50 mg, subQ, q12h, 3 refills ergocalciferol(Vitamin D2), See Instructions iron polysaccharide(Ferrex-150), 2 tab, PO, q48h metoprolol(Metoprolol Succinate ER 25 mg oral tablet, extended release), 25 mg= 1 tab, PO, Daily, 11 refills multivitamin, ( 1 Plus 1 oral tablet), 1 tab, PO, Daily Zero Hour Placeholder, None, Day of Tx Allergies NKA Social History Smoking Status Never [...] Paternal Uncle. Stroke: MGF, MGM and PGF. [1]Cardiology Office Visit Note; MD García Amanda 11/08/2022 16:08 EDT Electronic Signature on File Electronically Reviewed/Signed by: Cnady García M.D. Author Signature Dt/Tm:12/07/2022 07:42 PM [facility] [place] AC [facility] Outpt Note * MD Stan, Livia Phillips: MODIFY MD Stan, Livia Phillips: MODIFY, MODIFY MD Stan, Livia Phillips: MODIFY Event Display: [facility] Outpt Note Authored Date: [id number] Chief Complaint return [facility] ob visit...& cardio F/U...19weeks 7 4days...boy History of Present Illness patient states she has been more fatigued as of late. has stopped going on runs due to low energy denies any change in chest congestion, CP or SOB had some increase in palpitations that has improved with increased dose of Metoprolol 25mg XL denies any obstetric complaints Visit Vital Signs/Measurements Systolic Blood Mywhenrp199 mmHg Diastolic Blood Sogbszyv82 mmHg Patient Wycbqn96.7 kg Review of Systems Vaginal Bleeding: [No] Contractions: [No] Leaking Fluid: [No] Movement: [Yes] Physical Exam Vitals & Measurements BP:134/69 HT:162.5cm WT:57.7kg WT:57.700kg(Dosing) BMI:21.85 patient appears well not dyspneic lungs clear no JVP elevation noted no significant LE edema Assessment/Plan 37yo at 19w4d by LMP c/w early US Problem list: Left ventricular noncompaction cardiomyopathy, right heart dilation with severe tricuspid regurgitation, mild pulmonary hypertension, junctional rhythm with underlying a fib s/p dual chamber pacemaker, -Patient is followed outside of by Dr Lynn at [facility]. She was seen in Cardio-OB clinic with Dr García today (Please see her note from this date). Metoprolol recently increased from 12.5mg to 25mg XL daily for palpitations - pt tolerating dose well. 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 García could be a concerning mutation. She is worried that patient is at high risk for decompensation in 3rd trimester - A[facility]D team plans to discuss with heart failure team at upcoming conference for further reccs -Patient lives in [place] and had been cautioned in the past that it may make sense to relocate to [place] towards the end of the -monthly maternalechocardiogram at this time. Last 12/03 with EF 50% -anesthesia consult in the third trimester. findings (12/06) detailed anatomy overall not suggestive of malformation; we discussed with them the limits of US in anomaly detection - antepartum testing, beginning at 32 weeks if not earlier depending on growth - echo scheduled h/o TIA,recanalized chronic DVT of the left subclavian vein at the site of her pacemaker lead -Continue Lovenox 50mg Q12 (weight baseddosing --> may need adjustment with advancing ) elevated BP at one visit -patient monitors BP at home and reports SBP 130s or lower -continue close monitoring. Anemia -followed by Dr. Rodgers - recent Hb (11/09) 8.9 --> recieving IV iron infusions. h/o GHTN vs preeclampsia in her G1 -ASA 81mg daily h/o prior CD for breech -plan is for scheduled repeat CD s/p uterine septum removal -We recommend cervical length screening at the time of her anatomy scan AMA -cell free DNA low risk Genetic Testing: Cell free dnalow risk male. Carrier screening +Biotinidase deficiency, +Carnitine Palmitoyltransferase II Deficiency,+Homocystinuria, CBS related - (12/06) Dr. Pierce spoke to Stevan - carrier screening to be completed for FOB Partner Sumit Davies ( [birth year]76) had screening sent but the lab performed only the standard 12- [id number]-vbiwi carrier screen (which was all normal) rather than the specific conditions Anjali carries. Icalled the lab and they can perform the desired screening on the sample they still have--it will take up to 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 [see outside labrecords dated 10/17/21] There has been no additional information about this variant in the intervening 3 years. Third trimester blood workTBD. Flu shot not discussed today She asked whether she should get the next covid booster, but it isn't available yet. Tdap after 27 weeks. GBS-yet to be collected. CARE: sex:Boy. contraception:Patient considering BTL vs LARC vs partner vasectomy [place] feeding:to be discussed Breast pump prescription: Lead Php Developer: [1] Follow Up close f/u with Cardio/OB team plan for repeat visit in 4 weeks with maternal echo to be done before visit Maurilio Adame MD FACOG attending I saw & evaluated Anjali along with Dr García of cardiology and Dr Adame, MFM fellow. I'm somewhat concerned about her increasing fatigue, since typically this isn't a second-trimester complaint; cardiac evaluation today does not suggest volume overload or heart failure. Some decrement in LVEF onher most recent echo a few days ago which we will need to follow along with clinical evaluation. Christian will discuss further with [facility]D and heart failure groups as to additional evaluation/testing which might be needed. Traveling back to [place] around December 21, for a few days. New covid variant increasing in frequency in the [place], not sure about [place]; we recommended mask precautions for travel until more is known. LMP/EGA/EVY Gestational Age (EGA) and EVY * Note: EGA calculated as of 12/06/2022 EVY:04/28/2023EGA*:19 weeks 4 days Type:AuthoritativeMethod Date:07/22/2022 Method:Last Menstrual Period(07/22/2022) Confirmation:Confirmed Description:-- Comments:-- Entered by:JUAN LUIS Martinez Christine on 10/16/2022 Other EVY Calculations for this : No additional EVY calculations have been recorded for this OB History History(1,0,1,1) # 1 Baby 1 Outcome Date:2017 Outcome or Result: Gest Age:37 weeks Outcome:Live Sex:FemaleWt:1941 g Hospital:[facility] # 2 Baby 1 Outcome Date:2021 [...] (05/2019)D&C - Dilatation and curettage (12/21/2017) (12/11/2017) [place] tooth extraction (2007)uterine septum removal Medications acetaminophen(Tylenol), 650 mg= 2 tab, PO, Day of Tx, PRN acetaminophen, 1000 mg= 2 tab, PO, ONCE, PRN aprepitant(Emend), 40 mg= 1 cap, PO, ONCE dexAMETHasone, 10 mg= 2.5 mL, IV Push, Day of Tx, PRN diphenhydrAMINE, 25 mg= 0.5 mL, IV, Day of Tx, PRN enoxaparin(enoxaparin 60 mg/0.6 mL injectable solution), 50 mg, subQ, q12h, 3 refills EPINEPHrine, 0.3 mg= 0.3 mL, IM, Day of Tx, PRN ergocalciferol(Vitamin D2), See Instructions HYDROmorphone, 0.2 mg= 1 mL, IV Push, Day of Tx, PRN iron polysaccharide(Ferrex-150), 2 tab, PO, q48h metoprolol(Metoprolol Succinate ER 25 mg oral tablet, extended release), 25 mg= 1 tab, PO, Daily, 11 refills multivitamin, ( 1 Plus 1 oral tablet), 1 tab, PO, Daily prochlorperazine(Compazine), 10 mg= 2 mL, IV Push, Day of Tx, PRN Sodium Chloride 0.9%(NS Bolus), 1000 mL, IV, Day of Tx, PRN Zero Hour Placeholder, None, Day of Tx Allergies NKA Social History Smoking Status Never [...] MGM and PGF. Health Status Family Member(s) Radiology Results EVALUATION: Num Of Fetuses: 1 Heart Rate(bpm): 142 Cardiac Activity: Present Lie: Head to maternal right side Presentation: Transverse Placenta: Posterior NOT Low-lying Amniotic Fluid GUILLERMO FV: Subjectively within normal limits Largest Pocket(cm) 5.4 Comment: Thickened heterogenous placenta [2] (12/03/2022 16:51 EDT Echo TransTHORacic TTE Complete) Summary 1. Normal left ventricular size. 2. Mild [...] performed 11/02/2022, there is no significant change. [3] [1][facility] Clinic Note; MD Leal Elizabeth 11/08/2022 12:18 EDT [2]MFM Ultrasound; MD Laureen, Flo Rodríguez 12/06/2022 11:16 EDT [3]Echo TransTHORacic TTE Complete; DO Lynn Jason D 12/03/2022 16:51 EDT Electronic Signature on File Electronically Reviewed/Signed by: Maurilio Adame MD Author Signature Dt/Tm:12/06/2022 04:50 PM Resident Division of Maternal Medicine Electronically Reviewed/Signed by: Livia Pierce MD Cosigner Signature Dt/Tm: 12/06/2022 05:08 PM Division of Maternal Medicine RC Note * MD Laureen, Flo Rodríguez: VERIFY, PERFORM Event Display: Report Authored Date: [id number] SERVICE(S) PROVIDED: US Detailed Anatomy, 1 fetus 63036 INDICATIONS: 19 weeks gestation of Z3A.19 Maternal heart condition FGR in prior Detailed anatomic survey Z36 REMODELER: Technique: N/A EVALUATION: Num Of Fetuses: 1 Heart Rate(bpm): 142 Cardiac Activity: Present Lie: Head to maternal right side Presentation: Transverse Placenta: Posterior NOT Low-lying Amniotic Fluid GUILLERMO FV: Subjectively within normal limits Largest Pocket(cm) 5.4 Comment: Thickened heterogenous placenta --------- BIOMETRY: --------- BPD: 42.8 mm G. Age: 19w 0d 25 % CI: 76.18 % 70 - 86 FL/HC: 18.0 % 16.8 - 19.8 HC: 155.4 mm G. Age: 18w 3d 5 % HC/AC: 1.08 1.09 - 1.39 AC: 144.3 mm G. Age: 19w 5d 51 % FL/BPD: 65.4 % FL: 28 mm G. Age: 18w 4d 13 % FL/AC: 19.4 % 20 - 24 HUM: 27.6 mm G. Age: 18w 6d 33 % CER: 19 mm G. Age: 18w 4d 21 % NFT: 2.72 mm NB: 6.2 mm 40 % > 1 MoM Est. FW: 275 gm 0 lb 10 oz 22 % GESTATIONAL AGE: LMP: 19w 4d Date: 07/22/22 EVY: 04/28/23 U/S Today: 19w 0d EVY: 05/02/23 Best: 19w 4d Det. By: LMP (07/22/22) EVY: 04/28/23 TARGETED ANATOMY: Central Nervous System Calvarium/Cranial V.: Appears WNL Cereb./Vermis: Appears WNL Intracranial Lisa: Appears WNL Cisterna Magna: Appears WNL Cavum: Appears WNL Midline Falx: Appears WNL Parenchyma: Appears WNL 3rd Ventricle: Appears WNL Lateral Ventricles: Appears WNL 4th Ventricle: Appears WNL Choroid Plexus: Appears WNL Spine Cervical: Appears WNL Sacral: Appears WNL Thoracic: Appears WNL Shape/Curvature: Appears WNL Lumbar: Appears WNL Head/Neck Face: Coronal WNL Palate: Appears WNL Lips: Nose/lips WNL Profile: Appears WNL Neck: Appears WNL Orbits/Eyes: Appears WNL Nuchal Fold: Appears WNL Mandible: Appears WNL Nasal Bone: present Maxilla: Appears WNL Thorax Thoracic Contour: Appears WNL Ductal Arch: Appears WNL Lungs: Appear WNL SVC: Appears WNL 4 Chamber View: Appears WNL Interventr. Septum: Appears WNL Cardiac Activity: Appears WNL Cardiac Nelsonia: Lt chest 45 degree Cardiac Rhythm: Appears WNL Diaphragm: Appears WNL Cardiac Situs: Appears WNL 3 Vessel View: Appears WNL Rt Outflow Tract: Appears WNL 3 V Trachea View: Appears WNL Lt Outflow Tract: Appears WNL IVC: Appears WNL Aortic Arch: Appears WNL Crossing: Appears WNL Abdomen Ventral Wall: Appears WNL Lt Kidney: Appears WNL Situs: Appears WNL Rt Kidney: Appears WNL Stomach: Normal, on left side Bladder: Appears WNL Liver: Appears WNL Bowel: Normal echogenicity Extremities Lt Humerus: Appears WNL Lt Femur: Appears WNL Rt Humerus: Appears WNL Rt Femur: Appears WNL Lt Forearm: WNL, 2 long bones Lt Lower Le bones, angle WNL Rt Forearm: WNL, 2 long bones Rt Lower Le bones, angle WNL Lt Hand: Appears WNL Lt Foot: Appears WNL Rt Hand: Appears WNL Rt Foot: Appears WNL Other Umbilical Cord: 3-vessel cord Genitalia: Appears WNL Masses: None visualized Comment: Renal arteries visualized. CERVIX UTERUS ADNEXA: Cervix Length: 3.99 cm. Appears WNL Uterus Normal shape and size Right Ovary No adnexal masses seen Left Ovary No adnexal masses seen Cul [place] Sac No fluid Adnexa Unremarkable IMPRESSION: Pt has MFM consult Flo Garduno MD Electronically Signed Final Report 12/06/2022 11:28 am Patient Care team information Care Team Personnel Name: DO Fortune Kristen M Position: Physician - Family Med Member Role: Primary Care Provider Address: Address: [address] [address] [place] Name: RYAN Bergman Stacey L Position: Nurse Pract - Cardiology Member Role: Lifetime Relationship Address: Address: [address] [place] [address] [place] Name: MD Bhatt Jansie Position: Physician - Anesthesiologist Member Role: Lifetime Relationship Address: Address: [address] [place] [address] Care Team Related Persons Name: EWELINA LARRY Address: home [address] [facility], [phone] Name: REGINA LARRY Name: RACHEL DAVIES
--- OUTSIDE RECORDS SUMMARY | 2023-04-14 19:38 | External Medical Summary | Continuity of Care Document ---
Author Name Unknown Organization [place] [address] [address]А STEWART Address [address] [place] [address] [address] [place] [id number] Care Team Providers Care Chemical Engineering Technician Name Role Phone Chiara Fortune Primary Care Physician [phone] Encounter [facility] [id number] Date(s): 11/08/22 - 11/08/22 [place] [address] 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 She was seen in Cardio-OB clinic with Dr García today (Please see her note from this date). -Maternal TTE (11/02/22): Summary 1. Normal left ventricular size. 2. [...] right ventricle (RV 4C 4.3 cm to 5.0cm) and right atrium are more dilated. -Metoprolol 12.5mg daily. This can be increased to 25mg daily if patient feels symptomatic with palpitations. - growth surveillance, starting with detailed anatomy scan -antepartum testing, beginning at 32 weeks. -anesthesia consult in the third trimester. -She lives in [place] and had been cautioned in the past that it may make sense to relocate to [place] towards the end of the , although she may feel that commuting for visits makes more sense for her. 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 Anemia -followed by Dr. Rodgers h/o GHTN vs preeclampsia in her G1 -ASA 81mg daily -baseline PET labs ordered but not done h/o prior CD for breech -plan is for scheduled repeat CD s/p uterine septum removal -We recommend cervical length screening at the time of her anatomy scan AMA -cell free DNA low risk Genetic Testing: Cell free dnalow risk male. MSAFP next visit. 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 Third trimester blood workTBD. Flu shot not discussed today Tdap after 27 weeks. GBS-yet to be collected. CARE: sex:Boy. Circumcision: not yet discussed contraception:Patient considering BTL vs LARC vs partner vasectomy feeding:to be discussed Breast pump prescription: Literary Writer: Immunizations Given and Recorded Vaccine Date Status [...] Disp# 180 pen_needle, Refills: 3, [facility]acy: [facility] Start Date: 08/22/22 Stop Date: 08/17/23 Status: Ordered Ferrex-150 Start: 11/16/20 8:14:00 EDT, 2 tab, PO, q48h Start Date: 11/16/20 Status: Ordered Metoprolol Succinate ER 25 mg oral tablet, extended release Start: 06/11/22 9:21:00 EST, See Instructions, Disp# 15 tab, Refills: 11, TAKE 1/2 TABLET BY MOUTH EVERY DAY AT BEDTIME, Pharmacy: [id number] Start Date: 06/11/22 Status: Ordered 1 Plus 1 oral tablet Start: 11/16/20 8:14:00 EDT, 1 tab, PO, Daily Start Date: 11/16/20 Status: Ordered Vitamin D2 Start: 12/10/18 15:57:00 EDT, See Instructions, 2 gummies daily Start Date: 12/10/18 Status: Ordered Mental Status 11/08/22 Barriers to Learning one year None evide nt Mandatory Health Literacy Documentation Yes Health Literacy Communication Barriers N ever Primary Language Vincentian Problem List Condition Confirmation Course Effective Dates [...] Dilatation and curettage 12/21/17 Completed 12/11/17 Completed [place] tooth extraction 2007 C ompleted uterine septum removal Co mpleted 1pelvic abdomen 2Underlying rhythm Afib with V Pacing Attempted CV with 200 joules x3 in sync biphasic mode without adventism of NSR Procedure aborted after three attempts Vital Signs Most recent to oldest [Reference Range]: 1 Height 162.6 cm (11/08/22 11:28 AM) Patient Weight 55.5 kg (11/08/22 11:28 AM) Body Mass Index 20.99 kg/m2 (11/08/22 11:28 AM) Blood Pressure 126/72mmHg (11/08/22 11:28 AM) Cuff Pulse Pressure 54 mmHg (11/08/22 11:28 AM) BP Location # 1 Left Arm (11/08/22 11:28 AM) Social History Social History Type Response Smoking Status Never smoked cigaret petra Sex Female Implantable Device List Procedure Provider Procedure Date Device Type Site Unknown Unknown 03/16/20 Unknown Unknown Device Identifier Serial Number Lot or Batch Number Manufacturing Date Expiration Date Distinct Identification Code MRI Safety Implantable Status Assigning Authority Unknown Unknown [id number] Unknown 02/20/22 Unknown Unknown Active Unk nown MFM Outpt Note * MD Stan, Livia Phillips: MODIFY MD Stan, Livia Phillips: MODIFY Event Display: MFM Outpt Note Authored Date: [id number] Chief Complaint left lisseth. non compation cardiomyopathy....15weeks & 4days...boy History of Present Illness Patient reports feeling well. Her nausea is improved. She denies chest pain, SOB, dizziness, cramping, vaginal bleeding. She reports that she feels better if she runs/jogs at least 3x/week. Visit Vital Signs/Measurements Systolic Blood Tkbxayrb684 mmHg Diastolic Blood Uvpkzofx78 mmHg Patient Gxdham56.5 kg Physical Exam Vitals & Measurements BP:126/72 HT:162.6cm WT:55.500kg(Dosing) WT:55.5kg BMI:20.99 Assessment/Plan Left ventricular noncompaction cardiomyopathy, right heart dilation with severe tricuspid regurgitation, mild pulmonary hypertension, junctional rhythm with underlying a fib s/p dual chamber pacemaker, -Patient is followed outside of by Dr Lynn at [facility]. She was seen in Cardio-OB clinic with Dr García today (Please see her note from this date). -Maternal TTE (11/02/22): Summary 1. Normal left ventricular size. 2. [...] right ventricle (RV 4C 4.3 cm to 5.0cm) and right atrium are more dilated. -Metoprolol 12.5mg daily. This can be increased to 25mg daily if patient feels symptomatic with palpitations. - growth surveillance, starting with detailed anatomy scan -antepartum testing, beginning at 32 weeks. -anesthesia consult in the third trimester. -She lives in [place] and had been cautioned in the past that it may make sense to relocate to [place] towards the end of the , although she may feel that commuting for visits makes more sense for her. 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 Anemia -followed by Dr. Rodgers h/o GHTN vs preeclampsia in her G1 -ASA 81mg daily -baseline PET labs ordered but not done h/o prior CD for breech -plan is for scheduled repeat CD s/p uterine septum removal -We recommend cervical length screening at the time of her anatomy scan AMA -cell free DNA low risk Genetic Testing: Cell free dnalow risk male. MSAFP next visit. 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 Third trimester blood workTBD. Flu shot not discussed today Tdap after 27 weeks. GBS-yet to be collected. CARE: sex:Boy. Circumcision: not yet discussed contraception:Patient considering BTL vs LARC vs partner vasectomy [place] feeding:to be discussed Breast pump prescription: Literary Writer: Delivery Plan goal for delivery is 39 weeks, or earlier if indicated Follow Up Cardio-OB visit and anatomy scan scheduled for November Patient seen and evaluated with Dr Pierce and Dr García attending I saw & evaluated Dr Larry along with MFM fellow Dr Leal and director of strategy & mobile Dr García. Occasional palpitation (device interrogation showed a single 4-beat run VT in August), no dyspnea. MonitorsBP at home, none >130 systolic. 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 (Sumit Davies, 06/[birth year]/76) for relevant carrier testing. Agree with fellow's assessment/plan as outlined. LMP/EGA/EVY Gestational Age (EGA) and EVY * Note: EGA calculated as of 11/08/2022 EVY:04/28/2023EGA*:15 weeks 4 days Type:AuthoritativeMethod Date:07/22/2022 Method:Last Menstrual Period(07/22/2022) Confirmation:Confirmed Description:-- Comments:-- Entered by:JUAN LUIS Martinez Christine on 10/16/2022 Other EVY Calculations for this : No additional EVY calculations have been recorded for this OB History History(1,0,1,1) # 1 Baby 1 Outcome Date:2017 Outcome or Result: Gest Age:37 weeks Outcome:Live Sex:FemaleWt:1941 g Hospital:[facility] # 2 Baby 1 Outcome Date:2021 [...] (05/2019)D&C - Dilatation and curettage (12/21/2017) (12/11/2017) [place] tooth extraction (2007)uterine septum removal Medications acetaminophen, 1000 mg= 2 tab, PO, ONCE, PRN aprepitant(Emend), 40 mg= 1 cap, PO, ONCE enoxaparin(enoxaparin 60 mg/0.6 mL injectable solution), 50 mg, subQ, q12h, 3 refills ergocalciferol(Vitamin D2), See Instructions iron polysaccharide(Ferrex-150), 2 tab, PO, q48h metoprolol(Metoprolol Succinate ER 25 mg oral tablet, extended release), See Instructions multivitamin, ( 1 Plus 1 oral tablet), [...] Electronic Signature on File Electronically Reviewed/Signed by: Bette Leal MD Author Signature Dt/Tm:11/08/2022 12:49 PM Resident Division of Women's Health Electronically Reviewed/Signed by: Livia Pierce MD Cosigner Signature Dt/Tm: 11/08/2022 01:58 PM Division of Maternal Medicine EL Patient Care team information Care Team Personnel Name: DO Fortune Kristen M Position: Physician - Family Med Member Role: Primary Care Provider Address: Address: [address] [place] [address] [place] Name: RYAN Bergman Stacey L Position: Nurse Pract - Cardiology Member Role: Lifetime Relationship Address: Address: [address] [place] [address] Name: MD Bhatt Jansie Position: Physician - Anesthesiologist Member Role: Lifetime Relationship Address: Address: [address] [place] [address] [place] Care Team Related Persons Name: EWELINA LARRY Address: home [address] [facility], [phone] Name: REGINA LARRY Name: RACHEL DAVIES
--- OUTSIDE RECORDS SUMMARY | 2023-04-14 19:38 | External Medical Summary | Continuity of Care Document ---
Author Name Unknown Organization [place] [address] [address] STEWART Address [address] [facility] [address] [place] [phone] Care Team Providers Care Computer Graphic Artist Name Role Phone Chiara Fortune Primary Care Physician [phone] [facility] [id number] Date(s): 01/10/23 - 01/10/23 [place] [address] [address] [facility] Obstetrics and Gynecology [address] [place] [address], [address] [place] [address] [phone] Encounter Diagnosis 24 weeks gestation of (Discharge Diagnosis) - 01/10/23 Discharge Disposition: Home or Self Care Attending Physician: MD Laureen, Flo Rodríguez Referring Physician: MD Stan, Livia Phillips Allergies, Adverse Reactions, Alerts No Known Allergies [...] HOME DELIVERY Start Date: 08/22/22 Stop Date: 4/27/24 Status: Ordered IV iron Start: 12/20/22 14:38:00 EDT, IV iron Start Date: 12/20/22 Status: Ordered Lasix 20 mg oral tablet Start: 12/20/22 15:11:00 EDT, 0.5 tab, PO, Daily, Disp# 30 tab, Refills: 3, Pharmacy: [id number] Start Date: 12/20/22 Status: Ordered Metoprolol Succinate ER 25 mg oral tablet, extended release Start: 12/05/22 11:12:00 EDT, 1 tab, PO, Daily, Disp# 30 tab, Refills: 11, Pharmacy: [id number] Start Date: 12/05/22 Status: Ordered 1 Plus 1 oral tablet Start: 11/16/20 8:14:00 EDT, 1 tab, PO, Daily Start Date: 11/16/20 Status: Ordered Vitamin D2 Start: 12/10/18 15:57:00 EDT, See Instructions, 2 gummies daily Start Date: 12/10/18 Status: Ordered Mental Status 01/10/23 Barriers to Learning one year None evide nt Mandatory Health Literacy Documentation Yes Health Literacy Communication Barriers N ever Primary Language Macanese Problem List Condition Confirmation Course Effective Dates [...] Dates Health Status Cl inical Service Informant 24 weeks gestation of Discharge Diagnosis 01/10/23 Procedures Procedure Date Related Diagnosis Body Site Status Shave biopsy 1 09/15/20 Completed Cardioversion 2 10/01/19 Completed Pacemaker catheter, device 05/2019 Completed D&C - Dilatation and curettage 12/21/17 Completed 12/11/17 Completed [place] tooth extraction 2007 C ompleted uterine septum removal Co mpleted 1pelvic abdomen 2Underlying rhythm Afib with V Pacing Attempted CV with 200 joules x3 in sync biphasic mode without sikh of NSR Procedure aborted after three attempts Vital Signs Most recent to oldest [Reference Range]: 1 Height 162.5 cm (01/10/23 10:59 AM) Patient Weight 60.3 kg (01/10/23 10:59 AM) Body Mass Index 22.84 kg/m2 (01/10/23 10:59 AM) Blood Pressure 115/68mmHg (01/10/23 10:59 AM) Cuff Pulse Pressure 47 mmHg (01/10/23 10:59 AM) BP Location # 1 Left Arm (01/10/23 10:59 AM) Social History Social History Type Response Smoking Status Never smoked cigaret petra Sex Female Implantable Device List Procedure Provider Procedure Date Device Type Site Unknown Unknown 03/16/20 Unknown Unknown Device Identifier Serial Number Lot or Batch Number Manufacturing Date Expiration Date Distinct Identification Code MRI Safety Implantable Status Assigning Authority Unknown Unknown [id number] Unknown 02/20/22 Unknown Unknown Active Edink roderick Note * MD Tricia, Phong Gilbert: VERIFY, PERFORM Event Display: Report Authored Date: [id number] SERVICE(S) PROVIDED: Follow-up, single fetus [id number] INDICATIONS: 24 weeks gestation of Z3A.24 For growth Maternal heart condition FGR in prior SHEET HEATER: Technique: N/A EVALUATION: Num Of Fetuses: 1 Heart Rate(bpm): 144 Cardiac Activity: Present Presentation: Cephalic Placenta: Posterior Amniotic Fluid GUILLERMO FV: Within normal limits Largest Pocket(cm) 7.2 Comment: Heterogeneous placenta --------- BIOMETRY: --------- BPD: 59.5 mm G. Age: 24w 2d 32 % CI: 73.74 % 70 - 86 FL/HC: 20.3 % 18.7 - 20.3 HC: 220.1 mm G. Age: 24w 0d 14 % HC/AC: 1.09 1.04 - 1.22 AC: 202.7 mm G. Age: 24w 6d 51 % FL/BPD: 75.0 % 71 - 87 FL: 44.6 mm G. Age: 24w 5d 41 % FL/AC: 22.0 % 20 - 24 HUM: 37.3 mm G. Age: 23w 0d 7 % Est. FW: 725 gm 1 lb 10 oz 46 % GESTATIONAL AGE: LMP: 24w 4d Date: 07/22/22 EVY: 04/28/23 U/S Today: 24w 3d EVY: 04/29/23 Best: 24w 4d Det. By: LMP (07/22/22) EVY: 04/28/23 -------- ANATOMY: -------- Cranium: Appears WNL Stomach: On left, appears WNL Ventricles: Appears WNL Kidneys: Appear WNL Heart: [place] to left Bladder: Appears WNL Diaphragm: Appears WNL CERVIX UTERUS ADNEXA: Cervix Poorly seen due to late gestational age IMPRESSION: The estimated weight of 725 grams is at the 46 %ile. The DVP is 7.2 cm. Phong Clarke MD Electronically Signed Final Report 01/10/2023 10:43 am Patient Care team information Care Team Personnel Name: DO Fortune Kristen M Position: Physician - Family Med Member Role: Primary Care Provider Address: Address: [address] [place] [address] Name: RYAN Bergman Stacey L Position: Nurse Pract - Cardiology Member Role: Lifetime Relationship Address: Address: [address] [place] [address] [place] [address] [place] Name: MD Bhatt Jansie Position: Physician - Anesthesiologist Member Role: Lifetime Relationship Address: Address: [address] [place] [address] [place] [address] [place] Care Team Related Persons Name: REGINA LARRY Name: RACHEL DAVIES
--- OUTSIDE RECORDS SUMMARY | 2023-04-14 19:38 | External Medical Summary | Continuity of Care Document ---
Author Name Unknown Organization [facility] [address] [place] [address] EDIS SHELL [id number] Care Team Providers Care Submarine Worker Name Role Phone Chiara Fortune Vladimir Primary Care Physician [phone] Encounter [facility] [id number] Date(s): 01/10/23 - 01/10/23 [facility] KARY 600 [facility] [place] - [address], [address], [address] [place] [address] [phone] Discharge Disposition: Home or Self Care Attending Physician: MD Valle Soraya M Referring Physician: MD Valle Soraya M Allergies, Adverse Reactions, Alerts No Known [...] Daily, Disp# 30 tab, Refills: 3, Pharmacy: [id number] Start Date: 12/20/22 Status: Ordered Metoprolol Succinate ER 25 mg oral tablet, extended release Start: 12/05/22 11:12:00 EDT, 1 tab, PO, Daily, Disp# 30 tab, Refills: 11, Pharmacy: [id number] Start Date: 12/05/22 Status: [...] Dilatation and curettage 12/21/17 Completed 12/11/17 Completed [place] tooth extraction 2007 C ompleted uterine septum removal Co mpleted 1pelvic abdomen 2Underlying rhythm Afib with V Pacing Attempted CV with 200 joules x3 in sync biphasic mode without lutheran of NSR Procedure aborted after three attempts Social History Social History Type Response Smoking Status Never smoked cigaret petra Sex Female Implantable Device List Procedure Provider Procedure Date Device Type Site Unknown Unknown 03/16/20 Unknown Unknown Device Identifier Serial Number Lot or Batch Number Manufacturing Date Expiration Date Distinct Identification Code MRI Safety Implantable Status Assigning Authority Unknown Unknown [id number] Unknown 02/20/22 Unknown Unknown Active Unk nown Cardiology * Event Display: Cardiac Device Check Authored Date: [id number] Please click on link to see image. Patient Care team information Care Team Personnel Name: DO Fortune Kristen M Position: Physician - Family Med Member Role: Primary Care Provider Address: Address: [address] [place] [address] [place] Name: RYAN Bergman Stacey L Position: Nurse Pract - Cardiology Member Role: Lifetime Relationship Address: Address: [address] [place] [address] [place] Name: MD Bhatt Jansie Position: Physician - Anesthesiologist Member Role: Lifetime Relationship Address: Address: [address] [place] [address] [place] Care Team Related Persons Name: REGINA LARRY Name: RACHEL DAVIES
--- OUTSIDE RECORDS SUMMARY | 2023-04-14 19:38 | External Medical Summary | Continuity of Care Document ---
Author Name Unknown Organization [address] Address [address] [place] [id number] Care Team Providers Care Chemical Research Engineer Name Role Phone Chiara Fortune Primary Care Physician [phone] [id number] Date(s): 01/15/23 - 01/15/[address], [facility] [address] [place] [address] [place] [phone] Encounter Diagnosis Maternal care for (suspected) abnormality and damage, unspecified, not applicable or unspecified(Discharge Diagnosis) - 01/15/23 Discharge Disposition: Home or Self Care Attending Physician: MD Marium, Daryl Kilpatrick Referring Physician: MD Christie Elizabeth Allergies, Adverse Reactions, Alerts No Known Allergies [...] Disp# 30 tab, Refills: 3, Pharmacy: [id number] Start Date: 12/20/22 Status: Ordered Metoprolol Succinate ER 25 mg oral tablet, extended release Start: 12/05/22 11:12:00 EDT, 1 tab, PO, Daily, Disp# 30 tab, Refills: 11, Pharmacy: [facility] Start Date: 12/05/22 Status: Ordered 1 Plus 1 oral tablet Start: 11/16/20 8:14:00 EDT, 1 tab, PO, Daily Start Date: 11/16/20 Status: Ordered Vitamin D2 Start: 12/10/18 15:57:00 EDT, See Instructions, 2 gummies daily Start Date: 12/10/18 Status: Ordered Mental Status 01/15/23 Barriers to Learning one year None evide [...] Effective Dates Health Status Clinical Service Informant Maternal care for (suspected) abnormality and damage, unspecified, not applicable or unspecified Discharge Diagnosis 01/15/23 Non-Specified Procedures Procedure Date Related Diagnosis Body Site Status Shave biopsy 1 09/15/20 Completed Cardioversion 2 10/01/19 Completed Pacemaker catheter, device 05/2019 Completed D&C - Dilatation and curettage 12/21/17 Completed 12/11/17 Completed [place] tooth extraction 2007 C ompleted uterine septum removal Co mpleted 1pelvic abdomen 2Underlying rhythm Afib with V Pacing Attempted CV with 200 joules x3 in sync biphasic mode without anglican of NSR Procedure aborted after three attempts Results Radiology Reports * Exam Date Time Procedure Performing Provider Status 01/15/23 12:09 PM Peds Echo Complete. MD Marium, Daryl Kilpatrick; Final Notes: (Peds Echo Complete.) Reason For Exam: Maternal care for other (suspected) abnormality Peds Echo Complete Echocardiogram Report CINDY LARRY Exam Date:01/15/2023 11:20Ordering Phys:Daryl Causey (rtunks) ID:[id number] Referring Phys:Bette Christie : 1985 Site:[facility] Address: Age: 37 years GA: 25 4/7 weeks EVY: 04/28/2023 Technologist: RT Study: Peds Echo Complete Fax: care for other (suspected) abnormality Number ICD Codes: O35.9XX0 Technical Quality: Good Procedure Type: Echocardiogram Complete with Colorflow Doppler and Spectral Doppler FINDINGS - A Gestation Sanchez gestation. Position position is cephalic. Situs/Cardiac Position Levocardia. Situs solitus of atria and viscera. D-looped ventricles. Normally related great vessels. Veins Normal superior vena cava. Normal inferior vena cava. At least two pulmonary veins are seen returning to the left atrium by color Doppler. Normal pulmonary vein velocity. Atria Normal right atrial size. Normal left atrial size. Nonrestrictive ruysr-oz-pmax flow through the foramen ovale. Septum primum is normally positioned. AV Valves Normal tricuspid valve without stenosis. Mild tricuspid valve regurgitation. Normal mitral valve without stenosis or regurgitation. Ventricles Normal right ventricular size and systolic function. Normal left ventricular size and systolic function. The ventricular septum appears intact. No right or left ventricular outflow tract obstruction. Semilunar Valves Normal pulmonary valve. No pulmonary valve stenosis or insufficiency. Normal aortic valve. No aortic valve stenosis or insufficiency. Great Vessels Widely patent aortic arch with normal Doppler velocities. Left sided aortic arch. Widely patent ductal arch with normal Doppler velocities. Normal proximal branch pulmonary arteries. Fluid No pericardial or pleural effusions. Rhythm Regular heart rhythm. FHR: 130's-140's beats/minute. Normal 1:1 atrioventricular conduction. Mechanical DE interval = 116 msec. Umbilical Cord Normal umbilical artery and vein Doppler flow profile. 3 Vessel umbilical cord. Normal ductus venosus. Extracardiac middle cerebral artery Doppler assessment was performed. BIOMETRY - A BPD (cm): 6.3 Cardiac Circ (cm): 7.2 Thoracic Circ (cm):16 C/T Ratio: 0.45 DOPPLER FINDINGS - A Umbilical Artery S/D Ratio:3.8 IMPRESSIONS - A - echocardiogram performed at 25 weeks gestation. - Structurally normal heart. No evidence of major congenital heart disease is detected. - Mild tricuspid valve insufficiency. - Normal biventricular systolic function. - No effusions. RECOMMENDATIONS Interpretation and results of the echo were discussed with the patient in detail today. A complete cardiology consult note is available under separate cover. Please see this note for further details. Dr. Daryl Causey MD (Electronically Signed) Final Date:17 January 2023 12:52 Final Signed by:MD Marium, Daryl Kilpatrick Signed (Electronic Signature):01/17/2023 12:52 Vital Signs Most recent to oldest [Reference Range]: 1 Height 164.4 cm (01/15/23 11:00 AM) Patient Weight 59.8 kg (01/15/23 11:00 AM) Body Mass Index 22.13 kg/m2 (01/15/23 11:00 AM) Temperature [36.5-37.9 DegC] 36.7 DegC (01/15/23 11:00 AM) Blood Pressure 114/62mmHg (01/15/23 11:00 AM) Cuff Pulse Pressure 52 mmHg (01/15/23 11:00 AM) Social History Social History Type Response Smoking Status Never smoked cigaret petra Sex Female Implantable Device List Procedure Provider Procedure Date Device Type Site Unknown Unknown 03/16/20 Unknown Unknown Device Identifier Serial Number Lot or Batch Number Manufacturing Date Expiration Date Distinct Identification Code MRI Safety Implantable Status Assigning Authority Unknown Unknown [id number] Unknown 02/20/22 Unknown Unknown Active Jamee vaughn Patient Care team information Care Team Personnel Name: DO Fortune Kristen M Position: Physician - Family Med Member Role: Primary Care Provider Address: Address: [address] [facility] [address] [place] [address] [place] Name: RYAN Bergman Stacey L Position: Nurse Pract - Cardiology Member Role: Lifetime Relationship Address: Address: [address] [facility] [place] [address] [place] Name: MD Bhatt Jansie Position: Physician - Anesthesiologist Member Role: Lifetime Relationship Address: Address: [address] [place] [address], [place] [address] [place] Care Team Related Persons Name: REGINA LARRY Name: RACHEL DAVIES
--- OUTSIDE RECORDS SUMMARY | 2023-04-14 19:38 | External Medical Summary | Continuity of Care Document ---
Author Name Unknown Organization [place] [address] [address]EWART Address [address] [place] [address] [address] [place], [place] [id number] Care Team Providers Care Nurse Name Role Phone Devika Chiara M Primary Care Physician [phone] [facility] [id number] Date(s): 10/18/22 - 10/18/22 [place] [address] [address] PRESTON [facility] [address] [place] [address], [address] [place] [address] [phone] Encounter Diagnosis 12 weeks gestation of (Discharge Diagnosis) - 10/18/22 Advanced maternal age in multigravida(Discharge Diagnosis) - 10/18/22 Cardiomyopathy(Discharge Diagnosis) - 10/18/22 Complete heart block(Discharge Diagnosis) - 10/18/22 Discharge Disposition: Home or Self Care Attending Physician: MD Tricia, Phong Gilbert Referring Physician: HAILEY Mejia Elaine Y Allergies, Adverse Reactions, Alerts No Known Allergies [...] MOUTH EVERY DAY AT BEDTIME, Pharmacy: [id number] Start Date: 06/11/22 Status: Ordered 1 Plus 1 oral tablet Start: 11/16/20 8:14:00 EDT, 1 tab, PO, Daily Start Date: 11/16/20 Status: Ordered Vitamin D2 Start: 12/10/18 15:57:00 EDT, See Instructions, 2 gummies daily Start Date: 12/10/18 Status: Ordered Mental Status 10/18/22 Barriers to Learning one year None evide nt Mandatory Health Literacy Documentation Yes Health Literacy Communication Barriers N ever Primary Language Hong Konger Problem List Condition Confirmation Course Effective Dates [...] Effective Dates Health Status Clinical Service Informant Advanced maternal age in multigravida Discharge Diagnosis 10/18/22 12 weeks gestation of Discharge Diagnosis 10/18/22 Cardiomyopathy Discharge Diagnosis 10/18/22 Complete heart block Discharge Diagnosis 10/18/22 Procedures Procedure Date Related Diagnosis Body Site Status Shave biopsy 1 09/15/20 Completed Cardioversion 2 10/01/19 Completed Pacemaker catheter, device 05/2019 Completed D&C - Dilatation and curettage 12/21/17 Completed 12/11/17 Completed [place] tooth extraction 2007 C ompleted uterine septum removal Co mpleted 1pelvic abdomen 2Underlying rhythm Afib with V Pacing Attempted CV with 200 joules x3 in sync biphasic mode without samaritan of NSR Procedure aborted after three attempts Vital Signs Most recent to oldest [Reference Range]: 1 Patient Weight 54.1 kg (10/18/22 11:01 AM) Blood Pressure 151/74mmHg (10/18/22 11:01 AM) Cuff Pulse Pressure 77 mmHg (10/18/22 11:01 AM) BP Location # 1 Right Arm (10/18/22 11:01 AM) Social History Social History Type Response Smoking Status Never smoked cigaret petra Sex Female Implantable Device List Procedure Provider Procedure Date Device Type Site Unknown Unknown 03/16/20 Unknown Unknown Device Identifier Serial Number Lot or Batch Number Manufacturing Date Expiration Date Distinct Identification Code MRI Safety Implantable Status Assigning Authority Unknown Unknown [id number] Unknown 02/20/22 Unknown Unknown Active Unk nown MFM Consult * MD Tricia, Phong Gilbert: ASHLEIGH Leal MD, Bette: PERFORM Event Display: MFM Consult Authored Date: [id number] Chief Complaint New Consult History of Present Illness Dear Ms. Mejia, Thank you for the kindness of your referral. 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 She is feeling well and without complaint today. Reports a little bit of increased dyspnea since becoming , but denies palpitations or chest pain and is breathing comfortably today. 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 Her daughter was 4lb 4oz at and is healthy now. Following that, shewas found to have ventricular noncompaction and dilated right heart with severe tricuspid regurgitation and mild pulmonary hypertension. She had a TIA in 2019 due to atrial fibrillation and a pacemaker was placed in 2019 (Medtronic MRI compatible). She follows with Dr. Lynn and was last seen in April 2021. She also reports iron deficiency anemia secondary to menorrhagia, since having started anticoagulation therapy. She takes Eliquis outside of but is on Lovenox now. 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 Lynn, she is doing remarkably well.He did credit counselor her that she could anticipate increasing her blood volume by 20-50% as well asincreased heart rate, stroke volume and cardiac output,but he also explained that regurgitant valvular lesions tend to be relatively well tolerated in preg becky. We did also discuss the mild pulmonary hypertension as being an additional potential risk factor, but this does not seem to be a significant concern for her at this time, as it is likelya result of right heart enlargement as opposed to an intrinsic pulmonary arterial disorder. She has an appointment with Dr Lynn in November and believes that the plan is for maternal echo atthat time. Anjali will continueher Lovenoxthrough the and the period, although it will be held for delivery. The plan is also for her to remain on low-dose beta blockers.She will continue to follow in device clinic and she will also be closely followed by Dr Lynn and/or in the cardio OB clinic (we did discuss the fact that we are creating a cardiac OB center here at [facility] that has its own clinic and offered to considerseeing her in this clinic. We did discuss the fact that beta blockers are commonly used in and not thought to cause any increased risk of defects, but can cause / bradycardia and can also increase the baby's risk of hypoglycemia in the period. We did also discuss her increased risk of cardiac events during , including heart failure,arrhythmia, stroke and , but reassured her that it seems more likely that her will be successful. Wediscussed today thather carewill involvefetal growth surveillanceandantepartum testing, and mayrequire inpatient care and/or delivery depending on maternal status. We also suggest an anesthesia consult in the third trimester. She lives in [place] and had been cautioned in the past that it may make sense to relocate to [place] towards the end of the , although she may feel that commuting for visits makes more sense for her. Non-compaction cardiomyopathy tends tohave anautosomal dominant or possibly x-linked recessive inheritance pattern.Anjali reports that she did have genetics testing related to her heart disease a couple of years ago and nothing specific was found. However, we didoffer genetics consult, which she declined. She states that she does not think that knowing that this condition could be inherited by her children would change her plans at all. We did recommend echo in any case. elevated BP Dr Larry does not have a diagnosis of CHTN at this time, although she is unsure whether she is taking Metoprolol for her blood pressure or her heart rate. We discussed that her blood pressure was elevated today, although she believes that that may be due to anxiety or the luna of getting to her appointment. We explained that she may require antihypertensives if her BPs were toremain above 140/90. Anemia Ms. Larry is being followed by Dr. Rodgers. We would recommend continued management as per hematology. h/o GHTN vs preeclampsia in her G1 We did discuss ASA 81mg daily at 12 weeks of for preeclampsia risk reduction but will discuss this with cardiology, given the fact that she is also taking therapeutic Lovenox. We would also suggest baseline preeclampsia labs and 24 hour urine. h/o prior CD for breech Dr. Larry is open to either repeat delivery or TOLAC. She would follow the advice ofher medical team as she gets closer to delivery and simply wants the safest option. Per the MFMU calculator, Anjali's chance of successful is 69.4%without a diagnosis of HTN and46.3% if oneconsiders her Metoprolol an antihypertensive. After explaining this to the patient, she plans fora repeat delivery. s/p uterine septum removal We recommend cervical length screening at the time of her anatomy scan AMA Discussed with the patient that AMA is defined as greater than 35 years old a time of delivery. Shewas informed that there is an increased risk of chromosomal abnormalities and anomalies. She does desire cell free DNA testing and extended carrier screening. Furthermore, we discussed the increased risk of maternal complications including preeclampsia, gestational diabetes, labor, FGR, and section. Delivery Plan The goal for her delivery will be a scheduledcesarean sectionat 39 weeks, although complications may develop that necessitate early delivery Thank you for allowing us to participate in the care of this interesting patient. She was welcomed into [facility] practice today. She was seen and counseled with Dr. Clarke. Bette Leal MD [facility] Fellow Dear Ms. Mejia, Thank you for sending your patient for [facility] transfer of care, kurt Leal and I saw and evaluated ,Anjali Larry,I have reviewed the resident/fellow note and agree with their findings and plan as above . Dr. Leal and I spent30 minutes in face toface evaluation and another 40 minutes reviewing records and labs for a total time of 60 minutes onthe clinical problem of with cardiomyopathy. Phong Clarke MD Delivery Plan 39 weeks, patient will choose repeat ceasarean section. LMP/EGA/EVY Gestational Age (EGA) and EVY * Note: EGA calculated as of 10/18/2022 EVY:04/28/2023EGA*:12 weeks 4 days Type:AuthoritativeMethod Date:07/22/2022 Method:Last Menstrual Period(07/22/2022) Confirmation:Confirmed Description:-- Comments:-- Entered by:JUAN LUIS Martinez, Aimee on 10/16/2022 Other EVY Calculations for this : No additional EVY calculations have been recorded for this OB History History(1,0,1,1) # 1 Baby 1 Outcome Date:2017 Outcome or Result: Gest Age:37 weeks Outcome:Live Sex:FemaleWt:1941 g [facility] # 2 Baby 1 Outcome [...] (05/2019)D&C - Dilatation and curettage (12/21/2017) (12/11/2017) [place] tooth extraction (2007)uterine septum removal Medications acetaminophen, [...] MGM and PGF. Health Status Family Member(s) Lab Results Test Name Test Result Date/Time WBC-PIT 8.2 thou/mcL 09/26/2022 10:55 EDT Hgb-PIT 10.3 g/dL 09/26/2022 10:55 EDT Hct-PIT 32.2 % 09/26/2022 10:55 EDT Plts-PIT 220 thou/mcL 09/26/2022 10:55 EDT Transferrin-PIT 436 mg/dL 09/26/2022 10:55 EDT Ferritin-PIT 10 ng/mL 09/26/2022 10:55 EDT Fe Sat-PIT 13 % (calc) 09/26/2022 10:55 EDT Radiology Results EVALUATION: Num Of Fetuses: 1 Preg. Location: Intrauterine Gest. Sac: Intrauterine Yolk Sac: Visualized Pole: Visualized, intrauterine Heart Rate(bpm): 181 Cardiac Activity: Present Presentation: Not applicable --------- BIOMETRY: --------- CRL: 27.5 mm G. Age: 9w 4d EVY: 04/25/23 GESTATIONAL AGE: LMP: 9w 1d Date: 07/22/22 EVY: 04/28/23 Best: 9w 1d Det. By: LMP (07/22/22) EVY: 04/28/23 CERVIX UTERUS ADNEXA: Cervix Appears WNL Uterus Normal shape and size Right Ovary Size(cm) 2.04 x 2.99 x 2.59 Vol(ml): 8.27 Visualized, appears normal Left Ovary Not adequately visualized, No adnexal masses seen Cul De Sac No fluid Adnexa No maternal adnexal mass evident IMPRESSION: Single live intrauterine with cardiac activity demonstrated. Phong Clarke MD Electronically Signed Final Report 09/24/2022 11:46 am Electronic Signature on File CC: Laura Mejia, CNM [address] [facility] [address] [facility] [address] CC: Sai Lynn DO [address] [facility] [address] [facility] [address] Electronically Reviewed/Signed by: Bette Leal MD Author Signature Dt/Tm:10/18/2022 12:48 PM Resident Division of Women's Health Electronically Reviewed/Signed by: Phong Clarke MD Cosigner Signature Dt/Tm: 10/18/2022 04:03 PM Division of Maternal Medicine EL Patient Care team information Care Team Personnel Name: MD Drew Daniel Position: Resident Member Role: Lifetime Relationship Address: Address: [address] [facility] [address] [place] [address] [place] Name: DO Fortune Kristen M Position: Physician - Family Med Member Role: Primary Care Provider Address: Address: [address] [facility] [address] [place] [address] [place] Name: RYAN Bergman Stacey L Position: Nurse Pract - Cardiology Member Role: Lifetime Relationship Address: Address: [address] [facility] [place] [address] [place] Name: MD Bhatt Jansie Position: Physician - Anesthesiologist Member Role: Lifetime Relationship Address: Address: [address] [place] [address] [place] Care Team Related Persons Name: EWELINA LARRY Address: home [address] [facility], [phone] Name: REGINA LARRY Name: RACHEL DAVIES
--- OUTSIDE RECORDS SUMMARY | 2023-04-14 19:38 | External Medical Summary | Continuity of Care Document ---
Author Name Unknown Organization [facility] [address] Address [address] [place], [place] [id number] Care Team Providers Care Glass Furnace Tender Name Role Phone Chiara Fortune Primary Care Physician [phone] [address]counter [facility] [id number] Date(s): 01/03/23 - 01/03/23 [facility] [address] [facility] 303 [facility] 1 [place], [place] [phone] Discharge Disposition: Home or Self Care Attending [...] Disp# 180 pen_needle, Refills: 3, [facility]acy: [facility] Start Date: 08/22/22 Stop Date: 08/17/23 Status: Ordered IV iron Start: 12/20/22 14:38:00 EDT, IV iron Start Date: 12/20/22 Status: Ordered Lasix 20 mg oral tablet Start: 12/20/22 15:11:00 EDT, 0.5 tab, PO, Daily, Disp# 30 tab, Refills: 3, Pharmacy: [id number] Start Date: 12/20/22 Status: Ordered Metoprolol Succinate ER 25 mg oral tablet, extended release Start: 12/05/22 11:12:00 EDT, 1 tab, PO, Daily, Disp# 30 tab, Refills: 11, Pharmacy: [id number] Start Date: 12/05/22 Status: [...] Dilatation and curettage 12/21/17 Completed 12/11/17 Completed [place] tooth extraction 2007 C ompleted uterine septum removal Co mpleted 1pelvic abdomen 2Underlying rhythm Afib with V Pacing Attempted CV with 200 joules x3 in sync biphasic mode without sikhism of NSR Procedure aborted after three attempts Results Most recent to oldest [Reference Range]: 1 WBC Count-[facility] [3.8-10.8 Thousand/uL] 7 .8 Thousand/uL 1 (01/03/23 8:52 AM) Iron-[facility] [40-190 mcg/dL] 103 mcg/dL 2 (01/03/23 8:52 AM) Total IBC-[facility] [250-450 mcg/dL (calc)] 481 mcg/dL (calc) 3 *HI* (01/03/23 8:52 AM) Fe Sat-[facility] [16-45 % (calc)] 21 % (calc ) 4 (01/03/23 8:52 AM) Transferrin-[facility] [188-341 mg/dL] 356 mg /dL 5 *HI* (01/03/23 8:52 AM) Retic Count, Auto-[facility] 2.0 % 6 (01/03/23 8:52 AM) Retic Abs-[facility] [06096-[address]267 cells/uL] 6 2800 cells/uL 7 (01/03/23 8:52 AM) MPV-[facility] [7.5-12.5 fL] 11.9 fL 8 (01/03/23 8:52 AM) Absolute Neutrophils-[facility] [6452-0545 ce lls/uL] 6295 cells/uL 9 (01/03/23 8:52 AM) Absolute Lymphocytes-[facility] [850-3900 cece ls/uL] 858 cells/uL 10 (01/03/23 8:52 AM) Absolute Monocytes-[facility] [200-950 cells/ uL] 569 cells/uL 11 (01/03/23 8:52 AM) Absolute Eosinophils-[facility] [15-500 cells /uL] 47 cells/uL 12 (01/03/23 8:52 AM) Absolute Basophils-[facility] [0-200 cells/uL ] 31 cells/uL 13 (01/03/23 8:52 AM) Neutrophils-Quest 80.7 % 14 (01/03/23 8:52 AM) Lymphocytes-[facility] 11.0 % 15 (01/03/23 8:52 AM) Monocytes-[facility] 7.3 % 16 (01/03/23 8:52 AM) Eosinophils-[facility] 0.6 % 17 (01/03/23 8:52 AM) Basophils-[facility] 0.4 % 18 (01/03/23 8:52 AM) Hemoglobin Refl [11.7-15.5 g/dL] 9.6 g/d L 19 *LOW* (01/03/23 8:52 AM) Hematocrit Refl [35.0-45.0 %] 29.7 % 20 *LOW* (01/03/23 8:52 AM) RBC Refl [3.80-5.10 Million/uL] 3.14 Mil lion/uL 21 *LOW* (01/03/23 8:52 AM) MCV Refl [80.0-100.0 fL] 94.6 fL 22 (01/03/23 8:52 AM) MCH Refl [27.0-33.0 pg] 30.6 pg 23 (01/03/23 8:52 AM) RDW Refl [11.0-15.0 %] 14.6 % 24 (01/03/23 8:52 AM) MCHC (QST) [32.0-36.0 g/dL] 32.3 g/dL 25 (01/03/23 8:52 AM) Ferritin (QST) [16-154 ng/mL] 237 ng/mL 26 *HI* (01/03/23 8:52 AM) Platelet Count [140-400 Thousand/uL] 166 Thousand/uL 27 (01/03/23 8:52 AM) 1Result Comment: Specimen Received d/t: 01/04/2023 01:50:00 Lab test performed by: [facility] [employer] [address] [place] [address]Radha Botello MD 2Result Comment: Specimen Received d/t: 01/04/2023 01:50:00 Lab test performed by: [facility] [address] [place] Jessica Botello MD 3Result Comment: Specimen Received d/t: 01/04/2023 01:50:00 Lab test performed by: [facility] [address] [place] Jessica Botello MD 4Result Comment: Specimen Received d/t: 01/04/2023 01:50:00 Lab test performed by: [facility] [address] [place] Jessica Botello MD 5Result Comment: Your request to have a duplicate copy faxed has been acknowledged. Queued to: [phone] Specimen Received d/t: 01/04/2023 01:50:00 Lab test performed by: [facility] [address] [place] [address]Radha Botello MD 6Result Comment: Specimen Received d/t: 01/04/2023 01:50:00 Lab test performed by: [facility] [address] [place] [address] Hugo Botello MD 7Result Comment: Specimen Received d/t: 01/04/2023 01:50:00 Lab test performed by: [facility] [employer] [address] [place] [phone] Hugo Botello MD 8Result Comment: Specimen Received d/t: 01/04/2023 01:50:00 Lab test performed by: [facility] [employer] [address] [place] [phone] Botello MD 9Result Comment: Specimen Received d/t: 01/04/2023 01:50:00 Lab test performed by: [facility] [employer] [address] [place] [phone] Botello MD 10Result Comment: Specimen Received d/t: 01/04/2023 01:50:00 Lab test performed by: [facility] [employer] [address] [place] [phone] Botello MD 11Result Comment: Specimen Received d/t: 01/04/2023 01:50:00 Lab test performed by: [facility] [employer] [address] [place] [phone] Botello MD 12Result Comment: Specimen Received d/t: 01/04/2023 01:50:00 Lab test performed by: [facility] [employer] [address] [place] [address]Radha Botello MD 13Result Comment: Specimen Received d/t: 01/04/2023 01:50:00 Lab test performed by: [facility] [address] [place] [address]Radha Botello MD 14Result Comment: Specimen Received d/t: 01/04/2023 01:50:00 Lab test performed by: [facility] [address] [place] [address]Radha Botello MD 15Result Comment: Specimen Received d/t: 01/04/2023 01:50:00 Lab test performed by: [facility] [address] [place] [address]Gordon Botello MD 16Result Comment: Specimen Received d/t: 01/04/2023 01:50:00 Lab test performed by: [facility] [address] [place] [address]Gordon Botello MD 17Result Comment: Specimen Received d/t: 01/04/2023 01:50:00 Lab test performed by: [facility] [address] [place] [address]Radha Botello MD 18Result Comment: Specimen Received d/t: 01/04/2023 01:50:00 Lab test performed by: [facility] [address] [place] [address]Radha Botello MD 19Result Comment: Specimen Received d/t: 01/04/2023 01:50:00 Lab test performed by: [facility] [address] [place] [address]Radha Botello MD 20Result Comment: Specimen Received d/t: 01/04/2023 01:50:00 Lab test performed by: [facility] [address] [place] [address]Radha Botello MD 21Result Comment: Specimen Received d/t: 01/04/2023 01:50:00 Lab test performed by: [facility] [address] [place] [address] Hugo Botello MD 22Result Comment: Specimen Received d/t: 01/04/2023 01:50:00 Lab test performed by: [facility] [address] [place] [address] Hugo Botello MD 23Result Comment: Specimen Received d/t: 01/04/2023 01:50:00 Lab test performed by: [facility] [address] [place] [address] Hugo Botello MD 24Result Comment: Specimen Received d/t: 01/04/2023 01:50:00 Lab test performed by: [facility] [address] [place] [address] Hugo Botello MD 25Result Comment: Specimen Received d/t: 01/04/2023 01:50:00 Lab test performed by: [facility] [address] [place] [address] Hugo Botello MD 26Result Comment: Specimen Received d/t: 01/04/2023 01:50:00 Lab test performed by: [facility] [address] [place] [address] Hugo Botello MD 27Result Comment: Specimen Received d/t: 01/04/2023 01:50:00 Lab test performed by: [facility] [address] [place] [address] Hugo Botello MD Social History Social History Type Response Smoking Status Never smoked cigaret petra Sex Female Implantable Device List Procedure Provider Procedure Date Device Type Site Unknown Unknown 03/16/20 Unknown Unknown Device Identifier Serial Number Lot or Batch Number Manufacturing Date Expiration Date Distinct Identification Code MRI Safety Implantable Status Assigning Authority Unknown Unknown [id number] Unknown 02/20/22 Unknown Unknown Active Edink antionen Patient Care team information Care Team Personnel Name: DO Fortune Kristen M Position: Physician - Family Med Member Role: Primary Care Provider Address: Address: [address] [facility] [address] [place] [address] [place] Name: RYAN Bergman Stacey L Position: Nurse Pract - Cardiology Member Role: Lifetime Relationship Address: Address: [address] [facility] [address] [place], [place] [address] [place] Name: MD Bhatt Jansie Position: Physician - Anesthesiologist Member Role: Lifetime Relationship Address: Address: [address] [facility] [place] [address] [place] Care Team Related Persons Name: EWELINA LARRY Address: home [address] [facility], [id number] Name: REGINA LARRY Name: RACHEL DAVIES
--- OUTSIDE RECORDS SUMMARY | 2023-04-14 19:38 | External Medical Summary | Continuity of Care Document ---
Author Name Unknown Organization [address] Address [address] [place] [id number] Care Team Providers Care Pot Room Tapper Name Role Phone Chiara Fortune Primary Care Physician [phone] Encounter [facility] [id number] Date(s): 11/02/22 - 11/02/[address], [address] [place] [address] [phone] Discharge Disposition: Home or Self Care Attending Physician: DO Lynn Jason D Referring Physician: DO Lynn Jason D Allergies, Adverse [...] MOUTH EVERY DAY AT BEDTIME, Pharmacy: [id number] Start Date: 06/11/22 Status: [...] Dilatation and curettage 12/21/17 Completed 12/11/17 Completed [place] tooth extraction 2007 C ompleted uterine septum removal Co mpleted 1pelvic abdomen 2Underlying rhythm Afib with V Pacing Attempted CV with 200 joules x3 in sync biphasic mode without amish of NSR Procedure aborted after three attempts Social History Social History Type Response Smoking Status Never smoked cigaret petra Sex Female Implantable Device List Procedure Provider Procedure Date Device Type Site Unknown Unknown 03/16/20 Unknown Unknown Device Identifier Serial Number Lot or Batch Number Manufacturing Date Expiration Date Distinct Identification Code MRI Safety Implantable Status Assigning Authority Unknown Unknown [id number] Unknown 02/20/22 Unknown Unknown Active Edink antionen Patient Care team information Care Team Personnel Name: DO Fortune Kristen M Position: Physician - Family Med Member Role: Primary Care Provider Address: Address: [address] [place] [address] [place] Name: RYAN Bergman Stacey L Position: Nurse Pract - Cardiology Member Role: Lifetime Relationship Address: Address: [address] [facility] [place] [address] [place] Name: MD Bhatt Jansie Position: Physician - Anesthesiologist Member Role: Lifetime Relationship Address: Address: [address] [place] [address] [place] [address] Care Team Related Persons Name: EWELINA LARRY Address: home [address] [facility], [id number] Name: REGINA LARRY Name: RACHEL DAVIES
--- OUTSIDE RECORDS SUMMARY | 2023-04-14 19:38 | External Medical Summary | Continuity of Care Document ---
Author Name Unknown Organization [place] [address] [address] Address [address] [place] [address] [address] [place] [id number] Care Team Providers Care Power Line Lineman Name Role Phone DevikaChiara Vladimir Primary Care Physician [phone] Encounter [facility] [id number] Date(s): 10/16/22 - 10/16/22 [place] [address] [facility]ne[facility] [address] [place] [address], [address] [place] [address] [phone] Encounter Diagnosis (Discharge Diagnosis) - 10/16/22 Discharge Disposition: Home or Self Care Attending Physician: RYAN Crain Eleanor A Allergies, Adverse Reactions, Alerts No Known Allergies [...] BY MOUTH EVERY DAY AT BEDTIME, Pharmacy: [facility] Start Date: 06/11/22 Status: Ordered 1 Plus 1 oral tablet Start: 11/16/20 8:14:00 EDT, 1 tab, PO, Daily Start Date: 11/16/20 Status: Ordered Vitamin D2 Start: 12/10/18 15:57:00 EDT, See Instructions, 2 gummies daily Start Date: 12/10/18 Status: Ordered Mental Status 10/16/22 Communication Barrier Present No Health Literacy Communication Barriers N ever Primary Language Monegasque Problem List Condition Confirmation Course Effective Dates [...] Status Clini cathleen Service Informant Discharge Diagnosis 10/16/22 Non-Specified Procedures Procedure Date Related Diagnosis Body Site Status Shave biopsy 1 09/15/20 Completed Cardioversion 2 10/01/19 Completed Pacemaker catheter, device 05/2019 Completed D&C - Dilatation and curettage 12/21/17 Completed 12/11/17 Completed [place] tooth extraction 2007 C ompleted uterine septum removal Co mpleted 1pelvic abdomen 2Underlying rhythm Afib with V Pacing Attempted CV with 200 joules x3 in sync biphasic mode without judaism of NSR Procedure aborted after three attempts Vital Signs Most recent to oldest [Reference Range]: 1 Height 160 cm (10/16/22 10:40 AM) Patient Weight 52 kg (10/16/22 10:40 AM) Body Mass Index 20.31 kg/m2 (10/16/22 10:40 AM) Social History Social History Type Response Smoking Status Never smoked cigaret petra Sex Female Implantable Device List Procedure Provider Procedure Date Device Type Site Unknown Unknown 03/16/20 Unknown Unknown Device Identifier Serial Number Lot or Batch Number Manufacturing Date Expiration Date Distinct Identification Code MRI Safety Implantable Status Assigning Authority Unknown Unknown [id number] Unknown 02/20/22 Unknown Unknown Active Unk nown Patient Care team information Care Team Personnel Name: MD Viki, Noel Position: Resident Member Role: Lifetime Relationship Address: Address: [address] [facility] [place] [place] [address] [place] [address] Name: DO Fortune Kristen M Position: Physician - Family Med Member Role: Primary Care Provider Address: Address: [address] [facility] [address] [place] [address] Name: RYAN Bergman Stacey L Position: Nurse Pract - Cardiology Member Role: Lifetime Relationship Address: Address: [address] [facility] [place] [address] Name: MD Nova, Sara Position: Physician - Anesthesiologist Member Role: Lifetime Relationship Address: Address: [address] [place] [address] [place] Care Team Related Persons Name: EWELINA LARRY Address: home [address] [facility], [id number] Name: REGINA LARRY Name: RACHEL DAVIES
--- OUTSIDE RECORDS SUMMARY | 2023-04-14 19:38 | External Medical Summary | Continuity of Care Document ---
Author Name Unknown Organization [place] [address] NAKITA Munson Address [address] [place] [phone] Care Team Providers Care Branch Billing Payroll Clerk Name Role Phone Chiara Fortune Primary Care Physician [phone] Encounter [facility] [id number] Date(s): 12/03/22 - 12/03/22 [facility] [address], [address] [place] [address] [phone] Discharge Disposition: Home or Self Care Attending Physician: DO Jaeger James Referring Physician: DO Jaeger James Allergies, Adverse Reactions, Alerts No Known Allergies [...] Disp# 180 pen_needle, Refills: 3, Pharmacy: [facility] Start Date: 08/22/22 Stop Date: 08/17/23 Status: Ordered [id number] Start: 11/16/20 8:14:00 EDT, 2 tab, PO, q48h Start Date: 11/16/20 Status: Ordered Metoprolol Succinate ER 25 mg oral tablet, extended release Start: 12/05/22 11:12:00 EDT, 1 tab, PO, Daily, Disp# 30 tab, Refills: 11, Pharmacy: [id number] Start Date: 12/05/22 Status: [...] Dilatation and curettage 12/21/17 Completed 12/11/17 Completed [place] tooth extraction 2007 C ompleted uterine septum removal Co mpleted 1pelvic abdomen 2Underlying rhythm Afib with V Pacing Attempted CV with 200 joules x3 in sync biphasic mode without anabaptist of NSR Procedure aborted after three attempts Results Radiology Reports * Exam Date Time Procedure Performing Provider Status 12/03/22 4:51 PM Echo TransTHORacic TTE Complete Saturday Natalie; Final Notes: (Echo TransTHORacic TTE Complete) Reason For Exam: assess LV function, non compaction cardiomyopathy Echo TransTHORacic TTE Complete Report Signatures Finalized by Dr. Sai Lynn MD on 12/04/2022 02:07 PM [place] Act 112: Yes - Discussed with patient Summary 1. Normal left ventricular size. 2. [...] performed 11/02/2022, there is no significant change. Patient Info Name: CINDY LARRY Age: 37 years : 1985 Gender: Female Ht: 160 cm Wt: 56 kg BSA: 1.58 m2 HR: 72 bpm BP: 126 / 72 mmHg Heart Rhythm: V-Paced Technical Quality: Good Exam Date: 12/03/2022 4:07 PM Exam Location: [facility] Patient Status: Outpatient Staff Ordering Physician: Maikol Jaeger Industrial Hygiene Engineer: Natalie Plasencia RDCS, T Attending Physician: [facility]ol [facility] (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 Exam Type: Cardiac Basic Left Atrium Severely dilated left atrium. Right Atrium Markedly dilated right atrium. Device lead noted in RA. Atrial Septum Appears intact (negative bubble study performed 01/12/2019). Hepatic Veins Hepatic vein systolic flow reversal, secondary to tricuspid regurgitation. Pericardium/Pleural No pericardial effusion. Inferior Vena Cava Dilated IVC with reduced (less than 50%) collapse. Aorta Normal aortic root, ascending aorta and aortic arch. Left Ventricular Outflow Tract Name Value Normal LVOT 2D LVOT Diameter 2.0 cm LVOT Doppler LVOT Peak Velocity 1.09 m/s LVOT Mean Gradient 2 mmHg LVOT VTI 19.30 cm LVOT Stroke Volume 60.95 ml LVOT Stroke Volume Index 0.04 l/m2 LVOT Cardiac Output 4.39 l/min LVOT Cardiac Index 2.78 L/min/m2 Pulmonic Valve Name Value Normal PV 2D RVOT Diameter (2D) 2.2 cm 1.7-2.7 RVOT Doppler RVOT Peak Velocity 0.66 m/s PV Doppler PV Peak Velocity 0.73 m/s PV Regurgitation Doppler LA Peak Velocity 2.13 m/s Mitral Valve Name Value Normal MV Doppler MV PHT 80 ms MV Regurgitation Doppler MR Peak Velocity 4.74 m/s MR Peak Gradient 90 mmHg MR VTI 152.27 cm MV Diastolic Function MV E Peak Velocity 0.89 m/s <=0.50 MV Decel Time 276 ms MV Annular TDI MV Septal s' Velocity 13.61 cm/s MV Septal e' Velocity 23.31 cm/s >=7.00 MV E/e' (Septal) 3.8 <=8.0 MV Lateral s' Velocity 7.04 cm/s MV Lateral e' Velocity 7.89 cm/s >=10.00 MV E/e' (Lateral) 11.30 <=8.00 MV e' Average 15.60 MV E/e' (Average) 7.56 <=14.00 Tricuspid Valve Name Value Normal TV Regurgitation Doppler TR Peak Velocity 2.08 m/s <=2.80 TR Peak Gradient 15 mmHg Estimated PAP/RSVP RA Pressure 15 mmHg <=5 PA Systolic Pressure 32 mmHg <40 PA Mean Pressure (LA Velocity) 33 mmHg TV Diastolic Function TV E Peak Velocity 0.87 m/s TV Decel Time 216 ms >=120 TV Annular TDI TV Lateral Crissy s' Velocity 11.3 cm/s 9.5-18.7 TV Lateral Crissy e' Velocity 17.7 cm/s <7.8 TV E/e' 4.91 2.00-6.00 Aorta Name Value Normal Ascending Aorta Sinus of Valsalva Diameter 2.7 cm 2.7-3.3 Sinus of Valsalva Index 1.69 cm/m2 1.60-2.00 Prox Asc Ao Diameter 2.8 cm 2.3-3.1 Prox Asc Ao Diameter Index 1.76 cm/m2 1.30-1.90 Thoracic Aorta Ao Arch Diameter 2.6 cm Desc Ao Peak Velocity 1.41 m/s Desc Ao Peak Gradient 8 mmHg Venous Name Value Normal IVC/SVC IVC Diameter (Insp 2D) 2.0 cm IVC Diameter (Exp 2D) 2.2 cm <=2.1 IVC Diameter Percent Change (2D) 10 % >=50 Aortic Valve Name Value Normal AV Doppler AV Peak Velocity 1.45 m/s <2.00 AV Area (Cont Eq Eleuterio) 2.4 cm2 AV Area Index (Cont Eq Eleuterio) 1.51 cm2/m2 AV V1/V2 Ratio 0.75 AV Regurgitation 2D LVOT Area 3.2 cm2 Ventricles Name Value Normal LV Dimensions 2D/MM IVS Diastolic Thickness (2D) 0.8 cm 0.6-0.9 LVID Diastole (2D) 5.0 cm 3.3-5.1 LVIW Diastolic Thickness (2D) 0.8 cm 0.6-0.9 LVID Systole (2D) 3.9 cm 2.2-3.5 LVOT Diameter 2.0 cm LV Fractional Shortening/Ejection Fraction 2D/MM LV Diastolic Volume (4C MOD) 68 ml LV Diastolic Volume (2C MOD) 91 ml LV Diastolic Volume (BP MOD) 78 ml 46-106 LV Diastolic Volume Index (BP MOD) 49.41 ml/m2 29.00-61.00 LV Systolic Volume (BP MOD) 39 ml 14-42 LV Systolic Volume Index (BP MOD) 24.61 ml/m2 8.00-24.00 LV EF (BP MOD) 50 % 58-69 LV SV (BP MOD) 39.13 ml RV Dimensions 2D/MM RV Basal Diastolic Dimension 5.0 cm 2.5-4.1 TAPSE 2.0 cm >=1.7 Atria Name Value Normal LA Dimensions LA Area (4C) 24.8 cm2 LA Length (4C) 6.7 cm LA Area (2C) 24.0 cm2 LA Length (2C) 5.9 cm LA Volume (4C A-L) 78.06 ml LA Volume (2C A-L) 82.73 ml LA Volume (BP A-L) 85 ml 22-52 LA Volume Index (BP A-L) 54.08 ml/m2 <=34.00 RA Dimensions RA Area (4C) 29.5 cm2 <=18.0 Left Ventricle Normal left ventricular size. Mild global LV hypokinesis with mildly reduced LV systolic function. Ejection fraction as calculated by Biplane Simpsons method is 50%. Abnormal septal motion with flattening is systole and diastole c/w RV pressure and volume overload. No left ventricular hypertrophy. Heavily trabeculated left ventricle, consistent with LV non-compaction. Normal E/e' ratio (8). Right Ventricle Moderately dilated right ventricle with preserved systolic function. TAPSE is normal, 2.0 cm. Device lead noted in right ventricle. Aortic Valve Normal, tricuspid aortic valve. Pulmonic Valve Structurally unremarkable pulmonic valve with no significant flow abnormalities. Estimated pulmonary arterial mean pressure 33 mmHg. Mitral Valve Structurally normal mitral valve. Moderate mitral regurgitation. Tricuspid Valve Malcoaptation of the tricuspid valve leaflets secondary to annular dilation. Severe tricuspid regurgitation. Normal estimated pulmonary artery pressures, estimated PASP 32 mmHg. Final Signed by:DO Lynn Jason D Signed (Electronic Signature):12/03/2022 4:07 p Social History Social History Type Response Smoking Status Never smoked cigaret petra Sex Female Implantable Device List Procedure Provider Procedure Date Device Type Site Unknown Unknown 03/16/20 Unknown Unknown Device Identifier Serial Number Lot or Batch Number Manufacturing Date Expiration Date Distinct Identification Code MRI Safety Implantable Status Assigning Authority Unknown Unknown [id number] Unknown 02/20/22 Unknown Unknown Active Unk nown US Heart Transthoracic * DO Lynn Jason D: VERIFY, PERFORM, VERIFY Event Display: Report Authored Date: [id number] Report Signatures Finalized by Dr. Sai Lynn MD on 12/04/2022 02:07 PM [place] Act 112: Yes - Discussed with patient Summary 1. Normal left ventricular size. 2. [...] performed 11/02/2022, there is no significant change. Patient Info Name: CINDY LARRY Age: 37 years : 1985 Gender: Female Ht: 160 cm Wt: 56 kg BSA: 1.58 m2 HR: 72 bpm BP: 126 / 72 mmHg Heart Rhythm: V-Paced Technical Quality: Good Exam Date: 12/03/2022 4:07 PM Exam Location: [facility] Patient Status: Outpatient Staff Ordering Physician: Maikol Jaeger Industrial Hygiene Engineer: Natalie Plasencia RDCS, T Attending Physician: Maikol Jaeger (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 Exam Type: Cardiac Basic Left Atrium Severely dilated left atrium. Right Atrium Markedly dilated right atrium. Device lead noted in RA. Atrial Septum Appears intact (negative bubble study performed 01/12/2019). Hepatic Veins Hepatic vein systolic flow reversal, secondary to tricuspid regurgitation. Pericardium/Pleural No pericardial effusion. Inferior Vena Cava Dilated IVC with reduced (less than 50%) collapse. Aorta Normal aortic root, ascending aorta and aortic arch. Left Ventricular Outflow Tract Name Value Normal LVOT 2D LVOT Diameter 2.0 cm LVOT Doppler LVOT Peak Velocity 1.09 m/s LVOT Mean Gradient 2 mmHg LVOT VTI 19.30 cm LVOT Stroke Volume 60.95 ml LVOT Stroke Volume Index 0.04 l/m2 LVOT Cardiac Output 4.39 l/min LVOT Cardiac Index 2.78 L/min/m2 Pulmonic Valve Name Value Normal PV 2D RVOT Diameter (2D) 2.2 cm 1.7-2.7 RVOT Doppler RVOT Peak Velocity 0.66 m/s PV Doppler PV Peak Velocity 0.73 m/s PV Regurgitation Doppler LA Peak Velocity 2.13 m/s Mitral Valve Name Value Normal MV Doppler MV PHT 80 ms MV Regurgitation Doppler MR Peak Velocity 4.74 m/s MR Peak Gradient 90 mmHg MR VTI 152.27 cm MV Diastolic Function MV E Peak Velocity 0.89 m/s <=0.50 MV Decel Time 276 ms MV Annular TDI MV Septal s' Velocity 13.61 cm/s MV Septal e' Velocity 23.31 cm/s >=7.00 MV E/e' (Septal) 3.8 <=8.0 MV Lateral s' Velocity 7.04 cm/s MV Lateral e' Velocity 7.89 cm/s >=10.00 MV E/e' (Lateral) 11.30 <=8.00 MV e' Average 15.60 MV E/e' (Average) 7.56 <=14.00 Tricuspid Valve Name Value Normal TV Regurgitation Doppler TR Peak Velocity 2.08 m/s <=2.80 TR Peak Gradient 15 mmHg Estimated PAP/RSVP RA Pressure 15 mmHg <=5 PA Systolic Pressure 32 mmHg <40 PA Mean Pressure (LA Velocity) 33 mmHg TV Diastolic Function TV E Peak Velocity 0.87 m/s TV Decel Time 216 ms >=120 TV Annular TDI TV Lateral Crissy s' Velocity 11.3 cm/s 9.5-18.7 TV Lateral Crissy e' Velocity 17.7 cm/s <7.8 TV E/e' 4.91 2.00-6.00 Aorta Name Value Normal Ascending Aorta Sinus of Valsalva Diameter 2.7 cm 2.7-3.3 Sinus of Valsalva Index 1.69 cm/m2 1.60-2.00 Prox Asc Ao Diameter 2.8 cm 2.3-3.1 Prox Asc Ao Diameter Index 1.76 cm/m2 1.30-1.90 Thoracic Aorta Ao Arch Diameter 2.6 cm Desc Ao Peak Velocity 1.41 m/s Desc Ao Peak Gradient 8 mmHg Venous Name Value Normal IVC/SVC IVC Diameter (Insp 2D) 2.0 cm IVC Diameter (Exp 2D) 2.2 cm <=2.1 IVC Diameter Percent Change (2D) 10 % >=50 Aortic Valve Name Value Normal AV Doppler AV Peak Velocity 1.45 m/s <2.00 AV Area (Cont Eq Eleuterio) 2.4 cm2 AV Area Index (Cont Eq Eleuterio) 1.51 cm2/m2 AV V1/V2 Ratio 0.75 AV Regurgitation 2D LVOT Area 3.2 cm2 Ventricles Name Value Normal LV Dimensions 2D/MM IVS Diastolic Thickness (2D) 0.8 cm 0.6-0.9 LVID Diastole (2D) 5.0 cm 3.3-5.1 LVIW Diastolic Thickness (2D) 0.8 cm 0.6-0.9 LVID Systole (2D) 3.9 cm 2.2-3.5 LVOT Diameter 2.0 cm LV Fractional Shortening/Ejection Fraction 2D/MM LV Diastolic Volume (4C MOD) 68 ml LV Diastolic Volume (2C MOD) 91 ml LV Diastolic Volume (BP MOD) 78 ml 46-106 LV Diastolic Volume Index (BP MOD) 49.41 ml/m2 29.00-61.00 LV Systolic Volume (BP MOD) 39 ml 14-42 LV Systolic Volume Index (BP MOD) 24.61 ml/m2 8.00-24.00 LV EF (BP MOD) 50 % 58-69 LV SV (BP MOD) 39.13 ml RV Dimensions 2D/MM RV Basal Diastolic Dimension 5.0 cm 2.5-4.1 TAPSE 2.0 cm >=1.7 Atria Name Value Normal LA Dimensions LA Area (4C) 24.8 cm2 LA Length (4C) 6.7 cm LA Area (2C) 24.0 cm2 LA Length (2C) 5.9 cm LA Volume (4C A-L) 78.06 ml LA Volume (2C A-L) 82.73 ml LA Volume (BP A-L) 85 ml 22-52 LA Volume Index (BP A-L) 54.08 ml/m2 <=34.00 RA Dimensions RA Area (4C) 29.5 cm2 <=18.0 Left Ventricle Normal left ventricular size. Mild global LV hypokinesis with mildly reduced LV systolic function. Ejection fraction as calculated by Biplane Simpsons method is 50%. Abnormal septal motion with flattening is systole and diastole c/w RV pressure and volume overload. No left ventricular hypertrophy. Heavily trabeculated left ventricle, consistent with LV non-compaction. Normal E/e' ratio (8). Right Ventricle Moderately dilated right ventricle with preserved systolic function. TAPSE is normal, 2.0 cm. Device lead noted in right ventricle. Aortic Valve Normal, tricuspid aortic valve. Pulmonic Valve Structurally unremarkable pulmonic valve with no significant flow abnormalities. Estimated pulmonary arterial mean pressure 33 mmHg. Mitral Valve Structurally normal mitral valve. Moderate mitral regurgitation. Tricuspid Valve Malcoaptation of the tricuspid valve leaflets secondary to annular dilation. Severe tricuspid regurgitation. Normal estimated pulmonary artery pressures, estimated PASP 32 mmHg. Final Signed by:DO Lynn Jason D Signed (Electronic Signature):12/03/2022 4:07 p Patient Care team information Care Team Personnel Name: DO Fortune Kristen M Position: Physician - Family Med Member Role: Primary Care Provider Address: Address: [address] [place] [address] Name: RYAN Bergman Stacey L Position: Nurse Pract - Cardiology Member Role: Lifetime Relationship Address: Address: [address] [facility] [place] [address] Name: MD Bhatt Jansie Position: Physician - Anesthesiologist Member Role: Lifetime Relationship Address: Address: [address] [place] [address] [place] [address] Care Team Related Persons Name: EWELINA LARRY Address: home [address] [facility], [phone] Name: REGINA LARRY Name: RACHEL DAVIES
--- OUTSIDE RECORDS SUMMARY | 2023-04-14 19:38 | External Medical Summary | Continuity of Care Document ---
Author Name Unknown Organization [place] [address] NAKITA Munson Address [address] [place] [phone] Care Team Providers Care Oracle Solutions Architect Name Role Phone Chiara Fortune Primary Care Physician [phone] Encounter [facility] [id number] Date(s): 01/07/23 - 01/07/23 [facility] [address], [address] [place] [address] [phone] Discharge Disposition: Home or Self Care Attending [...] q12h, Disp# 180 pen_needle, Refills: 3, Pharmacy: [facility] Start Date: 08/22/22 Stop Date: 08/17/23 Status: Ordered IV iron Start: 12/20/22 14:38:00 EDT, IV iron Start Date: 12/20/22 Status: Ordered Lasix 20 mg oral tablet Start: 12/20/22 15:11:00 EDT, 0.5 tab, PO, Daily, Disp# 30 tab, Refills: 3, Pharmacy: [id number] Start Date: 12/20/22 Status: Ordered Metoprolol Succinate ER 25 mg oral tablet, extended release Start: 12/05/22 11:12:00 EDT, 1 tab, PO, Daily, Disp# 30 tab, Refills: 11, Pharmacy: [id number] Start Date: 12/05/22 Status: Ordered [...] Dilatation and curettage 12/21/17 Completed 12/11/17 Completed [place] tooth extraction 2007 C ompleted uterine septum removal Co mpleted 1pelvic abdomen 2Underlying rhythm Afib with V Pacing Attempted CV with 200 joules x3 in sync biphasic mode without orthodox of NSR Procedure aborted after three attempts Results Radiology Reports * Exam Date Time Procedure Performing Provider Status 01/07/23 10:33 AM Echo TransTHORacic TTE Complete Steel e Liza; Final Notes: (Echo TransTHORacic TTE Complete) Reason For Exam: non compaction; RV fxn Echo TransTHORacic TTE Complete Report Signatures Finalized by Dr. Sai Lynn MD on 01/07/2023 12:11 PM [place] Act 112: Yes - Discussed with patient Summary 1. Mildly dilated left ventricle. 2. [...] but otherwise there is no significant change. Patient Info Name: CINDY LARRY Age: 37 years : 1985 Gender: Female Ht: 160 cm Wt: 57 kg BSA: 1.59 m2 HR: 71 bpm BP: 110 / 64 mmHg Technical Quality: Excellent Exam Date: 01/07/2023 10:04 AM Exam Location: [facility] Patient Status: Outpatient Staff Ordering Physician: Sai Lynn Chemic Mangler: Liza Alejandra RDCS, RVT Attending Physician: Sai Lynn Study Info CPT 61060 - 62092 - Indications I429 - Cardiomyopathy, unspecified Procedure(s) [...] 2.1 cm LVOT Doppler LVOT Peak Velocity 1.08 m/s LVOT Peak Gradient 5 mmHg LVOT Mean Gradient 2 mmHg LVOT VTI 18.99 cm LVOT Stroke Volume 64.49 ml LVOT Stroke Volume Index 0.04 l/m2 LVOT Cardiac Output 4.58 l/min LVOT Cardiac Index 2.88 L/min/m2 Pulmonic Valve Name Value Normal PV 2D RVOT Diameter (2D) 2.7 cm 1.7-2.7 RVOT Doppler RVOT Peak Velocity 0.50 m/s RVOT Peak Gradient 1 mmHg PV Doppler PV Peak Gradient 2 mmHg PV Regurgitation Doppler RI Peak Velocity 1.95 m/s Mitral Valve Name Value Normal MV Doppler MV PHT 61 ms MV Diastolic Function MV E Peak Velocity 1.01 m/s <=0.50 MV Decel Time 211 ms MV Annular TDI MV Septal s' Velocity 5.27 cm/s MV Septal e' Velocity 9.08 cm/s >=7.00 MV E/e' (Septal) 11.2 <=8.0 MV Lateral s' Velocity 10.72 cm/s MV Lateral e' Velocity 22.22 cm/s >=10.00 MV E/e' (Lateral) 4.56 <=8.00 MV e' Average 15.65 MV E/e' (Average) 7.86 <=14.00 Tricuspid Valve Name Value Normal TV Regurgitation Doppler TR Peak Velocity 1.72 m/s <=2.80 TR Peak Gradient 11 mmHg Estimated PAP/RSVP RA Pressure 15 mmHg <=5 PA Systolic Pressure 27 mmHg <40 PA Mean Pressure (RI Velocity) 30 mmHg TV Diastolic Function TV E Peak Velocity 0.83 m/s TV Decel Time 137 ms >=120 TV Annular TDI TV Lateral Crissy s' Velocity 12.0 cm/s 9.5-18.7 TV Lateral Crissy e' Velocity 12.7 cm/s <7.8 TV E/e' 6.58 2.00-6.00 Aorta Name Value Normal Ascending Aorta Sinus of Valsalva Diameter 2.7 cm 2.7-3.3 Sinus of Valsalva Index 1.70 cm/m2 1.60-2.00 Thoracic Aorta Ao Arch Diameter 2.3 cm Desc Ao Peak Velocity 1.22 m/s Desc Ao Peak Gradient 6 mmHg Venous Name Value Normal IVC/SVC IVC Diameter (Insp 2D) 2.3 cm IVC Diameter (Exp 2D) 2.6 cm <=2.1 IVC Diameter Percent Change (2D) 10 % >=50 Aortic Valve Name Value Normal AV Doppler AV Peak Velocity 1.48 m/s <2.00 AV Peak Gradient 9 mmHg AV Area (Cont Eq Eleuterio) 2.5 cm2 AV Area Index (Cont Eq Eleuterio) 1.56 cm2/m2 AV V1/V2 Ratio 0.73 AV Regurgitation 2D LVOT Area 3.4 cm2 Ventricles Name Value Normal LV Dimensions 2D/MM IVS Diastolic Thickness (2D) 0.9 cm 0.6-0.9 LVID Diastole (2D) 4.8 cm 3.3-5.1 LVIW Diastolic Thickness (2D) 0.9 cm 0.6-0.9 LVID Systole (2D) 3.6 cm 2.2-3.5 LVOT Diameter 2.1 cm LV Mass (2D Cubed) 141.97 g 67.00-162.00 LV Mass Index (2D Cubed) 0.01 g/cm2 0.00-0.01 Relative Wall Thickness (2D) 0.36 LV Fractional Shortening/Ejection Fraction 2D/MM LV Fractional Shortening (2D) 25 % 27-45 LV Diastolic Volume (4C MOD) 94 ml LV Diastolic Volume (2C MOD) 124 ml LV Diastolic Volume (BP MOD) 107 ml 46-106 LV Diastolic Volume Index (BP MOD) 67.17 ml/m2 29.00-61.00 LV Systolic Volume (BP MOD) 46 ml 14-42 LV Systolic Volume Index (BP MOD) 29.09 ml/m2 8.00-24.00 LV EF (BP MOD) 55 % 58-69 LV SV (BP MOD) 60.60 ml RV Dimensions 2D/MM RV Basal Diastolic Dimension 5.4 cm 2.5-4.1 RV Mid-Cavity Diastolic Dimension 5.0 cm 1.9-3.5 TAPSE 1.7 cm >=1.7 Atria Name Value Normal LA Dimensions LA Area (4C) 24.5 cm2 LA Length (4C) 6.0 cm LA Area (2C) 22.8 cm2 LA Length (2C) 6.0 cm LA Volume (4C A-L) 84.22 ml LA Volume (2C A-L) 73.90 ml LA Volume (BP A-L) 79 ml 22-52 LA Volume Index (BP A-L) 49.87 ml/m2 <=34.00 RA Dimensions RA Area (4C) 29.6 cm2 <=18.0 Left Ventricle Mildly dilated left ventricle. Normal LV systolic function with no regional wall motion abnormalities. Ejection fraction as calculated by Biplane Simpsons method is 55%. Global endocardial peak longitudinal strain is -19%. LV septal flattening in diastole c/w right heart volume overload. No left ventricular hypertrophy. Heavily trabeculated left ventricle, consistent with LV non-compaction. Right Ventricle Moderately dilated right ventricle. TAPSE is normal, 1.7 cm. Normal RV function. Device lead noted in right ventricle. Aortic Valve Normal, tricuspid aortic valve. Pulmonic Valve Structurally unremarkable pulmonic valve with no significant flow abnormalities. Estimated pulmonary arterial mean pressure is elevated (30 mmHg). Mitral Valve Structurally normal mitral valve. Moderate mitral regurgitation. Tricuspid Valve Malcoaptation of the tricuspid valve leaflets secondary to annular dilation. Severe tricuspid regurgitation. Normal estimated pulmonary artery pressures, estimated PASP is 27 mmHg. Final Signed by:DO Lynn Jason D Signed (Electronic Signature):01/07/2023 10:04 Social History Social History Type Response Smoking Status Never smoked cigaret petra Sex Female Implantable Device List Procedure Provider Procedure Date Device Type Site Unknown Unknown 03/16/20 Unknown Unknown Device Identifier Serial Number Lot or Batch Number Manufacturing Date Expiration Date Distinct Identification Code MRI Safety Implantable Status Assigning Authority Unknown Unknown [id number] Unknown 02/20/22 Unknown Unknown Active Unk nown Patient Care team information Care Team Personnel Name: DO Fortune Kristen M Position: Physician - Family Med Member Role: Primary Care Provider Address: Address: [address] [facility] [address] [place] [address] Name: RYAN Bergman Stacey L Position: Nurse Pract - Cardiology Member Role: Lifetime Relationship Address: Address: [address] [place] [address] [place] Name: MD Bhatt Jansie Position: Physician - Anesthesiologist Member Role: Lifetime Relationship Address: Address: [address] [place] [address] [place] Care Team Related Persons Name: EWELINA LARRY Address: home [address] [facility], [phone] Name: REGINA LARRY Name: RACHEL DAVIES
--- OUTSIDE RECORDS SUMMARY | 2023-04-14 19:38 | External Medical Summary | Continuity of Care Document ---
Author Name Unknown Organization [facility] Address [address] [place] [id number] Care Team Providers Care Color Blender Name Role Phone Devika Chiara M Primary Care Physician [phone] Encounter [facility] RAD[facility] [id number] Date(s): 12/06/22 - 12/06/22 [facility] [place] [facility] [address] [place] [address] [phone] Encounter Diagnosis Iron deficiency anemia(Discharge Diagnosis) - 12/06/22 Discharge Disposition: Home or Self Care Attending Physician: MD Rodgers Peter H Referring Physician: MD Rodgers Peter H Allergies, Adverse Reactions, Alerts No Known Allergies Functional Status 12/06/22 Gait Steady Immunizations Given and Recorded Vaccine [...] Daily, Disp# 30 tab, Refills: 11, Pharmacy: [id number] Start Date: [...] Service Informant Iron deficiency anemia Discharge Diagnosis 12/06/22 Non-Specified Procedures Procedure Date Related Diagnosis Body Site Status Shave biopsy 1 09/15/20 Completed Cardioversion 2 10/01/19 Completed Pacemaker catheter, device 05/2019 Completed D&C - Dilatation and curettage 12/21/17 Completed 12/11/17 Completed [place] tooth extraction 2007 C ompleted uterine septum removal Co mpleted 1pelvic abdomen 2Underlying rhythm Afib with V Pacing Attempted CV with 200 joules x3 in sync biphasic mode without anabaptist of NSR Procedure aborted after three attempts Vital Signs Most recent to oldest [Reference Range]: 1 2 Patient Weight 58.7 kg (12/06/22 2:23 PM) Body Mass Index 22.23 kg/m2 (12/06/22 2:25 PM) 22.23 kg/m2 (12/06/22 2:23 PM) Temperature [36.5-37.9 DegC] 36.7 DegC (12/06/22 3:35 PM) 37.4 DegC (12/06/22 2:23 PM) Heart Rate 67 bpm (12/06/22 3:35 PM) 72 bpm (12/06/22 2:23 PM) Respiratory Rate 20 br/min (12/06/22 3:35 PM) 20 br/min (12/06/22 2:23 PM) Blood Pressure 92/61mmHg (12/06/22 3:35 PM) 95/60mmHg (12/06/22 2:23 PM) Cuff Pulse Pressure 31 mmHg (12/06/22 3:35 PM) 35 mmHg (12/06/22 2:23 PM) BP Location # 1 Right Arm, Non-invasive (12/06/22 3:35 PM) Right Arm (12/06/22 2:23 PM) Social History Social History Type Response Smoking Status Never smoked cigaret petra Sex Female Implantable Device List Procedure Provider Procedure Date Device Type Site Unknown Unknown 03/16/20 Unknown Unknown Device Identifier Serial Number Lot or Batch Number Manufacturing Date Expiration Date Distinct Identification Code MRI Safety Implantable Status Assigning Authority Unknown Unknown [id number] Unknown 02/20/22 Unknown Unknown Active Edink antionen Patient Care team information Care Team Personnel Name: DO Fortune Kristen M Position: Physician - Family Med Member Role: Primary Care Provider Address: Address: [address] [address] Name: RYAN Bergman Stacey L Position: Nurse Pract - Cardiology Member Role: Lifetime Relationship Address: Address: [address] [facility] [place] [address] Name: MD Bhatt Jansie Position: Physician - Anesthesiologist Member Role: Lifetime Relationship Address: Address: [address] [place] [address] [place] Care Team Related Persons Name: EWELINA LARRY Address: home [address] [facility], [id number] Name: REGINA LARRY Name: RACHEL DAVIES
--- OUTSIDE RECORDS SUMMARY | 2023-04-14 19:38 | External Medical Summary | Continuity of Care Document ---
Author Name Unknown Organization [facility] Address [address] [place] [address] [place] [id number] Care Team Providers Care Neck Band Operator Name Role Phone Chiara Fortune Primary Care Physician [phone] Encounter [facility] [id number] Date(s): 10/18/22 - 10/18/22 [facility] [place] [facility] [address] [place] [address] [phone] Encounter Diagnosis Iron deficiency anemia(Discharge Diagnosis) - 10/18/22 Discharge Disposition: Home or Self Care Attending Physician: MD Rodgers Peter H Referring Physician: MD Rodgers Peter H Allergies, Adverse Reactions, Alerts No Known Allergies Functional Status 10/18/22 Gait Steady Immunizations Given and Recorded Vaccine [...] BY MOUTH EVERY DAY AT BEDTIME, [id number] Start Date: 06/11/22 Status: Ordered [...] Service Informant Iron deficiency anemia Discharge Diagnosis 10/18/22 Non-Specified Procedures Procedure Date Related Diagnosis Body Site Status Shave biopsy 1 09/15/20 Completed Cardioversion 2 10/01/19 Completed Pacemaker catheter, device 05/2019 Completed D&C - Dilatation and curettage 12/21/17 Completed 12/11/17 Completed [place] tooth extraction 2007 C ompleted uterine septum removal Co mpleted 1pelvic abdomen 2Underlying rhythm Afib with V Pacing Attempted CV with 200 joules x3 in sync biphasic mode without evangelical of NSR Procedure aborted after three attempts Vital Signs Most recent to oldest [Reference Range]: 1 2 3 Temperature [36.5-37.9 DegC] 36.8 DegC (10/18/22 2:34 PM) 36.8 DegC (10/18/22 1:19 PM) 36.9 DegC (10/18/22 1:17 PM) Heart Rate 60 bpm (10/18/22 2:34 PM) 94 bpm (10/18/22 1:19 PM) Respiratory Rate 18 br/min (10/18/22 2:34 PM) 18 br/min (10/18/22 1:19 PM) Blood Pressure 118/72mmHg (10/18/22 2:34 PM) 147/82mmHg (10/18/22 1:19 PM) BP Location # 1 Left Arm (10/18/22 2:34 PM) Left Arm (10/18/22 1:19 PM) Social History Social History Type Response Smoking Status Never smoked cigaret petra Sex Female Implantable Device List Procedure Provider Procedure Date Device Type Site Unknown Unknown 03/16/20 Unknown Unknown Device Identifier Serial Number Lot or Batch Number Manufacturing Date Expiration Date Distinct Identification Code MRI Safety Implantable Status Assigning Authority Unknown Unknown [id number] Unknown 02/20/22 Unknown Unknown Active Unk nown Patient Care team information Care Team Personnel Name: MD Viki, Noel Position: Resident Member Role: Lifetime Relationship Address: Address: [address] [facility] [address] [place] [address] Name: DO Fortune Kristen M Position: Physician - Family Med Member Role: Primary Care Provider Address: Address: [address] [facility] [address] [place] [address] Name: RYAN Bergman Stacey L Position: Nurse Pract - Cardiology Member Role: Lifetime Relationship Address: Address: [address] [place] [address] [place] Name: MD Bhatt Jansie Position: Physician - Anesthesiologist Member Role: Lifetime Relationship Address: Address: [address] [place] [address] Care Team Related Persons Name: EWELINA LARRY Address: home [address] [facility] [facility], [id number] Name: REGINA LARRY Name: RACHEL DAVIES
[2023-04-14 20:09] LABS: Basophils # (auto) 0.07 K/uL (0.00-0.20); Basophils % (auto) 0.7 %; Eosinophils # (auto) 0.15 K/uL (0.00-0.50); Eosinophils % (auto) 1.5 %; Hematocrit (blood only) 29.1 % (37.0-47.0); Hemoglobin 9.7 g/dl (12.0-16.0); Immature Granulocytes # (auto) 0.22 K/uL (0.01-0.20); Immature Granulocytes % (auto) 2.2 %; Lymphocytes # (auto) 1.98 K/uL (1.20-3.40); Lymphocytes % (auto) 19.6 %; Mean Corpuscular Hemoglobin 31.8 pg (25.0-34.0); Mean Corpuscular Hgb Conc 33.3 g/dL (32.0-36.0); Mean Corpuscular Volume 95.4 fL (80.0-100.0); Mean Platelet Volume 10.2 fL (9.4-12.4); Monocytes # (auto) 0.57 K/uL (0.11-0.59); Monocytes % (auto) 5.6 %; Neutrophils % (auto) 70.4 %; Platelet Count 310 K/uL (130-400); RDW Standard Deviation 52.3 fL (36.4-46.3); Red Blood Count 3.05 M/uL (4.20-5.40); White Blood Count 10.09 K/ul (4.8-10.8)
[2023-04-14 20:25] LABS: Appearance Urine Cloudy (Clear); Bacteria Urine Automated Negative (Negative); Bilirubin Urine Negative (Negative); Blood Urine 3+ (Negative); Color Urine Red; Epithelial Cell Urine Auto >30 /lpf (0-5); Glucose Urine UA Negative (Negative); Ketones Urine 1+ (Negative); Leukocyte Esterase Urine Trace (Negative); Nitrite Urine Negative (Negative); Protein Urine 1+ (Negative); RBC Urine Automated >30 /hpf (0-4); Specific Gravity Urine 1.007 (1.000-1.030); Urobilinogen Urine Negative (Negative); pH Urine 5.5 (4.5-7.5)
[2023-04-14 20:26] LABS: Albumin Globulin Ratio 1.1 (0.9-2); Albumin Level 4.1 gm/dl (3.4-5.0); Bilirubin,Total 0.4 mg/dl (0.2-1.0); Calcium 9.6 mg/dl (8.6-10.3); Creatinine Clr Calc Pharmacy 137.2 ml/min; Est GFR (African American) 146.3 ml/min; Est GFR (Non-African American) 126.2 ml/min; Globulin 3.8 gm/dl (2.5-4.0); Potassium 3.1 mmol/L (3.5-5.1); Total Protein 7.9 gm/dl (6.0-8.3)
--- NOTE | 2023-04-14 21:41 | Emergency Department Note ---
History of Present Illness General Chief complaint: Hypertension Stated complaint: HTN,148/84,4 DAYS Time Seen by Provider: 04/14/23 21:28 History of Present Illness Maximum Pain Intensity: 4 This is a 37-year-old female that presents to the emergency department via private vehicle with complaints of "hypertension, 4 days ". The patient notes a history of complicated first followed by cardiomyopathy and now pacemaker. She states that throughout the current she notes she delivered via 4 days ago, she had monthly echocardiograms. She delivered at [facility] in [facility]. The patient notes that the went well. No issues. Today she noted a bit of a headache that was generalized. Not of sudden onset. Not worst headache of her life. She thought perhaps it was secondary to not sleeping last night. She denies any chest pain or shortness of breath. No fevers or chills. Mild nausea. She denies any dehiscence of her abdominal wounds, purulence or bleeding. She states that she checked her pressure at home because she had a an issue with elevated blood pressure during her first and noted it was 177/99. Secondary to this she reached out to her [facility] team and was recommended to come here for evaluation. Patient notes that at home after that first pressure was checked the subsequent ones were a bit lower but she notes never below 140/81. Home Medications Medication Instructions Recorded Confirmed Type metoprolol succinate 25 mg 25 mg PO QPM 02/26/19 04/14/23 History tablet,extended release 24 hr cholecalciferol (vitamin D3) 50 50 mcg PO DAILY 09/28/19 04/14/23 History mcg (2,000 unit) capsule (Vitamin D3) coQ10 (ubiquinol) 100 mg capsule 100 mg PO DAILY 09/28/19 04/14/23 History cyanocobalamin (vitamin B-12) 1,000 mcg PO DAILY 09/28/19 04/14/23 History 1,000 mcg tablet enoxaparin 60 mg/0.6 mL 60 mg subcut BID 04/14/23 04/14/23 History subcutaneous syringe vit no.95-ferrous 1 tab PO DAILY 04/14/23 04/14/23 History fumarate 28 mg-folic acid 800 mcg tablet () Allergies Allergy/AdvReac Type Severity Reaction Status Date / Time No Known Allergies Allergy Verified 12/24/23 22:35 Past Med/Surg History Medical History (Updated 04/15/23 @ 05:03 by Epifanio Kearney PA-C) Anemia 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 Menorrhagia Transient ischemic attack (TIA) 04/2018 (NO CURRENT PROBLEMS) Pacemaker 05/2019 IMPLANTED AT [facility] (FOLLOWED BY DR. CATALAN) [employer] DEVICE Junctional cardiac arrhythmia Atrial fibrillation History of high blood pressure Surgical History History of hysteroscopy with resection of uterine septum and Mirena placement. Nausea and vomiting after administration of anesthetic agent [place] teeth removed History of myringotomy History of D&C History of section X 1 Family History Grandmother (Paternal) DVT (deep vein thrombosis) in Stroke Other No significant family history Denies family history of Ovarian cancer Breast cancer Colorectal cancer Social History Smoking Status: Never smoker Second Hand Exposure: No; Do You Dip or Chew Tobacco: No; Hx Alcohol Use: No Hx Substance Use: No Preferred Language: Bahamian Communication Ability: Effective Beliefs That Will Affect Care: None Current Living Situation: Significant Other Other Information That Helps Us Care for You: No Feels Safe at Home: Yes Safety Concerns: Feels Safe At This Time Assistive Devices: None Review of Systems A total of 10 systems reviewed and were otherwise negative Physical Exam Vital Signs Vital Signs - 24 hr 04/14/23 19:34 04/14/23 20:04 04/14/23 20:05 Temperature 36.4 C L Temperature Source Temporal Artery Scan Pulse Rate 87 84 Pulse Rate [Apical] 89 Pulse Rate from SpO2 Sensor Pulse Rhythm Regular Pulse Strength Normal Respiratory Rate 17 18 Respiratory Effort / Characteristics Non-Labored Spontaneous Respiratory Depth Normal Normal Respiratory Pattern Regular Blood Pressure 159/73 H Blood Pressure [Right Arm] 128/78 Blood Pressure Mean 101 Blood Pressure Mean [Right Arm] 94 Blood Pressure Position Sitting Blood Pressure Position [Right Arm] Semi-fowlers Pulse Oximetry 100 100 Oxygen Delivery Method Room Air Room Air Sepsis Recent Fever Within 48 Hours No Sepsis New/Unexplained Change in Mental Status N/A Sepsis Action Taken by Nursing No Action Required 04/14/23 20:20 04/14/23 20:30 04/14/23 20:50 Temperature Temperature Source Pulse Rate 82 80 80 Pulse Rate [Apical] Pulse Rate from SpO2 Sensor 82 80 80 Pulse Rhythm Pulse Strength Respiratory Rate 19 18 20 Respiratory Effort / Characteristics Respiratory Depth Respiratory Pattern Blood Pressure 144/85 H Blood Pressure [Right Arm] Blood Pressure Mean 104 Blood Pressure Mean [Right Arm] Blood Pressure Position Blood Pressure Position [Right Arm] Pulse Oximetry 98 99 98 Oxygen Delivery Method Sepsis Recent Fever Within 48 Hours Sepsis New/Unexplained Change in Mental Status Sepsis Action Taken by Nursing 04/14/23 21:00 04/14/23 21:30 04/14/23 21:50 Temperature Temperature Source Pulse Rate 80 80 87 Pulse Rate [Apical] Pulse Rate from SpO2 Sensor 80 80 87 Pulse Rhythm Pulse Strength Respiratory Rate 20 20 16 Respiratory Effort / Characteristics Respiratory Depth Respiratory Pattern Blood Pressure 133/81 139/78 Blood Pressure [Right Arm] Blood Pressure Mean 98 98 Blood Pressure Mean [Right Arm] Blood Pressure Position Blood Pressure Position [Right Arm] Pulse Oximetry 100 98 100 Oxygen Delivery Method Sepsis Recent Fever Within 48 Hours Sepsis New/Unexplained Change in Mental Status Sepsis Action Taken by Nursing 04/14/23 22:30 04/14/23 23:00 04/14/23 23:30 Temperature Temperature Source Pulse Rate 82 82 Pulse Rate [Apical] Pulse Rate from SpO2 Sensor 80 82 Pulse Rhythm Pulse Strength Respiratory Rate 11 L 17 Respiratory Effort / Characteristics Respiratory Depth Respiratory Pattern Blood Pressure 122/78 159/92 H 133/83 Blood Pressure [Right Arm] Blood Pressure Mean 92 115 99 Blood Pressure Mean [Right Arm] Blood Pressure Position Blood Pressure Position [Right Arm] Pulse Oximetry 97 98 Oxygen Delivery Method Sepsis Recent Fever Within 48 Hours Sepsis New/Unexplained Change in Mental Status Sepsis Action Taken by Nursing 04/15/23 00:00 04/15/23 00:00 04/15/23 00:31 Temperature Temperature Source Pulse Rate 80 Pulse Rate [Apical] 80 81 Pulse Rate from SpO2 Sensor Pulse Rhythm Pulse Strength Respiratory Rate 18 20 Respiratory Effort / Characteristics Respiratory Depth Normal Normal Respiratory Pattern Blood Pressure Blood Pressure [Right Arm] 120/78 135/76 Blood Pressure Mean Blood Pressure Mean [Right Arm] 92 95 Blood Pressure Position Blood Pressure Position [Right Arm] Semi-fowlers Semi-fowlers Pulse Oximetry 98 98 Oxygen Delivery Method Room Air Room Air Sepsis Recent Fever Within 48 Hours Sepsis New/Unexplained Change in Mental Status Sepsis Action Taken by Nursing 04/15/23 01:10 Temperature Temperature Source Pulse Rate Pulse Rate [Apical] 85 Pulse Rate from SpO2 Sensor Pulse Rhythm Pulse Strength Respiratory Rate 18 Respiratory Effort / Characteristics Respiratory Depth Normal Respiratory Pattern Blood Pressure Blood Pressure [Right Arm] 136/82 Blood Pressure Mean Blood Pressure Mean [Right Arm] 100 Blood Pressure Position Blood Pressure Position [Right Arm] Semi-fowlers Pulse Oximetry 99 Oxygen Delivery Method Room Air Sepsis Recent Fever Within 48 Hours Sepsis New/Unexplained Change in Mental Status Sepsis Action Taken by Nursing VITAL SIGNS - Vital signs and nursing notes were reviewed. Stable and afebrile. GENERAL -37-year-old female appearing her stated age who is in no acute distress. Communicates well with provider and answers questions appropriately. SKIN - Without rashes. No meningeal or petechial rash. HEAD - NC/AT. EYES - PERRL with EOMI bilaterally. Sclera anicteric. EARS - No deformities of external structures noted on gross examination bilaterally. No pain elicited with palpation of the tragus bilaterally. NOSE - Midline and without cyanosis. No epistaxis or purulent drainage noted. Septum midline without deviation or septal hematoma noted. MOUTH/OROPHARYNX - Without perioral cyanosis. Buccal mucosa pink and moist and without leukoplakia. NECK - Neck with FROM. No nuchal rigidity. LUNGS - Chest wall symmetric without accessory muscle use, intercostals retractions, or central cyanosis. Normal vesicular breath sounds CTA B/L. No wheezes, rales, or rhonchi appreciated. CARDIAC - RRR. ABDOMEN - Abdominal contour normal without pulsations or visible masses. BS normoactive all four quadrants. C section incision covered at this time. EXTREMITIES - No clubbing or peripheral cyanosis. +5/5 strength noted in UE/LE bilaterally. NEUROLOGIC - Cranial nerves II through XII grossly intact. PSYCH - A&Ox3 and cooperates fully with examiner. Pt is very pleasant and interacts well with examiner. Course Administered Medications Discontinued Medications Acetaminophen (Acetaminophen 325 Mg Tab) 650 mg PO NOW STA Stop: 04/15/23 01:43 Last Admin: 04/15/23 01:58 Dose: 650 mg Documented By: OKSANA Metoprolol Succinate (Metoprolol Succ 25mg Ext Rel Tab) 25 mg PO NOW STA Stop: 04/14/23 23:05 Last Admin: 04/14/23 23:20 Dose: 25 mg Documented By: OKSANA Metoprolol Succinate (Metoprolol Succ 25mg Ext Rel Tab) 12.5 mg PO NOW STA Stop: 04/14/23 23:36 Last Admin: 04/14/23 23:46 Dose: 12.5 mg Documented By: OKSANA Potassium Chloride (Potassium Chloride Crtab 20 Meq Tabcr) 20 meq PO NOW STA Stop: 04/14/23 22:59 Last Admin: 04/14/23 23:20 Dose: 20 meq Documented By: OKSANA Medical Decision Making Laboratory Data 04/14/23 19:40 04/14/23 19:40 Lab Results 04/14/23 04/14/23 Range/Units 19:40 20:05 WBC 10.09 (4.8-10.8) K/ul RBC 3.05 L (4.20-5.40) M/uL Hgb 9.7 L (12.0-16.0) g/dl Hct 29.1 L (37.0-47.0) % MCV 95.4 (80.0-100.0) fL MCH 31.8 (25.0-34.0) pg MCHC 33.3 (32.0-36.0) g/dL RDW Std Deviation 52.3 H (36.4-46.3) fL RDW Coeff of Timoteo 15.0 H (11.5-14.5) % Plt Count 310 (130-400) K/uL MPV 10.2 (9.4-12.4) fL Immature Gran % (Auto) 2.2 % Neut % (Auto) 70.4 % Lymph % (Auto) 19.6 % [place] % (Auto) 5.6 % Eos % (Auto) 1.5 % Baso % (Auto) 0.7 % Neut # (Auto) 7.10 H (1.40-6.50) K/uL Lymph # (Auto) 1.98 (1.20-3.40) K/uL [place] # (Auto) 0.57 (0.11-0.59) K/uL Eos # (Auto) 0.15 (0.00-0.50) K/uL Baso # (Auto) 0.07 (0.00-0.20) K/uL Immature Gran # (Auto) 0.22 H (0.01-0.20) K/uL Sodium 138 (136-145) mmol/L Potassium 3.1 L (3.5-5.1) mmol/L Chloride 102 (98-107) mmol/L Carbon Dioxide 25 (21-32) mmol/L Anion Gap 11 (3-11) BUN 6 (6-23) mg/dl Creatinine 0.46 L (0.6-1.2) mg/dl Est Cr Clr Drug Dosing 137.2 ml/min Est GFR ( Amer) 146.3 ml/min Est GFR (Non-Af Amer) 126.2 ml/min BUN/Creatinine Ratio 13.0 (10-20) Glucose 87 (70-99(Fasting)) mg/dl Calcium 9.6 (8.6-10.3) mg/dl Magnesium 1.8 (1.7-2.4) mg/dl Total Bilirubin 0.4 (0.2-1.0) mg/dl AST 15 (13-39) U/L ALT 11 (7-52) U/L Alkaline Phosphatase 130 H (34-104) U/L Troponin I High Sens 7.5 (0-14) pg/ml Total Protein 7.9 (6.0-8.3) gm/dl Albumin 4.1 (3.4-5.0) gm/dl Globulin 3.8 (2.5-4.0) gm/dl Albumin/Globulin Ratio 1.1 (0.9-2) Urine Color Red Urine Appearance Cloudy A (Clear) Urine pH 5.5 (4.5-7.5) Ur Specific [place] 1.007 (1.000-1.030) Urine Protein 1+ H (Negative) Urine Glucose (UA) Negative (Negative) Urine Ketones 1+ H (Negative) Urine Blood 3+ H (Negative) Urine Nitrite Negative (Negative) Urine Bilirubin Negative (Negative) Urine Urobilinogen Negative (Negative) Ur Leukocyte Esterase Trace H (Negative) Urine WBC (Auto) 5-10 H (0-5) /hpf Urine RBC (Auto) >30 H (0-4) /hpf U Hyaline Cast (Auto) 1-5 (0-5) /lpf U Epithel Cells (Auto) >30 H (0-5) /lpf Urine Bacteria (Auto) Negative (Negative) Imaging Data My Impression: Chest xray per my interpretation: Pacemaker noted. No acute process. Radiologist's Impression: Head CT 04/15/23 00:11 Exam(s): CT HEAD Without Contrast EXAM: CT Head Without Intravenous Contrast CLINICAL HISTORY: Reason for exam: headache post C section. TECHNIQUE: Axial computed tomography images of the head/brain without intravenous contrast. Automated exposure control was utilized for the study. A dose lowering technique was utilized adhering to the principles of ALARA. COMPARISON: No relevant prior studies available. FINDINGS: No acute intracranial hemorrhage. No midline shift or mass effect. The territorial vernon-white matter differentiation is maintained throughout. The ventricles and sulci are commensurate with age. The visualized orbits appear grossly unremarkable. The calvarium is intact. The visualized paranasal sinuses and mastoid air cells are grossly clear. IMPRESSION: No acute intracranial hemorrhage, midline shift, or mass effect. Electronically signed by: Kumar Wilson MD 04/15/23 01:58 AM MDM Narrative Patient was seen and evaluated as above in room B07. Review was performed of nursing notes and vital signs. I did review pertinent previous visits and patient history. After obtaining a thorough history and physical examination the above work up was performed. Patient presents to us today for evaluation of elevated blood pressures in the setting of 4 days with a history of cardiomyopathy and pacemaker. There is no chest pain or shortness of breath. Headache is generalized and mild in nature. EKG obtained reveals a ventricular paced rhythm at 82 bpm. No evidence of ischemia on this paced rhythm. Options of care were discussed with the patient. IV access was established. Labs were drawn. There is no leukocytosis. Mild anemia noted with hemoglobin of 9.7. Hypokalemia 3.1 which was repleted orally. Alk phos 130. Troponin negative. Urinalysis does not suggest infection. Patient's blood pressure was elevated on arrival but then did trend below the 140/90 raymundo. However upon recheck did a send to 159/92. The patient did note that she did not have her evening dose of metoprolol that she would be due for. Per review of the EMR this to be metoprolol succinate 25 mg p.o. in the evening. This was ordered. To be thorough, I did discuss findings on today's presentation with the patient's established cardiology team at [facility]. I discussed today's findings and presentation as well as plan of care with both Dr. Jaeger of cardiology at [facility] as well as Dr. Adame of [facility] shortly after 11:25pm on 04/14/23. With the patient's fluctuating blood pressures in the setting and her comorbidities admission to the hospital with carefully monitoring her blood pressure is reasonable. We need to watch for preeclampsia and with her cardiac history closely monitor for any issues. We did agree to also add another 12.5 mg of metoprolol succinate to equal 37.5 mg which she was on during her . We also agree that magnesium can be added for blood pressures above 160/110 to ensure no seizure develops. Recommendation was admission and if our services here were not comfortable then we could transfer the patient down to [facility]. I spoke with Dr. Ramirez of [facility] here and we agreed the patient at the present time overall appears well. [facility] is available if the need would arise here at our facility. I will proceed with medical admission. Case discussed with hospitalist service. Please refer to further documentation regarding her stay. Patient amenable to these plans. I did add on a CT scan of the head on the patient's headache in the setting of rising blood pressures, Lovenox use and this was negative. Chest x-ray per my interpretation also revealed no acute process, pacemaker. GCS: 15 In the evaluation and treatment of this patient the following differential diagnoses were entertained: preeclampsia, PRES, intracranial hemorrhage, electrolyte disturbance, sleep deprivation, hypertension, among others Impression & Plan Hypertension in , transient, , Anemia, Headache, state, Pacemaker, Non-compaction cardiomyopathy Discharge Plan Visit Data Chief Complaint: Hypertension Stated Complaint: HTN,148/84,4 DAYS ED Provider: Mayelin Escalante ED Midlevel Provider: Epifanio Kearney Discharge Problem: Hypertension in , transient, , Anemia, Headache, state, Pacemaker, Non-compaction cardiomyopathy Patient Disposition: Admitted As Inpatient Condition: Good Discharge Instructions Interventions: ED Discharge Assessment Last Done: 04/15/23 02:04
[2023-04-14 21:58] LABS: Magnesium 1.8 mg/dl (1.7-2.4)
[2023-04-14 22:05] LABS: Troponin I High Sensitivity 7.5 pg/ml (0-14)
[2023-04-14] MEDS ORDERED: POTASSIUM CHLORIDE CRTAB 20 MEQ TABCR PO STA (22:58)
[2023-04-14] MEDS ORDERED: METOPROLOL SUCC 25MG EXT REL TAB PO STA ×2 (23:04→23:35)
--- NOTE | 2023-04-15 01:38 | History & Physical Report ---
Date of Service April 15, 2023 Assessment & Plan (1) Hypertension: Plan: 37yo Female with PMH HTN during , TIA, afib, cardiomegaly with pacer, here for concern headache and HTN. HTN with headache -received metoprolol succinate 37.5mg in ED. -received tylenol 650mg -CT head negative for stroke -no acute neurological symptoms -normal kidney function -will admit to med/tele -consult placed to cardiology given her complicated history, pacer with possible need for MRI -if patient continues to have symptoms in the morning consider brain MRI to rule out max syndrome -continue metoprolol 25mg daily with additional 12.5mg dose as needed if BP st ill elevated Afib -continue lovenox FENa: Regluar Code Status: Full DVT PPX: lovenox Dispo: med/tele Minal Win D.O. PGY 3, FCM (2) Headache: (3) Atrial fibrillation: (4) Transient ischemic attack (TIA): (5) Pacemaker: History of Present Illness Primary Care Provider: Chiara Fortune, 37yo Female with PMH HTN during , TIA, afib, cardiomegaly with pacer, here for concern headache and HTN. Patient states she had a c section 04/10, recovered well from procedure. There were complications with HTN during her first , developed cardiomyopathy and had pacer placed, and she was started on metoprolol. Today she noted a mild headache checked BP at 1pm it was 177/99, recheck in a few hours was 145/85. Patient took tylenol 250mg at 6pm. Patient reached out to OBGYN who recommended her go to the ED for evaluation. In ED she received 37.5mg metoprolol succinate, BP improved to 136/82, no change in headache. Patient denies any changes in vision, difficulty with speech, brain fog, weakness in extremities, change in sensation. She denies any fever chills, had slight nausea that since resolved, no CP abd pain diarrhea constipation SOB. Patient follows Dr. Lynn for cardiology. Allergies Allergy/AdvReac Type Severity Reaction Status Date / Time No Known Allergies Allergy Verified 04/14/23 22:35 Home Medications Medication Instructions Recorded Confirmed Type metoprolol succinate 25 mg 25 mg PO QPM 02/26/19 04/14/23 History tablet,extended release 24 hr cholecalciferol (vitamin D3) 50 50 mcg PO DAILY 09/28/19 04/14/23 History mcg (2,000 unit) capsule (Vitamin D3) coQ10 (ubiquinol) 100 mg capsule 100 mg PO DAILY 09/28/19 04/14/23 History cyanocobalamin (vitamin B-12) 1,000 mcg PO DAILY 09/28/19 04/14/23 History 1,000 mcg tablet enoxaparin 60 mg/0.6 mL 60 mg subcut BID 04/14/23 04/14/23 History subcutaneous syringe vit no.95-ferrous 1 tab PO DAILY 04/14/23 04/14/23 History fumarate 28 mg-folic acid 800 mcg tablet () Past Med/Surg History Medical History (Updated 04/15/23 @ 05:03 by Epifanio Kearney PA-C) Anemia 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 Menorrhagia Transient ischemic attack (TIA) 04/2018 (NO CURRENT PROBLEMS) Pacemaker 05/2019 IMPLANTED AT [facility] (FOLLOWED BY DR. LYNN) [employer] DEVICE Junctional cardiac arrhythmia Atrial fibrillation History of high blood pressure Surgical History History of hysteroscopy with resection of uterine septum and Mirena placement. Nausea and vomiting after administration of anesthetic agent Willow teeth removed History of myringotomy History of D&C History of section X 1 Family History Grandmother (Paternal) DVT (deep vein thrombosis) in Stroke Other No significant family history Denies family history of Ovarian cancer Breast cancer Colorectal cancer Social History Smoking Status: Never smoker Second Hand Exposure: No; Do You Dip or Chew Tobacco: No; Hx Alcohol Use: No Hx Substance Use: No Preferred Language: Amharic Communication Ability: Effective Beliefs That Will Affect Care: None Current Living Situation: Significant Other Other Information That Helps Us Care for You: No Feels Safe at Home: Yes Safety Concerns: Feels Safe At This Time Assistive Devices: None Physical Exam Constitutional: WD/WN, vitals as above Eyes: PERRL, conjunctivae normal, anicteric sclerae ENMT: external ear and nose normal, oropharynx normal Neck: trachea midline, no thyromegaly Respiratory: normal respiratory effort, lungs clear to auscultation Cardiovascular: RRR, no murmur, no edema Gastrointestinal (Abdomen): Inspection/Auscultation: abdomen normal to inspection Musculoskeletal: no cyanosis or clubbing, extremities motor strength 5/5 Skin: no rashes, warm and dry Neurologic: PERRL, EOMI, accommodation nl, no face palsy, no dysarthria CN's II-XI intact bilaterally Results & Data Results & Data Vital Signs (Past 12 Hours) Vital Signs Temp Pulse Pulse Resp BP BP Pulse Ox 04/15/23 01:10 85 18 136/82 99 04/15/23 00:31 81 20 135/76 98 04/15/23 00:00 80 04/15/23 00:00 80 18 120/78 98 04/14/23 23:30 82 17 133/83 98 04/14/23 23:00 159/92 H 04/14/23 22:30 82 11 L 122/78 97 04/14/23 21:50 87 16 100 04/14/23 21:30 80 20 139/78 98 04/14/23 21:00 80 20 133/81 100 04/14/23 20:50 80 20 98 04/14/23 20:30 80 18 144/85 H 99 04/14/23 20:20 82 19 98 04/14/23 20:05 84 04/14/23 20:04 89 18 128/78 100 04/14/23 19:34 36.4 C L 87 17 159/73 H 100 O2 Del Method 04/15/23 01:10 Room Air 04/15/23 00:31 Room Air 04/15/23 00:00 04/15/23 00:00 Room Air 04/14/23 23:30 04/14/23 23:00 04/14/23 22:30 04/14/23 21:50 04/14/23 21:30 04/14/23 21:00 04/14/23 20:50 04/14/23 20:30 04/14/23 20:20 04/14/23 20:05 04/14/23 20:04 Room Air 12/24/23 19:34 Room Air Supervising Physician Co-Signing Physician Notes Attending addendum: I have physically seen this patient, have supervised the medical residents activities, and agree with the H&P unless as otherwise noted. Assessment and Plan: Hypertension/headache/status post delivery x 4 days- Phone consult with [facility] physicians request the patient be admitted here for observation Status post metoprolol succinate 37.5 CT head negative for stroke No acute neurologic issues Admit to medical telemetry Unable to order MRI brain at this time due to pacer presence and need to be placed in MRI compatible mode Consult cardiology Atrial fibrillation/presence of pacer- medications as above Continue [facility] Resident Activity Tracking Resident Involvement: Resident Care Provided Care Provided: Adult Hospital Medicine
[2023-04-15] MEDS ORDERED: ACETAMINOPHEN 325 MG TAB PO STA (01:42)
--- NOTE | 2023-04-15 01:59 | CT Scan Report ---
Exam(s): CT HEAD Without Contrast EXAM: CT Head Without Intravenous Contrast CLINICAL HISTORY: Reason for exam: headache post C section. TECHNIQUE: Axial computed tomography images of the head/brain without intravenous contrast. Automated exposure control was utilized for the study. A dose lowering technique was utilized adhering to the principles of ALARA. COMPARISON: No relevant prior studies available. FINDINGS: No acute intracranial hemorrhage. No midline shift or mass effect. The territorial vernon-white matter differentiation is maintained throughout. The ventricles and sulci are commensurate with age. The visualized orbits appear grossly unremarkable. The calvarium is intact. The visualized paranasal sinuses and mastoid air cells are grossly clear. IMPRESSION: No acute intracranial hemorrhage, midline shift, or mass effect. Electronically signed by: Kumar Wilson MD 04/15/23 01:58 AM
[2023-04-15] MEDS ORDERED: POLYETHYLENE (MIRALAX) 17 GM PACK PO PRN (02:30)
[2023-04-15] MEDS ORDERED: ACETAMINOPHEN 325 MG TAB PO PRN (02:30)
--- NOTE | 2023-04-15 06:53 | Electrocardiogram Report ---
Test Reason : Blood Pressure : / mmHG Vent. Rate : 082 BPM Atrial Rate : 089 BPM P-R Int : 000 ms QRS Dur : 152 ms QT Int : 386 ms P-R-T Axes : 000 050 -76 degrees QTc Int : 450 ms Ventricular-paced rhythm Abnormal ECG When compared with ECG of 01-OCT-2019 08:00, Vent. rate has increased BY 22 BPM Confirmed by Jeff Shaw ([id number]) on 04/15/2023 6:53:29 AM Referred By: REFERRED SELF Confirmed By:Jeff Shaw
[2023-04-15 07:52] LABS: Basophils # (auto) 0.04 K/uL (0.00-0.20); Basophils % (auto) 0.6 %; Eosinophils # (auto) 0.09 K/uL (0.00-0.50); Eosinophils % (auto) 1.2 %; Hematocrit (blood only) 23.3 % (37.0-47.0); Hemoglobin 7.9 g/dl (12.0-16.0); Immature Granulocytes # (auto) 0.15 K/uL (0.01-0.20); Immature Granulocytes % (auto) 2.1 %; Lymphocytes # (auto) 1.05 K/uL (1.20-3.40); Lymphocytes % (auto) 14.5 %; Mean Corpuscular Hemoglobin 31.9 pg (25.0-34.0); Mean Corpuscular Hgb Conc 33.9 g/dL (32.0-36.0); Monocytes % (auto) 6.9 %; Neutrophils # (auto) 5.42 K/uL (1.40-6.50); Neutrophils % (auto) 74.7 %; Platelet Count 232 K/uL (130-400); RDW Coefficient of Variation 14.9 % (11.5-14.5); RDW Standard Deviation 51.6 fL (36.4-46.3); Red Blood Count 2.48 M/uL (4.20-5.40); White Blood Count 7.25 K/ul (4.8-10.8)
[2023-04-15 08:26] LABS: Albumin Level 3.3 gm/dl (3.4-5.0); Anion Gap 8 (3-11); Bilirubin,Total 0.3 mg/dl (0.2-1.0); Calcium 8.9 mg/dl (8.6-10.3); Carbon Dioxide 23 mmol/L (21-32); Chloride 108 mmol/L (98-107); Magnesium 1.8 mg/dl (1.7-2.4); Potassium 3.5 mmol/L (3.5-5.1); Sodium 139 mmol/L (136-145)
[2023-04-15 08:33] LABS: Alanine Aminotransferase 8 U/L (7-52); Albumin Globulin Ratio 1.1 (0.9-2); Alkaline Phosphatase 94 U/L (34-104); Aspartate Aminotransferase 11 U/L (13-39); BUN Creatinine Ratio 13.5 (10-20); Blood Urea Nitrogen 5 mg/dl (6-23); Creatinine Clr Calc Pharmacy 170.5 ml/min; Est GFR (African American) > 150.0 ml/min; Est GFR (Non-African American) 135.6 ml/min; Globulin 2.9 gm/dl (2.5-4.0); Glucose 90 mg/dl (70-99(Fasting)); Total Protein 6.2 gm/dl (6.0-8.3)
[2023-04-15 08:57] LABS: RBC Morphology Unremarkable
[2023-04-15] MEDS ORDERED: PRENATAL VITAMIN 1 TAB PO SCH (09:00)
[2023-04-15] MEDS ORDERED: CHOLECALCIFEROL 1,000 UNITS 25 MCG TAB PO SCH (09:00)
[2023-04-15] MEDS ORDERED: CYANOCOBALAMIN (B-12) 500 MCG TABLET PO SCH (09:00)
[2023-04-15] MEDS ORDERED: NON-FORMULARY MEDICATION (Coq10 (Ubiquinol) 100 mg Capsule) PO SCH (09:00)
[2023-04-15] MEDS ORDERED: ENOXAPARIN INJ 60 MG/0.6 ML SYR SQ SCH (09:00)
--- NOTE | 2023-04-15 09:29 | XRay Report ---
XR chest 1V portable CLINICAL HISTORY: htn post C section 4 days ago TECHNIQUE: Single frontal radiograph of the chest was obtained. Comparison: None available at the time of this dictation. FINDINGS: An implanted pacemaker is seen. The cardiomediastinal silhouette is normal. The lungs are clear. No e vidence of pleural effusion or pneumothorax. IMPRESSION: No acute abnormalities and in particular no evidence of pulmonary edema. ACT 112: Negative or not required by law. Electronically signed by: Vipin Desouza M.D. 04/15/2023 9:27 AM
[2023-04-15 13:00] LABS: Appearance Urine Clear (Clear); Bacteria Urine Automated Negative (Negative); Bilirubin Urine Negative (Negative); Blood Urine 3+ (Negative); Cast Urine Automated 0 /lpf (0-5); Color Urine Yellow; Glucose Urine UA Negative (Negative); Ketones Urine 2+ (Negative); Leukocyte Esterase Urine Trace (Negative); Nitrite Urine Negative (Negative); Protein Urine Negative (Negative); RBC Urine Automated 0-4 /hpf (0-4); Specific Gravity Urine 1.005 (1.000-1.030); Urobilinogen Urine Negative (Negative); pH Urine 5.5 (4.5-7.5)
--- NOTE | 2023-04-15 14:10 | Discharge Summary ---
Date of Service April 15, 2023 Admission HPI Per Admitting Provider 37yo Female with PMH HTN during , TIA, afib, cardiomegaly with pacer, here for concern headache and HTN. Patient states she had a c section 04/10, recovered well from procedure. There were complications with HTN during her first , developed cardiomyopathy and had pacer placed, and she was started on metoprolol. Today she noted a mild headache checked BP at 1pm it was 177/99, recheck in a few hours was 145/85. Patient took tylenol 250mg at 6pm. Patient reached out to OBGYN who recommended her go to the ED for evaluation. In ED she received 37.5mg metoprolol succinate, BP improved to 136/82, no change in headache. Patient denies any changes in vision, difficulty with speech, brain fog, weakness in extremities, change in sensation. She denies any fever chills, had slight nausea that since resolved, no CP abd pain diarrhea constipation SOB. Patient follows Dr. Lynn for cardiology. Principal Diagnosis HTN Discharge Exam Constitutional: well-developed, well-nourished patient, in no acute distress, pleasant and normal affect, intact memory. AOx3. Vitals as above. HEENT: No scleral injection or discharge. Moist mucous membranes. Neck: Supple without lymphadenopathy. Trachea midline. Lungs: CTAB, no wheezes/rales/rhonchi Cardiac: RRR.No lower extremity edema. 2+ distal peripheral pulses. Abdomen: Soft and nontender.No guarding. MSK: No cyanosis or clubbing. Skin: No rashes, warm, dry. Neurologic: no focal deficits. PERRL. EOMI. Discharge Data Allergies Allergy/AdvReac Type Severity Reaction Status Date / Time No Known Allergies Allergy Verified 04/14/23 22:35 Consultations 04/15/23 00:49 ED Decision to Admit Stat 04/15/23 02:30 Consult Cardiology Routine Ordered Studies Laboratory Results WBC 7.25 K/ul (4.8-10.8) 04/15/23 07:33 RBC 2.48 M/uL (4.20-5.40) L 04/15/23 07:33 Hgb 7.9 g/dl (12.0-16.0) L 04/15/23 07:33 Hct 23.3 % (37.0-47.0) L 04/15/23 07:33 MCV 94.0 fL (80.0-100.0) 04/15/23 07:33 MCH 31.9 pg (25.0-34.0) 04/15/23 07:33 MCHC 33.9 g/dL (32.0-36.0) 04/15/23 07:33 RDW Std Deviation 51.6 fL (36.4-46.3) H 04/15/23 07:33 RDW Coeff of Timoteo 14.9 % (11.5-14.5) H 04/15/23 07:33 Plt Count 232 K/uL (130-400) 04/15/23 07:33 MPV 10.0 fL (9.4-12.4) 04/15/23 07:33 Immature Gran % (Auto) 2.1 % 04/15/23 07:33 Neut % (Auto) 74.7 % 04/15/23 07:33 Lymph % (Auto) 14.5 % 04/15/23 07:33 [place] % (Auto) 6.9 % 04/15/23 07:33 Eos % (Auto) 1.2 % 04/15/23 07:33 Baso % (Auto) 0.6 % 04/15/23 07:33 Neut # (Auto) 5.42 K/uL (1.40-6.50) 04/15/23 07:33 Lymph # (Auto) 1.05 K/uL (1.20-3.40) L 04/15/23 07:33 [place] # (Auto) 0.50 K/uL (0.11-0.59) 04/15/23 07:33 Eos # (Auto) 0.09 K/uL (0.00-0.50) 04/15/23 07:33 Baso # (Auto) 0.04 K/uL (0.00-0.20) 04/15/23 07:33 Immature Gran # (Auto) 0.15 K/uL (0.01-0.20) 04/15/23 07:33 RBC Morphology Unremarkable 04/15/23 07:33 Sodium 139 mmol/L (136-145) 04/15/23 07:33 Potassium 3.5 mmol/L (3.5-5.1) 04/15/23 07:33 Chloride 108 mmol/L (98-107) H 04/15/23 07:33 Carbon Dioxide 23 mmol/L (21-32) 04/15/23 07:33 Anion Gap 8 (3-11) 04/15/23 07:33 BUN 5 mg/dl (6-23) L 04/15/23 07:33 Creatinine 0.37 mg/dl (0.6-1.2) L 04/15/23 07:33 Est Cr Clr Drug Dosing 170.5 ml/min 04/15/23 07:33 Est GFR ( Amer) > 150.0 ml/min 04/15/23 07:33 Est GFR (Non-Af Amer) 135.6 ml/min 04/15/23 07:33 BUN/Creatinine Ratio 13.5 (10-20) 04/15/23 07:33 Glucose 90 mg/dl (70-99(Fasting)) 04/15/23 07:33 Calcium 8.9 mg/dl (8.6-10.3) 04/15/23 07:33 Magnesium 1.8 mg/dl (1.7-2.4) 04/15/23 07:33 Total Bilirubin 0.3 mg/dl (0.2-1.0) 04/15/23 07:33 AST 11 U/L (13-39) L 04/15/23 07:33 ALT 8 U/L (7-52) 04/15/23 07:33 Alkaline Phosphatase 94 U/L (34-104) 04/15/23 07:33 Troponin I High Sens 7.5 pg/ml (0-14) 04/14/23 19:40 Total Protein 6.2 gm/dl (6.0-8.3) D 04/15/23 07:33 Albumin 3.3 gm/dl (3.4-5.0) L 04/15/23 07:33 Globulin 2.9 gm/dl (2.5-4.0) 04/15/23 07:33 Albumin/Globulin Ratio 1.1 (0.9-2) 04/15/23 07:33 Urine Color Yellow 04/15/23 12:35 Urine Appearance Clear (Clear) 04/15/23 12:35 Urine pH 5.5 (4.5-7.5) 04/15/23 12:35 Ur Specific [place] 1.005 (1.000-1.030) 04/15/23 12:35 Urine Protein Negative (Negative) 04/15/23 12:35 Urine Glucose (UA) Negative (Negative) 04/15/23 12:35 Urine Ketones 2+ (Negative) H 04/15/23 12:35 Urine Blood 3+ (Negative) H 04/15/23 12:35 Urine Nitrite Negative (Negative) 04/15/23 12:35 Urine Bilirubin Negative (Negative) 04/15/23 12:35 Urine Urobilinogen Negative (Negative) 04/15/23 12:35 Ur Leukocyte Esterase Trace (Negative) H 04/15/23 12:35 Urine WBC (Auto) 1-5 /hpf (0-5) 04/15/23 12:35 Urine RBC (Auto) 0-4 /hpf (0-4) 04/15/23 12:35 U Hyaline Cast (Auto) 0 /lpf (0-5) 04/15/23 12:35 U Epithel Cells (Auto) 10-20 /lpf (0-5) H 04/15/23 12:35 Urine Bacteria (Auto) Negative (Negative) 04/15/23 12:35 Impressions Chest X-Ray 04/15/23 00:11 XR chest 1V portable CLINICAL HISTORY: htn post C section 4 days ago TECHNIQUE: Single frontal radiograph of the chest was obtained. Comparison: None available at the time of this dictation. FINDINGS: An implanted pacemaker is seen. The cardiomediastinal silhouette is normal. The lungs are clear. No evidence of pleural effusion or pneumothorax. IMPRESSION: No acute abnormalities and in particular no evidence of pulmonary edema. ACT 112: Negative or not required by law. Electronically signed by: Vipin Desouza M.D. 04/15/2023 9:[address] 04/15/23 00:11 Exam(s): CT HEAD Without Contrast EXAM: CT Head Without Intravenous Contrast CLINICAL HISTORY: Reason for exam: headache post C section. TECHNIQUE: Axial computed tomography images of the head/brain without intravenous contrast. Automated exposure control was utilized for the study. A dose lowering technique was utilized adhering to the principles of ALARA. COMPARISON: No relevant prior studies available. FINDINGS: No acute intracranial hemorrhage. No midline shift or mass effect. The territorial vernon-white matter differentiation is maintained throughout. The ventricles and sulci are commensurate with age. The visualized orbits appear grossly unremarkable. The calvarium is intact. The visualized paranasal sinuses and mastoid air cells are grossly clear. IMPRESSION: No acute intracranial hemorrhage, midline shift, or mass effect. Electronically signed by: Kumar Wilson MD 04/15/23 01:58 AM Hospital Course (1) Hypertension: 37 yo female with PMHx HTN, TIA, afib, cardiomyopathy, and atrial arrhythmia with junctional rhythm s/p dual chamber pacemaker here for concern HTN. She just delivered her 2nd child via on 04/10/25. #HTN, acute on chronic -chronically on 12.5mg metoprolol succinate. During her recent she was initially uptitrated to 25mg and then 37.5mg during her last trimester. After delivery she was advised to continue with 25mg until seen by Dr. Lynn. 5 days later, she had an elevated BP reading of 177/99 at home which prompted her to come in for further evaluation. Only other symptom is generalized headache 06/01. -received metoprolol succinate 37.5mg in ED. -tylenol prn -CT head and EKG unremarkable. -no acute neurological symptoms -repeat UA without protein. LFTs neg. -ultimately patient's BP appear to be stable wnl. At this point we can discharge her back on her home dose of metoprolol 25mg qhs. She can recheck her BP in the mornings and if >130 systolically or >90 diastolically can take an additional 12.5mg qam. This can be done until she follows up with Dr. Lynn next week. She should watch out for red flag symptoms including but not limited to worsening headache, blurry vision, lightheadedness, dizziness. #Afib #h/o DVT -continue lovenox (2) Headache: (3) Atrial fibrillation: (4) Transient ischemic attack (TIA): (5) Pacemaker: Total Time Total Time Spent Total Time Spent (In Minutes): 30 Discharge Plan Discharge Items Patient Disposition: Home - Self-Care Reason For Visit: HTN Discharge Diagnosis: HTN Condition on Discharge: Good Activity: Per Instructions section Non-emergency contact: Primary Care Provider, Lap Checker and Quantitative Researcher Call non-emergency contact if: you have any medication questions and your symptoms worsen Follow-up/Referrals: Chiara Fortune, [Primary Care Provider] - Diet: Heart Healthy Addtl Attending Provider Instructions: We have monitored you're BP in the hospital since your admission and they have been looked great thus far. It's unclear the exact nature of your episodic increase but none of our testing thus far showed any abnormalities. Following discharge, you should continue to take metoprolol 25mg at night. You can then recheck your BP in the morning and if it is above >130 (top number) or >90 (bottom number), you can take an additional 12.5mg. You can take tylenol as needed for headache. You can continue doing this until following up with your glass checker next week. Pending Studies at Discharge: No Stand-Alone Forms: [facility], Smoking Cessation Medications and DC Order Prescriptions: Continued metoprolol succinate 25 mg tablet extended release 24 hr 25 mg PO QPM cyanocobalamin (vitamin B-12) 1,000 mcg Tablet 1,000 mcg PO DAILY cholecalciferol (vitamin D3) [Vitamin D3] 50 mcg (2,000 unit) Capsule 50 mcg PO DAILY coQ10 (ubiquinol) 100 mg Capsule 100 mg PO DAILY enoxaparin 60 mg/0.6 mL syringe 60 mg subcut BID PNV cmb#[id number]-ferrous fumarate-FA [] 28 mg iron- 800 mcg Tablet 1 tab PO DAILY Discharge Orders: Discharge Order (Routine); Ordered 04/15/23 Ordered By: Flaco Forbes Admission Data Admit Date/Time: 04/15/23 01:47 Attending Provider: Masha Sierra Admit Provider: Minal Win Primary Care Provider: Chiara Fortune Other Providers: Kyle Garcia; Sai Lynn Other Interventions: Discharge Summary Assessment (RN) Last Done: 04/15/23 14:25 Supervising Physician Co-Signing Physician Notes Attending Physician Supervision Note: I independently interviewed and examined the patient and verified the hopkins history and physical, reviewed labs and image studies and agree with findings and care plan noted above. Mild diffuse headache, no chest pain, shortness of breath, leg edema, numbness/tingling vitals noted, comfortable, no resp distress. Regular heart rate, no leg edema. Headache with Accelerated HTN 4 days post- in patient with h/o CMP during previous - BP improved with increase in metoprolol dose to 37.5mgs. Headache improved. UA on admission with 1+ protein - recheck - negative for protein, no leg edema. Discharged home with 37.5mgs metoprolol. Low salt diet. Anemia - 4 days post- status- No concern of significant active blood loss. Minimal vaginal bleeding reported. continue iron supplement. Resident Activity Tracking Resident Involvement: Resident Care Provided Care Provided: Adult Hospital Medicine
[2023-04-15] MEDS ORDERED: METOPROLOL SUCC 25MG EXT REL TAB PO SCH (21:00)
--- NOTE | 2023-04-16 12:17 | Billing Data ---
Date of Service April 16, 2023 Coding Level of Care Code 39260 INT INP/OBS CARE
== END 2023-04-15 17:03 | disposition home or self-care (01) ==
LOC: 2N 19:31 → ED 19:31 → SUATTDRO 04-15 01:47 → 2N 04-15 02:04